=== PATIENT | male | born 1940 | race Caucasian/White ===

== ENCOUNTER 2017-03-04 17:06 | Inpatient (IN) | payer MEDICARE, BC ==
[2017-03-04] MEDS ORDERED: Docusate Sodium 100 MG Cap PO PRN (17:35)
[2017-03-04] MEDS ORDERED: Acetaminophen 325 MG Tab PO PRN (17:35)
[2017-03-04 17:40] LABS: CHLORIDE,CL 105 mEq/L (98-106); SODIUM,NA 140 mEq/L (136-145)
[2017-03-04] MEDS ORDERED: Lactated Ringers 1,000 ML IV SCH (17:45)
[2017-03-04] MEDS ORDERED: Acetaminophen 500 MG Tab PO PRN (18:35)
[2017-03-04] MEDS: Sodium Chloride 0.9% 1,000 ML IV SCH (20:22)
[2017-03-04] MEDS: Mirtazapine 15 MG Tab PO SCH (20:28)
[2017-03-05] MEDS: Sodium Chloride 0.9% 1,000 ML IV SCH (06:10)
[2017-03-05] MEDS: atorvaSTATin 20 MG Tab PO SCH (08:43)
[2017-03-05] MEDS: Sertraline 25 MG Tab PO SCH (08:43)
[2017-03-05] MEDS: Levothyroxine 100 MCG Tab PO SCH (08:43)
[2017-03-05] MEDS: Pantoprazole 40 MG Vial IVPUSH SCH (09:55)
--- NOTE | 2017-03-05 10:16 | PN ---
DATE: 03/05/2017 S: Dillon Michael Bright came in with GI bleeding. He is basically without complaints. No pain at all, but he is on anticoagulants for atrial fibrillation. O: NECK: On examination today, neck was supple. CHEST: Clear. CARDIAC: Regular, grade 2 to 3 murmur, left sternal border. ABDOMEN: Soft. Bowel sounds are good. No palpable mass or tenderness. ASSESSMENT: GASTROINTESTINAL BLEEDING, QUESTION ETIOLOGY. P: His hemoglobin is down 7.5, I will type and cross, transfuse unit, give him some Aqua-Shavon and keep him off the Coumadin and go from there. MARIANNE/CRIS /[id number]
[2017-03-05] MEDS: Sucralfate 1 GM Tab PO SCH ×2 (11:28→16:59)
[2017-03-05] MEDS ORDERED: Warfarin 5 MG Tab PO SCH (12:00)
[2017-03-05] MEDS: Mirtazapine 15 MG Tab PO SCH (19:45)
[2017-03-06] MEDS: Sucralfate 1 GM Tab PO SCH ×2 (06:41→11:15)
[2017-03-06] MEDS: Pantoprazole 40 MG Vial IVPUSH SCH (08:34)
[2017-03-06] MEDS: atorvaSTATin 20 MG Tab PO SCH (08:34)
[2017-03-06] MEDS: Sertraline 25 MG Tab PO SCH (08:35)
[2017-03-06] MEDS: Levothyroxine 100 MCG Tab PO SCH (08:35)
[2017-03-06 13:17] VITALS: BP 149/69
--- NOTE | 2017-03-07 08:25 | PN ---
DATE: 03/06/2017 S: Dillon Bright is in with GI bleeding. O: GENERAL: The patient is alert and orientated. VITAL SIGNS: As noted. NECK: Supple. CHEST: Clear. CARDIAC: Regular. ABDOMEN: Soft. ASSESSMENT AND PLAN: He did receive 2 units of blood yesterday. Hemoglobin was at 9.9. I will check it again this afternoon. He is bound and determined to go home, and will go from there. I gave him AquaMEPHYTON yesterday to bring INR. We just have to keep him off Coumadin until we evaluate this GI bleeding. MARIANNE/CRIS /[id number]
--- NOTE | 2017-03-07 08:28 | DISCH ---
REASON FOR HOSPITALIZATION: Dillon Bright is a gentleman who came in with GI bleeding, on anticoagulation for atrial fibrillation. During his stay here, his cardiac status remained normal, so I think he is in paroxysmal atrial fibrillation. I did stop his Coumadin and gave him AquaMEPHYTON, had a type and cross and transfused 2 units of RBCs, because hemoglobin dropped down to 7.5, today it has been consistent at 9.7, no evidence of further GI bleeding. PHYSICAL EXAMINATION: NECK: Supple. CHEST: Clear. CARDIAC: Regular. ABDOMEN: Soft. IMPRESSION: 1. Gastrointestinal bleeding, question etiology. 2. Depression. 3. Hypertension. 4. Atrial fibrillation. 5. Hypothyroidism. DISPOSITION: The patient is now discharged home. I will see him back in the clinic on Saturday for a hemoglobin check, and I will proceed with EGD and colonoscopy because of this GI bleeding. He has not had either procedure for a long time. DISCHARGE MEDICATIONS: Include home medications except warfarin and I added Protonix 40 daily. DISCHARGE DIAGNOSIS: 1. GASTROINTESTINAL BLEED. 2. ATRIAL FIBRILLATION. 3. HYPOTHYROIDISM. MARIANNE/CRIS /[id number]
== END 2017-03-06 15:10 | disposition home or self-care (01) | DRG 812 ==
LOC: CC.LAB 17:06 → UNDOADMIN 17:30 → CC.MS 17:30
PROVIDERS: ADMIT Physician Assistant Medical; ATTEND General Practice
PROC: 30253N1 (ICD-10-PCS; principal; 2017-03-04)
DX: D64.9 Anemia, unspecified (principal); K92.2 Gastrointestinal hemorrhage, unspecified; I95.9 Hypotension, unspecified; I48.0 Paroxysmal atrial fibrillation; R53.1 Weakness; Z79.01 Long term (current) use of anticoagulants; F32.9 Major depressive disorder, single episode, unspecified; I10 Essential (primary) hypertension; E03.9 Hypothyroidism, unspecified
CPT/HCPCS: 36415; 36430; 80048; 81001; 82270; 82550; 84484; 85025; 85610; 86850; 86900; 86901; 86920; 86922; 93005; 93010; A9270-GY; C9113; J3430; J7030; J7120; P9016

== ENCOUNTER → 2017-03-08 | Day surgery (SDC) | payer MEDICARE, BC ==
[~2017-03-08] MED LIST: Lactated Ringers 1,000 ML IV SCH; Propofol 200 MG/20 ML SDV IV ONE
[2017-03-08 14:13] VITALS: BP 122/69
--- NOTE | 2017-03-11 07:56 | OR ---
DATE OF OPERATION: 03/08/2017 PREOPERATIVE DIAGNOSIS: GI BLEED. POSTOPERATIVE DIAGNOSIS: GI BLEED. SURGEON: Darien Becker MD PROCEDURE: 1. FULL-LENGTH EGD WITH BIOPSIES X2, HECTOR. 2. COLONOSCOPY. 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 BODY AFTER ALLERGIES: COMPLICATIONS: None. SPECIMEN: 1. Pyloric biopsy x2. 2. HECTOR. FINDINGS: 1. Full-length EGD. 2. Multiple gastric ulcers, distal antrum without active bleeding. 3. Essentially normal full length colonoscopy with minimal diverticular disease. RECOMMENDATIONS: Medical follow up with Dr. Gavin. INDICATIONS: The patient was recently in the hospital with a hemoglobin of [address] positive stool[address] Dr. Gavin, ultimately sent him for upper and lower endoscopy. DESCRIPTION OF PROCEDURE: The patient was prepped and draped, placed in left lateral decubitus position. A lubricated Olympus gastroscope inserted over a bit and easily intubated in the esophagus. Esophageal lining was benign for the most part of its entire course. Z-line around 39.5 to 40 cm. No hiatal hernia, stricturing or inflammatory change seen. Scope advanced into the stomach through the pylorus and ultimately into the second and third portion of duodenum, these appeared benign as did the bulb. Scope was brought back into the stomach and retroflexed. The upper fundus and cardia appeared unremarkable. Upon straightening, for the most part of the distal fundus and antrum were benign. Near the pylorus patient had 4 to 5 chronic gastric ulcers none of them had adherent clot or signs of any active bleeding at this time. Two biopsies of those areas were taken along with a HECTOR test. Air was then suctioned and scope was removed from the stomach without complication. A lubricated Olympus colonoscope was then inserted and relatively easily advanced all way to the cecum. Direct visualization of the ileocecal valve and appendiceal orifice was accomplished. Bowel prep was fine. Upon withdrawal of the scope, the cecum, ascending, and transverse colon appeared grossly unremarkable throughout the left colon including the sigmoid and rectosigmoid areas. I found no signs of any polyps, mass, ulcerations, or bleeding sites. There were no vascular abnormalities or signs of colitis. There were minimal scattered diverticula without any inflammatory change. The rectal vault appeared benign. Retroflexion showed no anal lesions. Air was then suctioned and scope was removed without complication. MJP/MODL /[id number]
== END ==
LOC: CC.SDS 07:54
PROVIDERS: ATTEND Family Medicine
DX: K31.7 Polyp of stomach and duodenum (principal); Q43.8 Other specified congenital malformations of intestine; K57.30 Diverticulosis of large intestine without perforation or abscess without bleeding; K31.89 Other diseases of stomach and duodenum; I10 Essential (primary) hypertension; E78.5 Hyperlipidemia, unspecified; N40.0 Benign prostatic hyperplasia without lower urinary tract symptoms; E53.8 Deficiency of other specified B group vitamins; Z95.2 Presence of prosthetic heart valve; Z98.890 Other specified postprocedural states; Z79.01 Long term (current) use of anticoagulants; Z87.891 Personal history of nicotine dependence; Z72.0 Tobacco use
CPT/HCPCS: 36415; 43239; 45378; 85025; 85610; 87081; J2704; J7120; 00810; 88305

== ENCOUNTER 2017-05-15 13:12 | Emergency (ER) | payer MEDICARE, BC ==
--- NOTE | 2017-05-15 13:56 | EDM.PDOC ---
ED HPI GENERAL MEDICAL PROBLEM - General Chief Complaint: General Stated Complaint: "spaced out" Time Seen by Provider: 05/15/17 13:35 Source of Information: Reports: Patient, Family History Limitations: Reports: No Limitations - History of Present Illness INITIAL COMMENTS - FREE TEXT/NARRATIVE: Pt was sitting at kitchen table and "spaced out" according to lasted about 2-3 minutes. Did answer questions. Was able to stand up with help of son and was brought in. No weakness was noted at that time. Doesn't remember the episode. He accurately remembers what he did this morning according to . 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 Is on coumadin for valve replacement in the past. Is blind in the left eye and he states that the eye Dr. told him he thinks that he had a stroke in that eye. No weakness on either side. Denies any headache, dizziness or weakness. States that he feels fine now. Onset: Sudden Associated Symptoms: Reports: No Other Symptoms - Related Data Allergies Allergy/AdvReac Type Severity Reaction Status Date / Time No Known Allergies Allergy Verified 05/15/17 13:20 Home Meds: Home Meds Acetaminophen [Tylenol Extra Strength] 1,000 mg PO Q6H PRN 04/26/15 [History] Levothyroxine Sodium [Synthroid] 100 mcg PO DAILY 04/26/15 [History] Metoprolol Succinate [Toprol XL 50mg] 50 mg PO DAILY 04/26/15 [History] Mirtazapine [Remeron] 15 mg PO BEDTIME 04/26/15 [History] atorvaSTATin Calcium [Atorvastatin Calcium] 40 mg PO DAILY 04/26/15 [History] Sertraline HCl 50 mg PO DAILY 03/04/17 [History] Pantoprazole Sodium [Protonix] 40 mg PO DAILY 03/07/17 [History] Warfarin [Coumadin] 2.5 mg PO DAILY 05/15/17 [History] Past Medical History HEENT History: Reports: Glaucoma Other HEENT History: blind in left eye Cardiovascular History: Reports: Aneurysm, High Cholesterol, Hypertension Gastrointestinal History: Reports: GERD Psychiatric History: Reports: Depression Endocrine/Metabolic History: Reports: Hypothyroidism Hematologic History: Reports: Anticoagulation Therapy - Past Surgical History HEENT Surgical History: Reports: Cataract Surgery Cardiovascular Surgical History: Reports: Aneurysm, Valve Replacement GI Surgical History: Reports: Cholecystectomy Social & Family History - Tobacco Use Smoking Status *Q: Former Smoker Years of Tobacco use: 20 Used Tobacco, but Quit: Yes Month Tobacco Last Used: 1994 Second Hand Smoke Exposure: No - Caffeine Use Caffeine Use: Reports: Coffee - Recreational Drug Use Recreational Drug Use: No ED ROS GENERAL - Review of Systems Review Of Systems: See Below Constitutional: Reports: No Symptoms HEENT: Reports: No Symptoms Respiratory: Reports: No Symptoms Cardiovascular: Reports: No Symptoms GI/Abdominal: Reports: No Symptoms : Reports: No Symptoms Musculoskeletal: Reports: No Symptoms Skin: Reports: No Symptoms Neurological: Reports: Other (see HPI) Psychiatric: Denies: Agitation, Anxiety, Confusion ED EXAM, GENERAL - Physical Exam Exam: See Below Exam Limited By: No Limitations General Appearance: Alert, WD/WN, No Apparent Distress Eye Exam: Left Eye: Vision Changes (blind in the left eye.), Bilateral Eye: PERRL Ears: Normal External Exam, Normal Canal, Hearing Grossly Normal, Normal TMs Nose: Normal Inspection Throat/Mouth: Normal Inspection, Normal Oropharynx, Normal Voice, No Airway Compromise Head: Atraumatic Neck: Normal Inspection, Supple, Non-Tender Respiratory/Chest: No Respiratory Distress, Lungs Clear, Normal Breath Sounds Cardiovascular: Normal Peripheral Pulses, No Edema GI/Abdominal: Normal Bowel Sounds, Soft, Non-Tender Extremities: Normal Inspection, Non-Tender, No Pedal Edema, Normal Capillary Refill Neurological: Alert, Oriented, CN II-XII Intact, Normal Cognition, Normal Gait, Normal Reflexes, No Motor/Sensory Deficits Psychiatric: Normal Affect, Normal Mood Skin Exam: Warm, Dry, Intact, Normal Color Course - Vital Signs Last Recorded V/S: Last Vital Signs Temp 96.9 F 05/15/17 13:21 Pulse 59 L 05/15/17 13:21 Resp 18 05/15/17 13:21 BP 155/81 H 05/15/17 14:39 Pulse Ox 96 05/15/17 13:21 - Orders/Labs/Meds Labs: Laboratory Tests 05/15/17 05/15/17 05/15/17 Range/Units 13:49 14:00 14:00 WBC 6.3 (5.0-10.0) 10^3/uL RBC 4.58 (4.50-6.00) 10^6/uL Hgb 13.3 L (14.0-18.0) g/dL Hct 40.9 (40.0-54.0) % MCV 89.3 (82.0-94.0) fL MCH 29.0 (27.0-32.0) pg MCHC 32.5 L (33.0-38.0) g/dL RDW Coeff of Deborah 14.1 (11.0-15.0) % Plt Count 139 L (150-400) 10^3/uL Neut % (Auto) 72.0 (35-85) % Lymph % (Auto) 10.5 (10-55) % [place]duff[place] % (Auto) 12.4 (0-16) % Eos % (Auto) 4.6 (0-5) % Baso % (Auto) 0.5 (0-3) % Neut # (Auto) 4.51 (1.80-7.00) 10^3/uL Lymph # (Auto) 0.66 L (1.00-4.80) 10^3/uL Mcduffie # (Auto) 0.78 (0.00-0.80) 10^3/uL Eos # (Auto) 0.29 (0.00-0.45) 10^3/uL Baso # (Auto) 0.03 10^3/uL PT 19.0 H (9.7-12.3) SEC INR 1.73 H (0.92-1.18) Sodium (136-145) mEq/L Potassium (3.5-5.0) mEq/L Chloride (98-106) mEq/L Carbon Dioxide (21-32) mmol/L BUN (7-18) mg/dL Creatinine (0.7-1.3) mg/dL Est Cr Clr Drug Dosing mL/min Estimated GFR (MDRD) (>=60) mL/min Glucose (75-99) mg/dL Calcium (8.4-10.1) mg/dL Urine Color Yellow (YELLOW) Urine Appearance Clear (CLEAR) Urine pH 5.5 (4.5-8.0) Ur Specific [place] 1.010 (1.003-1.020) Urine Protein Negative (NEGATIVE) mg/dL Urine Glucose (UA) Negative (NEGATIVE) mg/dL Urine Ketones Negative (NEGATIVE) mg/dL Urine Occult Blood Trace-intact H (NEGATIVE) Urine Nitrite Negative (NEGATIVE) Urine Bilirubin Negative (NEGATIVE) Urine Urobilinogen 0.2 (0.2-1.0) EU/dL Ur Leukocyte Esterase Negative (NEGATIVE) Urine RBC Not seen (0-5) /HPF Urine WBC Not seen (0-5) /HPF 05/15/17 Range/Units 14:00 WBC (5.0-10.0) 10^3/uL RBC (4.50-6.00) 10^6/uL Hgb (14.0-18.0) g/dL Hct (40.0-54.0) % MCV (82.0-94.0) fL MCH (27.0-32.0) pg MCHC (33.0-38.0) g/dL RDW Coeff of Deborah (11.0-15.0) % Plt Count (150-400) 10^3/uL Neut % (Auto) (35-85) % Lymph % (Auto) (10-55) % [place]duffie % (Auto) (0-16) % Eos % (Auto) (0-5) % Baso % (Auto) (0-3) % Neut # (Auto) (1.80-7.00) 10^3/uL Lymph # (Auto) (1.00-4.80) 10^3/uL Mcduffie # (Auto) (0.00-0.80) 10^3/uL Eos # (Auto) (0.00-0.45) 10^3/uL Baso # (Auto) 10^3/uL PT (9.7-12.3) SEC INR (0.92-1.18) Sodium 140 (136-145) mEq/L Potassium 5.1 H (3.5-5.0) mEq/L Chloride 105 (98-106) mEq/L Carbon Dioxide 31 (21-32) mmol/L BUN 22 H (7-18) mg/dL Creatinine 1.6 H (0.7-1.3) mg/dL Est Cr Clr Drug Dosing 43.94 mL/min Estimated GFR (MDRD) 42 L (>=60) mL/min Glucose 109 H (75-99) mg/dL Calcium 9.1 (8.4-10.1) mg/dL Urine Color (YELLOW) Urine Appearance (CLEAR) Urine pH (4.5-8.0) Ur Specific [place] (1.003-1.020) Urine Protein (NEGATIVE) mg/dL Urine Glucose (UA) (NEGATIVE) mg/dL Urine Ketones (NEGATIVE) mg/dL Urine Occult Blood (NEGATIVE) Urine Nitrite (NEGATIVE) Urine Bilirubin (NEGATIVE) Urine Urobilinogen (0.2-1.0) EU/dL Ur Leukocyte Esterase (NEGATIVE) Urine RBC (0-5) /HPF Urine WBC (0-5) /HPF - Re-Assessments/Exams Free Text/Narrative Re-Assessment/Exam: 05/15/17 1500 In to discuss the CT results which are without changes. Reviewed lab results with the pt and . Departure - Departure Time of Disposition: 15:01 Disposition: Home, Self-Care 01 Condition: Good Clinical Impression: TIA (transient ischemic attack) Qualifiers: Transient cerebral ischemia type: unspecified Qualified Code(s): G45.9 - Transient cerebral ischemic attack, unspecified - Discharge Information Referrals: Matthew Gavin MD [Primary Care Provider] - Forms: ED Department Discharge Additional Instructions: Increase coumadin to 2.5 mg 4 times a week Recheck with Dr. Gavin in 2 weeks for INR and recheck Carotid Ultrasound- schedule with xray Recheck if changes or symptoms reoccur - Problem List & Annotations (1) TIA (transient ischemic attack) SNOMED Code(s): 836839237, [id number] Code(s): G45.9 - TRANSIENT CEREBRAL ISCHEMIC ATTACK, UNSPECIFIED Status: Acute Priority: High Qualifiers: Transient cerebral ischemia type: unspecified Qualified Code(s): G45.9 - Transient cerebral ischemic attack, unspecified - Problem List Review Problem List Initiated/Reviewed/Updated: Yes
[2017-05-15 14:39] VITALS: BP 155/81
== END 2017-05-15 15:10 | disposition home or self-care (01) ==
LOC: CC.ED 13:12
DX: G45.9 Transient cerebral ischemic attack, unspecified (principal); K21.9 Gastro-esophageal reflux disease without esophagitis; E03.9 Hypothyroidism, unspecified; Z90.49 Acquired absence of other specified parts of digestive tract; Z95.5 Presence of coronary angioplasty implant and graft; Z87.891 Personal history of nicotine dependence; Z79.899 Other long term (current) drug therapy; Z79.01 Long term (current) use of anticoagulants
CPT/HCPCS: 36415; 70450; 80048; 81001; 85025; 85610; 99284

== ENCOUNTER 2018-01-24 08:48 | Inpatient (IN) | payer MEDICARE, BC ==
--- NOTE | 2018-01-24 15:58 | PCM.HP ---
H&P History of Present Illness - General Date of Service: 01/24/18 Source of Information: Patient, Other (Hospital Records) History Limitations: Reports: No Limitations - History of Present Illness Initial Comments - Free Text/Narative: Dillon is a 77 year old male with PMH of [place], atrial fibrillation, hypertension, hyperlipidemia, hypothyroidism, and CAD who is admitted to swing bed from [facility]. 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 He is admitted to swing bed for wound care. He currently has wound vac to his right foot with suction at 125. He does have extensive medical history. He underwent mitral valve clipping for severe MR on 12/24/2017. He also had recent angiogram revealing 80% stenosis of his left ICA. This was unable to be stented due to calcification and tortuosity of the vessel. He has been on both Plavix and Coumadin for the above issues. Throughout hospitalization at [place], they have struggled with bleeding from both his right foot and his right thigh skin graft site. They did stop the wound vac for some time and have also replaced it. They have been reinforcing the dressing to control bleeding. Upon arrival to hospital, patient has significant bleeding from both right foot and skin graft site to right thigh. Both dressings are saturated with blood. Patient denies any pain. Canister from wound vac has scant amount of sanginous drainage. He reports he has been feeling well. He has no complaints. Contacted Dr. Manuel (plastic surgeon at [facility]) to discuss bleeding. He recommends we just continue to reinforce dressing and change wound vac as needed. He recommend we discuss Plavix and Coumadin use with staff radiographer. Discussed with Dr. Kingston (cardiology at [facility]). He reports we can stop Plavix and weight the benefit vs. risk of continuing Coumadin. I do feel that given patients recent mitral valve clipping and 80% stenosis of left carotid, we should continue Coumadin as directed by Coumadin clinic in [place]. - Related Data Allergies/Adverse Reactions: Allergies Allergy/AdvReac Type Severity Reaction Status Date / Time No Known Allergies Allergy Verified 01/24/18 11:50 Home Medications: Home Meds Acetaminophen [Tylenol Extra Strength] 1,000 mg PO Q6H PRN 04/26/15 [History] Levothyroxine Sodium [Synthroid] 100 mcg PO DAILY 04/26/15 [History] Metoprolol Succinate [Toprol XL 50mg] 50 mg PO DAILY 04/26/15 [History] Mirtazapine [Remeron] 15 mg PO BEDTIME 04/26/15 [History] atorvaSTATin Calcium [Atorvastatin Calcium] 40 mg PO DAILY 04/26/15 [History] Sertraline HCl 50 mg PO DAILY 03/04/17 [History] Pantoprazole Sodium [Protonix] 40 mg PO DAILY 03/07/17 [History] Warfarin [Coumadin] 2.5 mg PO MOWEFR 05/15/17 [History] Clopidogrel [Plavix] 75 mg PO DAILY 01/24/18 [History] Ferrous Sulfate 325 mg PO DAILY 01/24/18 [History] Folic Acid 1 mg PO DAILY 01/24/18 [History] Latanoprost [Xalatan 0.005% Ophth Soln] 1 drop EYELF BEDTIME 01/24/18 [History] Lisinopril [Prinivil] 10 mg PO DAILY 01/24/18 [History] Warfarin [Coumadin] 1.25 mg PO SUTUTHSA 01/24/18 [History] oxyCODONE HCl/Acetaminophen [Oxycodone-Acetaminophen 5-325] 1 - 2 tab PO Q4H PRN 01/24/18 [History] Past Medical History HEENT History: Reports: Glaucoma Other HEENT History: blind in left eye Cardiovascular History: Reports: Aneurysm, High Cholesterol, Hypertension Gastrointestinal History: Reports: GERD Psychiatric History: Reports: Depression Endocrine/Metabolic History: Reports: Hypothyroidism Hematologic History: Reports: Anticoagulation Therapy - Past Surgical History HEENT Surgical History: Reports: Cataract Surgery Cardiovascular Surgical History: Reports: Aneurysm, Valve Replacement, Other ( See Below) Other Cardiovascular Surgeries/Procedures: Percutaneous repair of Mitral valve with deann clip device GI Surgical History: Reports: Cholecystectomy Social & Family History - Family History Family Medical History: Unobtainable - Caffeine Use Caffeine Use: Reports: Coffee H&P Review of Systems - Review of Systems: Review Of Systems: See Below General: Reports: Weakness. Denies: Fever, Chills, Fatigue, Decreased Appetite HEENT: Reports: No Symptoms Pulmonary: Denies: Shortness of Breath, Wheezing, Pleuritic Chest Pain, Cough, Sputum Cardiovascular: Reports: Dyspnea on Exertion. Denies: Chest Pain, Palpitations , Orthopnea, Lightheadedness, Syncope Gastrointestinal: Reports: No Symptoms. Denies: Abdominal Pain, Diarrhea, Nausea, Vomiting Genitourinary: Reports: No Symptoms. Denies: Dysuria, Frequency, Urgency Musculoskeletal: Reports: Leg Pain, Foot Pain Skin: Reports: Other (ecchymosis to abdomen, skin graft to right thign, wound vac to right foot) Psychiatric: Reports: Depression Neurological: Reports: Weakness. Denies: Confusion, Dizziness, Headache, Numbness, Syncope, Tingling Hematologic/Lymphatic: Reports: Easy Bleeding Immunologic: Reports: No Symptoms Exam - Exam Exam: See Below - Vital Signs Vital Signs: Last Vital Signs Temp 96.0 F 01/24/18 15:22 Pulse 60 01/24/18 15:22 Resp 20 01/24/18 15:22 BP 96/45 L 01/24/18 15:22 Pulse Ox 97 01/24/18 15:22 Weight: 180 lb 9.6 oz - Exam Quality Assessment: DVT Prophylaxis, Skin Breakdown General: Alert, Oriented, 4 Neck: Supple, Trachea Midline, 2 Lungs: Clear to Auscultation, Normal Respiratory Effort Cardiovascular: Regular Rate, Regular Rhythm, Systolic Murmur GI/Abdominal Exam: Normal Bowel Sounds, Soft, Non-Tender, No Organomegaly, No Distention, No Abnormal Bruit, No Mass, Pelvis Stable Extremities: Normal Capillary Refill, Leg Pain, Other (skin graft to right thigh , wound vac to right foot- actively bleeding). No: Increased Warmth, Redness Peripheral Pulses: 1+: Posterior Tibial (R), Dorsalis Pedis (R) Skin: Warm, Dry, Ecchymosis (abdomen), Wound (right thigh and right foot, see images) Neurological: Cranial Nerves Intact Neuro Extensive - Mental Status: Alert, Oriented x3, Other (flat affect) Psychiatric: Alert, Depressed, Other (flat affect) - Patient Data Result Diagrams: 01/24/18 16:05 01/24/18 16:05 - Problem List (1) Malignant melanoma of foot SNOMED Code(s): 199428017 ICD Code: C43.70 - MALIGNANT MELANOMA OF UNSPECIFIED LOWER LIMB, INCLUDING HIP Status: Acute Current Visit: Yes Qualifiers: Laterality: right Qualified Code(s): C43.71 - Malignant melanoma of right lower limb, including hip (2) Status post skin graft SNOMED Code(s): 824380454, 483859837, 350232658 ICD Code: Z94.5 - SKIN TRANSPLANT STATUS Status: Acute Current Visit: Yes (3) Status post implantation of mitral valve leaflet clip SNOMED Code(s): 46425656689038 ICD Code: Z98.890 - OTHER SPECIFIED POSTPROCEDURAL STATES; Z95.818 - PRESENCE OF OTHER CARDIAC IMPLANTS AND GRAFTS Status: Acute Current Visit: Yes (4) Carotid stenosis, left SNOMED Code(s): 284516766258063 ICD Code: I65.22 - OCCLUSION AND STENOSIS OF LEFT CAROTID ARTERY Status: Chronic Current Visit: Yes (5) Marfan's disease SNOMED Code(s): 69368986 ICD Code: Q87.40 - MARFAN'S SYNDROME, UNSPECIFIED Status: Chronic Current Visit: Yes (6) Hypertension SNOMED Code(s): 45157241 ICD Code: I10 - ESSENTIAL (PRIMARY) HYPERTENSION Status: Chronic Current Visit: Yes Qualifiers: Hypertension type: essential hypertension Qualified Code(s): I10 - Essential (primary) hypertension (7) Hyperlipidemia SNOMED Code(s): 58277999 ICD Code: E78.5 - HYPERLIPIDEMIA, UNSPECIFIED Status: Chronic Current Visit: Yes Qualifiers: Hyperlipidemia type: unspecified Qualified Code(s): E78.5 - Hyperlipidemia , unspecified (8) Hypothyroidism SNOMED Code(s): 08811493 ICD Code: E03.9 - HYPOTHYROIDISM, UNSPECIFIED Status: Chronic Current Visit: Yes Qualifiers: Hypothyroidism type: unspecified Qualified Code(s): E03.9 - Hypothyroidism , unspecified (9) Atrial fibrillation SNOMED Code(s): 71858865 ICD Code: I48.91 - UNSPECIFIED ATRIAL FIBRILLATION Status: Chronic Priority: Medium Current Visit: No Qualifiers: Atrial fibrillation type: chronic Qualified Code(s): I48.2 - Chronic atrial fibrillation (10) Status post right foot surgery SNOMED Code(s): 118957216, 47106492, 690653056 ICD Code: Z98.890 - OTHER SPECIFIED POSTPROCEDURAL STATES Status: Acute Current Visit: Yes Problem List Initiated/Reviewed/Updated: Yes Assessment/Plan Comment:: Change wound vac every [address] vaseline gauze under foam with dressing changes. Patient to be non-weightbearing to right foot. Use crutches for ambulation TID. Prevlon boots to BLE when in bed. No strenuous lifting, pushing, or pulling anything greater than 5 lbs for 6 weeks. Reinforce dressing to control bleeding. Notify provider if bleeding is uncontrolled and filling canister of wound vac. Hgb 8.3. Will monitor. Recheck in 2 days. Liver enzymes elevated in presence of normal bilirubin 0.8. AST 350. ALT 277. Patient has no abdominal pain. Will monitor labs. Creatinine 2.0. This is above patients baseline creatinine of ~1.5. Will give 1 L NS. Lab results discussed with Dr. Gavin, who was agreeable with above plan.
[2018-01-24] MEDS ORDERED: Sodium Chloride 0.9% 10 ML Syringe FLUSH PRN (16:18)
[2018-01-24] MEDS ORDERED: Acetaminophen 325 MG Tab PO PRN (16:18)
[2018-01-24] MEDS ORDERED: Sodium Chloride 0.9% 1,000 ML IV ONE (17:09)
[2018-01-24] MEDS: Acetaminophen 500 MG Tab PO PRN (19:40)
[2018-01-24] MEDS: Mirtazapine 15 MG Tab PO SCH (19:40)
[2018-01-24] MEDS: Latanoprost 0.005% Ophth Soln 2.5 ML Bottle EYELF SCH (19:48)
[2018-01-24] MEDS: Acetaminophen/oxyCODONE 325-5 MG Tab PO PRN (22:53)
[2018-01-25] MEDS ORDERED: Lactated Ringers 1,000 ML IV ONE (00:54)
[2018-01-25] MEDS: Pantoprazole 40 MG Tab.CR PO SCH (06:30)
[2018-01-25] MEDS: Levothyroxine 100 MCG Tab PO SCH (06:30)
[2018-01-25] MEDS: Folic Acid 1 MG Tab PO SCH (08:00)
[2018-01-25] MEDS: Simvastatin 20 MG Tab PO SCH (08:00)
[2018-01-25] MEDS: Lisinopril 10 MG Tab PO SCH (08:00)
[2018-01-25] MEDS: Sertraline 25 MG Tab PO SCH (08:00)
[2018-01-25] MEDS: Ferrous Sulfate 324 MG Tab.EC PO SCH (08:00)
[2018-01-25] MEDS: Acetaminophen/oxyCODONE 325-5 MG Tab PO PRN ×2 (16:27→20:10)
[2018-01-25] MEDS: Mirtazapine 15 MG Tab PO SCH (19:27)
[2018-01-25] MEDS: Latanoprost 0.005% Ophth Soln 2.5 ML Bottle EYELF SCH (19:27)
[2018-01-26] MEDS: Levothyroxine 100 MCG Tab PO SCH (07:03)
[2018-01-26] MEDS: Pantoprazole 40 MG Tab.CR PO SCH (07:03)
[2018-01-26] MEDS: Lisinopril 10 MG Tab PO SCH (08:00)
[2018-01-26] MEDS: Folic Acid 1 MG Tab PO SCH (08:33)
[2018-01-26] MEDS: Ferrous Sulfate 324 MG Tab.EC PO SCH (08:33)
[2018-01-26] MEDS: Simvastatin 20 MG Tab PO SCH (08:33)
[2018-01-26] MEDS: Sertraline 25 MG Tab PO SCH (08:33)
[2018-01-26] MEDS ORDERED: Sodium Chloride 0.9% 250 ML ONE (09:25)
[2018-01-26] MEDS ORDERED: Warfarin 2.5 MG Tab PO ONE (12:00)
[2018-01-26] MEDS: Acetaminophen 500 MG Tab PO PRN (16:36)
[2018-01-26] MEDS: Acetaminophen/oxyCODONE 325-5 MG Tab PO PRN (19:40)
[2018-01-26] MEDS: Mirtazapine 15 MG Tab PO SCH (19:40)
[2018-01-26] MEDS: Latanoprost 0.005% Ophth Soln 2.5 ML Bottle EYELF SCH (20:02)
[2018-01-27] MEDS: Simvastatin 20 MG Tab PO SCH (07:47)
[2018-01-27] MEDS: Levothyroxine 100 MCG Tab PO SCH (07:47)
[2018-01-27] MEDS: Folic Acid 1 MG Tab PO SCH (07:47)
[2018-01-27] MEDS: Sertraline 25 MG Tab PO SCH (07:47)
[2018-01-27] MEDS: Ferrous Sulfate 324 MG Tab.EC PO SCH (07:48)
[2018-01-27] MEDS: Pantoprazole 40 MG Tab.CR PO SCH (07:48)
[2018-01-27] MEDS: Lisinopril 10 MG Tab PO SCH (08:23)
[2018-01-27] MEDS: Mirtazapine 15 MG Tab PO SCH (19:53)
[2018-01-27] MEDS: Docusate Sodium 100 MG Cap PO PRN (19:53)
[2018-01-27] MEDS: Latanoprost 0.005% Ophth Soln 2.5 ML Bottle EYELF SCH (19:54)
[2018-01-27] MEDS: Acetaminophen/oxyCODONE 325-5 MG Tab PO PRN (19:56)
[2018-01-28] MEDS: Pantoprazole 40 MG Tab.CR PO SCH (06:32)
[2018-01-28] MEDS: Levothyroxine 100 MCG Tab PO SCH (06:32)
[2018-01-28] MEDS: Ferrous Sulfate 324 MG Tab.EC PO SCH (07:53)
[2018-01-28] MEDS: Simvastatin 20 MG Tab PO SCH (07:53)
[2018-01-28] MEDS: Sertraline 25 MG Tab PO SCH (07:54)
[2018-01-28] MEDS: Folic Acid 1 MG Tab PO SCH (07:54)
[2018-01-28] MEDS: Lisinopril 10 MG Tab PO SCH (08:10)
[2018-01-28] MEDS: Warfarin 5 MG Tab PO SCH (13:13)
[2018-01-28] MEDS: Acetaminophen/oxyCODONE 325-5 MG Tab PO PRN (19:59)
[2018-01-28] MEDS: Latanoprost 0.005% Ophth Soln 2.5 ML Bottle EYELF SCH (20:00)
[2018-01-28] MEDS: Mirtazapine 15 MG Tab PO SCH (20:00)
[2018-01-28] MEDS: Docusate Sodium 100 MG Cap PO PRN (20:02)
[2018-01-29] MEDS: Pantoprazole 40 MG Tab.CR PO SCH (06:58)
[2018-01-29] MEDS: Levothyroxine 100 MCG Tab PO SCH (06:58)
[2018-01-29] MEDS: Simvastatin 20 MG Tab PO SCH (07:29)
[2018-01-29] MEDS: Lisinopril 10 MG Tab PO SCH (07:29)
[2018-01-29] MEDS: Sertraline 25 MG Tab PO SCH (07:29)
[2018-01-29] MEDS: Folic Acid 1 MG Tab PO SCH (07:29)
[2018-01-29] MEDS: Ferrous Sulfate 324 MG Tab.EC PO SCH (07:30)
[2018-01-29] MEDS: Warfarin 5 MG Tab PO SCH ×2 (08:08→13:12)
[2018-01-29] MEDS: Acetaminophen/oxyCODONE 325-5 MG Tab PO PRN (19:52)
[2018-01-29] MEDS: Mirtazapine 15 MG Tab PO SCH (19:52)
[2018-01-29] MEDS: Latanoprost 0.005% Ophth Soln 2.5 ML Bottle EYELF SCH (19:52)
[2018-01-29] MEDS: Docusate Sodium 100 MG Cap PO PRN (20:02)
[2018-01-30] MEDS: Levothyroxine 100 MCG Tab PO SCH (07:44)
[2018-01-30] MEDS: Sertraline 25 MG Tab PO SCH (07:44)
[2018-01-30] MEDS: Simvastatin 20 MG Tab PO SCH (07:44)
[2018-01-30] MEDS: Ferrous Sulfate 324 MG Tab.EC PO SCH (07:44)
[2018-01-30] MEDS: Folic Acid 1 MG Tab PO SCH (07:44)
[2018-01-30] MEDS: Lisinopril 10 MG Tab PO SCH (07:44)
[2018-01-30] MEDS: Pantoprazole 40 MG Tab.CR PO SCH (07:44)
[2018-01-30] MEDS: Warfarin 5 MG Tab PO SCH (12:39)
[2018-01-30] MEDS: Mirtazapine 15 MG Tab PO SCH (19:29)
[2018-01-30] MEDS: Latanoprost 0.005% Ophth Soln 2.5 ML Bottle EYELF SCH (19:29)
[2018-01-30] MEDS: Acetaminophen/oxyCODONE 325-5 MG Tab PO PRN (19:30)
[2018-01-31] MEDS: Pantoprazole 40 MG Tab.CR PO SCH (06:41)
[2018-01-31] MEDS: Levothyroxine 100 MCG Tab PO SCH (06:41)
[2018-01-31] MEDS: Ferrous Sulfate 324 MG Tab.EC PO SCH (07:34)
[2018-01-31] MEDS: Folic Acid 1 MG Tab PO SCH (07:34)
[2018-01-31] MEDS: Lisinopril 10 MG Tab PO SCH (07:34)
[2018-01-31] MEDS: Simvastatin 20 MG Tab PO SCH (07:34)
[2018-01-31] MEDS: Sertraline 25 MG Tab PO SCH (07:35)
[2018-01-31] MEDS: Acetaminophen/oxyCODONE 325-5 MG Tab PO PRN ×3 (07:36→19:45)
[2018-01-31] MEDS ORDERED: Warfarin 2 MG Tab PO SCH (12:00)
[2018-01-31] MEDS: Mirtazapine 15 MG Tab PO SCH (19:45)
[2018-01-31] MEDS: Latanoprost 0.005% Ophth Soln 2.5 ML Bottle EYELF SCH (19:47)
[2018-02-01] MEDS: Pantoprazole 40 MG Tab.CR PO SCH (06:45)
[2018-02-01] MEDS: Levothyroxine 100 MCG Tab PO SCH (06:45)
[2018-02-01] MEDS: Simvastatin 20 MG Tab PO SCH (07:40)
[2018-02-01] MEDS: Ferrous Sulfate 324 MG Tab.EC PO SCH (07:41)
[2018-02-01] MEDS: Folic Acid 1 MG Tab PO SCH (07:41)
[2018-02-01] MEDS: Sertraline 25 MG Tab PO SCH (07:41)
[2018-02-01] MEDS: Lisinopril 10 MG Tab PO SCH (07:41)
[2018-02-01] MEDS: Docusate Sodium 100 MG Cap PO PRN (09:36)
[2018-02-01] MEDS: Warfarin 2 MG Tab PO SCH (11:45)
[2018-02-01] MEDS: Mirtazapine 15 MG Tab PO SCH (19:29)
[2018-02-01] MEDS: Latanoprost 0.005% Ophth Soln 2.5 ML Bottle EYELF SCH (19:30)
[2018-02-01] MEDS: Acetaminophen/oxyCODONE 325-5 MG Tab PO PRN (20:25)
[2018-02-02] MEDS: Levothyroxine 100 MCG Tab PO SCH (06:32)
[2018-02-02] MEDS: Pantoprazole 40 MG Tab.CR PO SCH (06:32)
[2018-02-02] MEDS: Sertraline 25 MG Tab PO SCH (08:39)
[2018-02-02] MEDS: Folic Acid 1 MG Tab PO SCH (08:40)
[2018-02-02] MEDS: Lisinopril 10 MG Tab PO SCH (08:40)
[2018-02-02] MEDS: Simvastatin 20 MG Tab PO SCH (08:40)
[2018-02-02] MEDS: Ferrous Sulfate 324 MG Tab.EC PO SCH (08:40)
[2018-02-02] MEDS: Acetaminophen/oxyCODONE 325-5 MG Tab PO PRN ×2 (11:26→20:31)
[2018-02-02] MEDS: Warfarin 2 MG Tab PO SCH (11:28)
[2018-02-02] MEDS: Latanoprost 0.005% Ophth Soln 2.5 ML Bottle EYELF SCH (20:31)
[2018-02-02] MEDS: Mirtazapine 15 MG Tab PO SCH (20:31)
[2018-02-03] MEDS: Pantoprazole 40 MG Tab.CR PO SCH (07:06)
[2018-02-03] MEDS: Simvastatin 20 MG Tab PO SCH (07:06)
[2018-02-03] MEDS: Ferrous Sulfate 324 MG Tab.EC PO SCH (07:06)
[2018-02-03] MEDS: Folic Acid 1 MG Tab PO SCH (07:07)
[2018-02-03] MEDS: Levothyroxine 100 MCG Tab PO SCH (07:07)
[2018-02-03] MEDS: Sertraline 25 MG Tab PO SCH (07:13)
[2018-02-03] MEDS: Lisinopril 10 MG Tab PO SCH (07:14)
[2018-02-03] MEDS: Warfarin 2 MG Tab PO SCH (11:28)
[2018-02-03] MEDS: Acetaminophen/oxyCODONE 325-5 MG Tab PO PRN (20:17)
[2018-02-03] MEDS: Mirtazapine 15 MG Tab PO SCH (20:17)
[2018-02-03] MEDS: Latanoprost 0.005% Ophth Soln 2.5 ML Bottle EYELF SCH (20:20)
[2018-02-03] MEDS: Docusate Sodium 100 MG Cap PO PRN (20:22)
[2018-02-04] MEDS: Levothyroxine 100 MCG Tab PO SCH (06:15)
[2018-02-04] MEDS: Pantoprazole 40 MG Tab.CR PO SCH (06:15)
[2018-02-04] MEDS: Simvastatin 20 MG Tab PO SCH (07:13)
[2018-02-04] MEDS: Folic Acid 1 MG Tab PO SCH (07:13)
[2018-02-04] MEDS: Ferrous Sulfate 324 MG Tab.EC PO SCH (07:13)
[2018-02-04] MEDS: Sertraline 25 MG Tab PO SCH (07:14)
[2018-02-04] MEDS: Lisinopril 10 MG Tab PO SCH (07:18)
[2018-02-04] MEDS: Warfarin 2 MG Tab PO SCH (11:00)
[2018-02-04] MEDS: Acetaminophen/oxyCODONE 325-5 MG Tab PO PRN ×2 (11:01→20:28)
[2018-02-04] MEDS: Acetaminophen 500 MG Tab PO PRN (15:29)
[2018-02-04] MEDS: Mirtazapine 15 MG Tab PO SCH (20:27)
[2018-02-04] MEDS: Latanoprost 0.005% Ophth Soln 2.5 ML Bottle EYELF SCH (20:28)
[2018-02-05] MEDS: Pantoprazole 40 MG Tab.CR PO SCH (06:25)
[2018-02-05] MEDS: Levothyroxine 100 MCG Tab PO SCH (06:25)
[2018-02-05] MEDS: Ferrous Sulfate 324 MG Tab.EC PO SCH (07:43)
[2018-02-05] MEDS: Folic Acid 1 MG Tab PO SCH (07:43)
[2018-02-05] MEDS: Simvastatin 20 MG Tab PO SCH (07:43)
[2018-02-05] MEDS: Sertraline 25 MG Tab PO SCH (07:43)
[2018-02-05] MEDS: Lisinopril 10 MG Tab PO SCH (07:47)
[2018-02-05] MEDS: Acetaminophen/oxyCODONE 325-5 MG Tab PO PRN ×2 (10:53→20:17)
[2018-02-05] MEDS: Warfarin 2 MG Tab PO SCH (11:42)
[2018-02-05] MEDS: Mirtazapine 15 MG Tab PO SCH (20:16)
[2018-02-05] MEDS: Latanoprost 0.005% Ophth Soln 2.5 ML Bottle EYELF SCH (20:16)
[2018-02-06] MEDS: Levothyroxine 100 MCG Tab PO SCH (06:16)
[2018-02-06] MEDS: Pantoprazole 40 MG Tab.CR PO SCH (06:16)
[2018-02-06] MEDS: Lisinopril 10 MG Tab PO SCH (08:04)
[2018-02-06] MEDS: Simvastatin 20 MG Tab PO SCH (08:04)
[2018-02-06] MEDS: Folic Acid 1 MG Tab PO SCH (08:04)
[2018-02-06] MEDS: Ferrous Sulfate 324 MG Tab.EC PO SCH (08:04)
[2018-02-06] MEDS: Sertraline 25 MG Tab PO SCH (08:04)
[2018-02-06] MEDS: Acetaminophen 500 MG Tab PO PRN (11:38)
[2018-02-06] MEDS: Mirtazapine 15 MG Tab PO SCH (19:22)
[2018-02-06] MEDS: Latanoprost 0.005% Ophth Soln 2.5 ML Bottle EYELF SCH (19:23)
[2018-02-06] MEDS: Acetaminophen/oxyCODONE 325-5 MG Tab PO PRN (19:25)
[2018-02-07] MEDS: Levothyroxine 100 MCG Tab PO SCH (06:15)
[2018-02-07] MEDS: Pantoprazole 40 MG Tab.CR PO SCH (06:16)
[2018-02-07 07:37] VITALS: BP 111/54
[2018-02-07] MEDS: Sertraline 25 MG Tab PO SCH (07:48)
[2018-02-07] MEDS: Simvastatin 20 MG Tab PO SCH (07:48)
[2018-02-07] MEDS: Ferrous Sulfate 324 MG Tab.EC PO SCH (07:48)
[2018-02-07] MEDS: Folic Acid 1 MG Tab PO SCH (07:48)
[2018-02-07] MEDS: Lisinopril 10 MG Tab PO SCH (07:48)
--- NOTE | 2018-02-07 08:34 | PCM.DCSUM1 ---
Discharge Summary - Hospital Course HPI Initial Comments: Dillon is a 77 year old male with PMH of [place], atrial fibrillation, hypertension, hyperlipidemia, hypothyroidism, and CAD who was admitted to swing bed from [facility] on 01/24/2018. 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 He was admitted to swing bed for wound care and assistance with ADLs. He currently has wound vac to his right foot with suction at 125. This was followed by [facility] throughout hospital stay. He does have extensive medical history. He underwent mitral valve clipping for severe MR on 12/24/2017. He also had recent angiogram revealing 80% stenosis of his left ICA. This was unable to be stented due to calcification and tortuosity of the vessel. He had been on both Plavix and Coumadin for the above issues. We did initially struggle with bleeding from both his right foot and his right thigh skin graft site. Dr. Manuel (plastic surgeon at [facility]) was consulted to discuss bleeding. He recommended we just continue to reinforce dressing and change wound vac as needed. Discussed with Dr. Kingston ( cardiology at [facility]) bleeding issues and blood thinners. He advised us to stop Plavix and continue Coumadin. Patient's hemoglobin did drop to 6.8. He was transfused 2 units PRBCs and hemoglobin remained stable. Antibody screen was negative, however patient reportedly had E+ antibodies from previous type and cross. THis was not knowledge to us until after transfusion. We did recheck type and screen and it was once again negative for antibodies. Patient VS and hemoglobin were monitored throughout stay and patient was stable. Hgb stable at 9.2 at time of discharge. Patient otherwise had a rather uneventful hospital stay. He was followed by PT throughout stay. At time of discharge patient was cleared from physical therapy as he was meeting all goals. Patient was continued on Coumadin and INR remained therapeutic throughout stay. He will be discharged home on 1.5 mg daily of Coumadin and all other home medications. He will f/u with Dr. Gavin next week for recheck and labs. He will follow up per Plastics and Cargiology recommendations from [facility]. - Discharge Data Discharge Date: 02/07/18 Discharge Disposition: Home, Self-Care 01 Condition: Good - Discharge Diagnosis/Problem(s) (1) Malignant melanoma of foot SNOMED Code(s): 690920677 ICD Code: C43.70 - MALIGNANT MELANOMA OF UNSPECIFIED LOWER LIMB, INCLUDING HIP Status: Acute Qualifiers: Laterality: right Qualified Code(s): C43.71 - Malignant melanoma of right lower limb, including hip (2) Status post skin graft SNOMED Code(s): 640955466, 145310738, 778563702 ICD Code: Z94.5 - SKIN TRANSPLANT STATUS Status: Acute (3) Status post implantation of mitral valve leaflet clip SNOMED Code(s): 78842519508642 ICD Code: Z98.890 - OTHER SPECIFIED POSTPROCEDURAL STATES; Z95.818 - PRESENCE OF OTHER CARDIAC IMPLANTS AND GRAFTS Status: Acute (4) Carotid stenosis, left SNOMED Code(s): 500119876643823 ICD Code: I65.22 - OCCLUSION AND STENOSIS OF LEFT CAROTID ARTERY Status: Chronic (5) Marfan's disease SNOMED Code(s): 39988074 ICD Code: Q87.40 - MARFAN'S SYNDROME, UNSPECIFIED Status: Chronic (6) Hypertension SNOMED Code(s): 51430035 ICD Code: I10 - ESSENTIAL (PRIMARY) HYPERTENSION Status: Chronic Qualifiers: Hypertension type: essential hypertension Qualified Code(s): I10 - Essential (primary) hypertension (7) Hyperlipidemia SNOMED Code(s): 52807016 ICD Code: E78.5 - HYPERLIPIDEMIA, UNSPECIFIED Status: Chronic Qualifiers: Hyperlipidemia type: unspecified Qualified Code(s): E78.5 - Hyperlipidemia , unspecified (8) Hypothyroidism SNOMED Code(s): 16205110 ICD Code: E03.9 - HYPOTHYROIDISM, UNSPECIFIED Status: Chronic Qualifiers: Hypothyroidism type: unspecified Qualified Code(s): E03.9 - Hypothyroidism , unspecified (9) Atrial fibrillation SNOMED Code(s): 87045661 ICD Code: I48.91 - UNSPECIFIED ATRIAL FIBRILLATION Status: Chronic Priority: Medium Qualifiers: Atrial fibrillation type: chronic Qualified Code(s): I48.2 - Chronic atrial fibrillation (10) Status post right foot surgery SNOMED Code(s): 652205856, 38938659, 558107802 ICD Code: Z98.890 - OTHER SPECIFIED POSTPROCEDURAL STATES Status: Acute (11) Anemia SNOMED Code(s): 377508330 ICD Code: D64.9 - ANEMIA, UNSPECIFIED Status: Acute Qualifiers: Anemia type: unspecified type Qualified Code(s): D64.9 - Anemia, unspecified - Patient Summary/Data Consults: Consultations 01/24/18 16:18 PT Evaluation and Treatment [CONS] Routine - Patient Instructions Diet: Usual Diet as Tolerated Activity: As Tolerated Notify Provider of: Fever, Increased Pain, Swelling and Redness, Drainage - Discharge Plan Prescriptions/Med Rec: Warfarin [Coumadin] 1.5 mg PO DAILY 30 Days #45 tablet Home Medications: Home Meds Acetaminophen [Tylenol Extra Strength] 1,000 mg PO Q6H PRN 04/26/15 [History] Levothyroxine Sodium [Synthroid] 100 mcg PO DAILY 04/26/15 [History] Metoprolol Succinate [Toprol XL 50mg] 50 mg PO DAILY 04/26/15 [History] Mirtazapine [Remeron] 15 mg PO BEDTIME 04/26/15 [History] atorvaSTATin Calcium [Atorvastatin Calcium] 40 mg PO DAILY 04/26/15 [History] Sertraline HCl 50 mg PO DAILY 03/04/17 [History] Pantoprazole Sodium [Protonix] 40 mg PO DAILY 03/07/17 [History] Clopidogrel [Plavix] 75 mg PO DAILY 01/24/18 [History] Ferrous Sulfate 325 mg PO DAILY 01/24/18 [History] Folic Acid 1 mg PO DAILY 01/24/18 [History] Latanoprost [Xalatan 0.005% Ophth Soln] 1 drop EYELF BEDTIME 01/24/18 [History] Lisinopril [Prinivil] 10 mg PO DAILY 01/24/18 [History] oxyCODONE HCl/Acetaminophen [Oxycodone-Acetaminophen 5-325] 1 - 2 tab PO Q4H PRN 01/24/18 [History] Warfarin [Coumadin] 1.5 mg PO DAILY 30 Days #45 tablet 02/07/18 [Rx] Referrals: Matthew Gavin MD [Primary Care Provider] - - General Info Date of Service: 02/07/18 Subjective Update: Patient reports he is feeling well. He is anxious to discharge home. He has met all PT goals and is cleared by PT. Wound vac in place. Dressing CDI. Functional Status: Reports: Pain Controlled, Tolerating Diet, Ambulating, Urinating - Review of Systems General: Reports: No Symptoms Pulmonary: Reports: No Symptoms Cardiovascular: Reports: No Symptoms Gastrointestinal: Reports: No Symptoms Genitourinary: Reports: No Symptoms Musculoskeletal: Reports: No Symptoms Skin: Reports: Other (wound to RLE, wound vac in place) Neurological: Reports: No Symptoms Psychiatric: Reports: No Symptoms - Patient Data Vitals - Most Recent: Last Vital Signs Temp 97.7 F 02/07/18 07:37 Pulse 70 02/07/18 07:37 Resp 16 02/07/18 07:37 BP 111/54 L 02/07/18 07:37 Pulse Ox 96 02/07/18 07:37 Weight - Most Recent: 182 lb 4.8 oz Lab Results - Last 24 hrs: Laboratory Results - last 24 hr 02/07/18 Range/Units 07:05 PT 25.0 H (9.7-12.3) SEC INR 2.58 H (0.92-1.18) Med Orders - Current: Current Medications Acetaminophen (Tylenol Extra Strength) 1,000 mg PO Q6H PRN PRN Reason: Pain Last Admin: 02/06/18 11:38 Dose: 1,000 mg Docusate Sodium (Colace) 100 mg PO DAILY PRN PRN Reason: Constipation Last Admin: 02/03/18 20:22 Dose: 100 mg Ferrous Sulfate (Ferrous Sulfate) 324 mg PO DAILY [facility] Last Admin: 02/07/18 07:48 Dose: 324 mg Folic Acid (Folic Acid) 1 mg PO DAILY [facility] Last Admin: 02/07/18 07:48 Dose: 1 mg Latanoprost (Xalatan 0.005% Ophth Soln) 0 ml EYELF BEDTIME [facility] Last Admin: 02/06/18 19:23 Dose: 1 drop Levothyroxine Sodium (Synthroid) 100 mcg PO DAILY@0700 [facility] Last Admin: 02/07/18 06:15 Dose: 100 mcg Lisinopril (Prinivil) 10 mg PO DAILY [facility] Last Admin: 02/07/18 07:48 Dose: 10 mg Mirtazapine (Remeron) 15 mg PO BEDTIME [facility] Last Admin: 02/06/18 19:22 Dose: 15 mg Oxycodone/Acetaminophen (Percocet 325-5 Mg) 1 - 2 tab PO Q4H PRN PRN Reason: Pain Last Admin: 02/06/18 19:25 Dose: 1 tab Pantoprazole Sodium (Protonix) 40 mg PO ACBREAKFAST [facility] Last Admin: 02/07/18 06:16 Dose: 40 mg Sertraline HCl (Zoloft) 50 mg PO DAILY [facility] Last Admin: 02/07/18 07:48 Dose: 50 mg Simvastatin (Zocor) 20 mg PO DAILY [facility] Last Admin: 02/07/18 07:48 Dose: 20 mg Sodium Chloride (Saline Flush) 10 ml FLUSH ASDIRECTED PRN PRN Reason: Keep Vein Open Last Admin: 02/02/18 08:46 Dose: 10 ml Warfarin Sodium (Coumadin) 1.5 mg PO DAILY@1200 [facility] Last Admin: 02/06/18 11:37 Dose: 1.5 mg Discontinued Medications Acetaminophen (Tylenol) 650 mg PO Q4H PRN PRN Reason: Pain (Mild 1-3)/fever Sodium Chloride (Normal Saline) 1,000 mls @ 75 mls/hr IV ONETIME ONE Stop: 01/25/18 06:28 Last Admin: 01/24/18 17:23 Dose: 75 mls/hr Lactated Ringer's (Ringers, Lactated) 1,000 mls @ 500 mls/hr IV ONETIME ONE Stop: 01/25/18 02:53 Last Admin: 01/25/18 00:55 Dose: 500 mls/hr Sodium Chloride (Normal Saline) Confirm Administered Dose 250 mls @ as directed .ROUTE .STK-MED ONE Stop: 01/26/18 09:26 Last Admin: 01/26/18 09:38 Dose: 75 mls/hr Warfarin Sodium (Coumadin) 2.5 mg PO ONETIME ONE Stop: 01/26/18 12:01 Last Admin: 01/26/18 12:05 Dose: 2.5 mg Warfarin Sodium (Coumadin) 5 mg PO DAILY [facility] Last Admin: 01/29/18 08:08 Dose: Not Given Warfarin Sodium (Coumadin) 5 mg PO DAILY@1200 [facility] Last Admin: 01/30/18 12:39 Dose: 5 mg Warfarin Sodium (Coumadin) 2 mg PO DAILY@1200 [facility] Warfarin Sodium (Coumadin) 2 mg PO DAILY@1200 [facility] Last Admin: 02/05/18 11:42 Dose: 2 mg - Exam Quality Assessment: Reports: DVT Prophylaxis General: Reports: Alert, Oriented, No Acute Distress Neck: Reports: Supple Lungs: Reports: Clear to Auscultation, Normal Respiratory Effort Cardiovascular: Reports: Regular Rate, Regular Rhythm GI/Abdominal Exam: Normal Bowel Sounds, Soft, Non-Tender, No Organomegaly, No Distention, No Abnormal Bruit, No Mass, Pelvis Stable Extremities: Other (wound vac in place to RLE, graft site covered, CDI) Wound/Incisions: Reports: Healing Well Neurological: Reports: No New Focal Deficit Psy/Mental Status: Reports: Alert, Normal Affect, Normal Mood *Q Meaningful Use (DIS) - VTE *Q VTE Pharmacological Contraindications *Q: Risk of Bleeding VTE Anticoagulation Contraindications: Alternative [place] Request PT
== END 2018-02-07 17:00 | disposition home or self-care (01) | DRG 949 ==
LOC: UNDOADMIN 14:13 → CC.MS 14:13 → UNDOADMIN 16:18 → CC.MS 16:18
PROVIDERS: ADMIT General Practice; ATTEND General Practice
PROC: 30233N1 Transfusion of Nonautologous Red Blood Cells into Peripheral Vein, Percutaneous Approach (ICD-10-PCS; principal; 2018-01-26)
DX: Z48.817 Encounter for surgical aftercare following surgery on the skin and subcutaneous tissue (principal); Q87.40 Marfan syndrome, unspecified; Z94.5 Skin transplant status; D64.9 Anemia, unspecified; I10 Essential (primary) hypertension; E03.9 Hypothyroidism, unspecified; I25.10 Atherosclerotic heart disease of native coronary artery without angina pectoris; C43.71 Malignant melanoma of right lower limb, including hip; I77.1 Stricture of artery; I65.22 Occlusion and stenosis of left carotid artery; I48.2 Chronic atrial fibrillation; H40.9 Unspecified glaucoma; H54.7 Unspecified visual loss; K21.9 Gastro-esophageal reflux disease without esophagitis; F32.9 Major depressive disorder, single episode, unspecified; R53.1 Weakness; R06.00 Dyspnea, unspecified; G89.18 Other acute postprocedural pain; Z66 Do not resuscitate; Z79.01 Long term (current) use of anticoagulants; Z79.02 Long term (current) use of antithrombotics/antiplatelets; Z95.818 Presence of other cardiac implants and grafts; Z79.899 Other long term (current) drug therapy; Z90.49 Acquired absence of other specified parts of digestive tract
CPT/HCPCS: 36415; 36430; 80048; 80053; 85025; 85610; 86850; 86900; 86901; 86920; 86922; 97110-GP; 97116-GP; 97161-GP; 97530-GP; 97542-GP; 97597-GP; 97605-GP; A9270-GY; J7030; J7050; J7120; P9016

== ENCOUNTER 2018-06-25 15:08 | Inpatient (IN) | payer MEDICARE, BC ==
[2018-06-25 15:34] LABS: CHLORIDE,CL 103 mEq/L (98-106); SODIUM,NA 139 mEq/L (136-145)
[2018-06-25] MEDS ORDERED: Lactated Ringers 1,000 ML IV SCH (17:00)
[2018-06-25] MEDS ORDERED: Acetaminophen 500 MG Tab PO PRN (17:31)
[2018-06-25] MEDS ORDERED: Acetaminophen/oxyCODONE 325-5 MG Tab PO PRN (17:31)
[2018-06-25] MEDS: cefTRIAXone 1 GM Vial IVPUSH SCH (17:47)
[2018-06-25] MEDS: Latanoprost 0.005% Ophth Soln 2.5 ML Bottle EYELF SCH (19:37)
[2018-06-25] MEDS: Mirtazapine 15 MG Tab PO SCH (19:38)
[2018-06-25] MEDS: Sodium Chloride 0.9% 1,000 ML IV SCH (23:50)
[2018-06-26] MEDS: Sertraline 25 MG Tab PO SCH (07:38)
[2018-06-26] MEDS: Levothyroxine 100 MCG Tab PO SCH (07:38)
[2018-06-26] MEDS: Ferrous Sulfate 324 MG Tab.EC PO SCH (07:38)
[2018-06-26] MEDS: Clopidogrel 75 MG Tab PO SCH (07:39)
[2018-06-26] MEDS: Metoprolol Succinate 25 MG Tab.ER PO SCH (07:39)
[2018-06-26] MEDS: Pantoprazole 40 MG Tab.CR PO SCH (07:39)
[2018-06-26] MEDS: Folic Acid 1 MG Tab PO SCH (07:39)
[2018-06-26] MEDS: Acetaminophen 325 MG Tab PO PRN ×2 (07:46→17:01)
--- NOTE | 2018-06-26 09:17 | PCM.PN ---
- General Info Date of Service: 06/26/18 Admission Dx/Problem (Free Text): UTI R/O Sepsis Neck pain Functional Status: Reports: Pain Controlled, Tolerating Diet, Ambulating - Review of Systems General: Reports: Fever, Weakness, Fatigue, Malaise HEENT: Reports: No Symptoms Pulmonary: Denies: Shortness of Breath, Cough Cardiovascular: Denies: Chest Pain, Edema, Lightheadedness Gastrointestinal: Denies: Abdominal Pain, Nausea, Vomiting Genitourinary: Reports: Frequency, Burning, Flank Pain Musculoskeletal: Reports: Neck Pain Skin: Reports: No Symptoms Neurological: Reports: No Symptoms - Patient Data Vitals - Most Recent: Last Vital Signs Temp 100 F 06/26/18 08:00 Pulse 76 06/26/18 08:00 Resp 18 06/26/18 08:00 BP 134/56 L 06/26/18 08:00 Pulse Ox 98 06/26/18 08:00 Weight - Most Recent: 185 lb Lab Results Last 24 Hours: Laboratory Results - last 24 hr 06/25/18 06/25/18 06/25/18 Range/Units 15:13 15:13 15:13 WBC 16.6 H (5.0-10.0) 10^3/uL RBC 3.42 L (4.50-6.00) 10^6/uL Hgb 9.2 L (14.0-18.0) g/dL Hct 30.0 L (40.0-54.0) % MCV 87.7 (82.0-94.0) fL MCH 26.9 L (27.0-32.0) pg MCHC 30.7 L (33.0-38.0) g/dL RDW Coeff of Deborah 15.5 H (11.0-15.0) % Plt Count 158 (150-400) 10^3/uL Add Manual Diff Yes Neutrophils % (Manual) 81 (35-85) % Band Neutrophils % 8 H (0-5) % Lymphocytes % (Manual) 3 L (21-55) % Monocytes % (Manual) 8 (2-12) % Eosinophils % (Manual) (0-5) % Absolute Neutrophils 14.77 H (1.80-7.00) 10^3/uL Lymphocytes # (Manual) 0.50 L (1.00-4.80) 10^3/uL Monocytes # (Manual) 1.33 H (0.00-0.80) 10^3/uL Toxic Granulation 1+ slight H (NOT SEEN) PT (9.7-12.3) SEC INR (0.92-1.18) Sodium 139 (136-145) mEq/L Potassium 4.7 (3.5-5.0) mEq/L Chloride 103 (98-106) mEq/L Carbon Dioxide 25 (21-32) mmol/L BUN 45 H (7-18) mg/dL Creatinine 2.9 H* D (0.7-1.3) mg/dL Est Cr Clr Drug Dosing TNP Estimated GFR (MDRD) 21 L (>=60) mL/min Glucose 115 H (75-99) mg/dL Calcium 8.7 (8.4-10.1) mg/dL C-Reactive Protein 25.3 H (0.2-0.8) mg/dL Urine Color Yellow (YELLOW) Urine Appearance Clear (CLEAR) Urine pH 5.0 (4.5-8.0) Ur Specific [place] 1.025 H (1.003-1.020) Urine Protein 30 H (NEGATIVE) mg/dL Urine Glucose (UA) Negative (NEGATIVE) mg/dL Urine Ketones Negative (NEGATIVE) mg/dL Urine Occult Blood Large H (NEGATIVE) Urine Nitrite Negative (NEGATIVE) Urine Bilirubin Negative (NEGATIVE) Urine Urobilinogen 0.2 (0.2-1.0) EU/dL Ur Leukocyte Esterase Large H (NEGATIVE) Urine RBC 30-40 H (0-5) /HPF Urine WBC 40-50 H (0-5) /HPF Ur Squamous Epith Cells Occasional H (NOT SEEN) /HPF Urine Bacteria Many H (NOT SEEN) /HPF Urine Mucus Occasional H (NOT SEEN) /HPF 06/25/18 06/26/18 06/26/18 Range/Units 15:13 08:03 08:03 WBC 8.8 (5.0-10.0) 10^3/uL RBC 3.22 L (4.50-6.00) 10^6/uL Hgb 8.9 L (14.0-18.0) g/dL Hct 28.5 L (40.0-54.0) % MCV 88.5 (82.0-94.0) fL MCH 27.6 (27.0-32.0) pg MCHC 31.2 L (33.0-38.0) g/dL RDW Coeff of Deborah 15.3 H (11.0-15.0) % Plt Count 121 L (150-400) 10^3/uL Add Manual Diff Yes Neutrophils % (Manual) 87 H (35-85) % Band Neutrophils % 2 (0-5) % Lymphocytes % (Manual) 1 L (21-55) % Monocytes % (Manual) 8 (2-12) % Eosinophils % (Manual) 2 (0-5) % Absolute Neutrophils (1.80-7.00) 10^3/uL Lymphocytes # (Manual) (1.00-4.80) 10^3/uL Monocytes # (Manual) (0.00-0.80) 10^3/uL Toxic Granulation (NOT SEEN) PT 15.4 H (9.7-12.3) SEC INR 1.53 H (0.92-1.18) Sodium 141 (136-145) mEq/L Potassium 4.7 (3.5-5.0) mEq/L Chloride 107 H (98-106) mEq/L Carbon Dioxide 25 (21-32) mmol/L BUN 44 H (7-18) mg/dL Creatinine 2.5 H (0.7-1.3) mg/dL Est Cr Clr Drug Dosing 27.86 Estimated GFR (MDRD) 25 L (>=60) mL/min Glucose 104 H (75-99) mg/dL Calcium 8.4 (8.4-10.1) mg/dL C-Reactive Protein 26.8 H (0.2-0.8) mg/dL Urine Color (YELLOW) Urine Appearance (CLEAR) Urine pH (4.5-8.0) Ur Specific [place] (1.003-1.020) Urine Protein (NEGATIVE) mg/dL Urine Glucose (UA) (NEGATIVE) mg/dL Urine Ketones (NEGATIVE) mg/dL Urine Occult Blood (NEGATIVE) Urine Nitrite (NEGATIVE) Urine Bilirubin (NEGATIVE) Urine Urobilinogen (0.2-1.0) EU/dL Ur Leukocyte Esterase (NEGATIVE) Urine RBC (0-5) /HPF Urine WBC (0-5) /HPF Ur Squamous Epith Cells (NOT SEEN) /HPF Urine Bacteria (NOT SEEN) /HPF Urine Mucus (NOT SEEN) /HPF 06/26/18 Range/Units 08:03 WBC (5.0-10.0) 10^3/uL RBC (4.50-6.00) 10^6/uL Hgb (14.0-18.0) g/dL Hct (40.0-54.0) % MCV (82.0-94.0) fL MCH (27.0-32.0) pg MCHC (33.0-38.0) g/dL RDW Coeff of Deborah (11.0-15.0) % Plt Count (150-400) 10^3/uL Add Manual Diff Neutrophils % (Manual) (35-85) % Band Neutrophils % (0-5) % Lymphocytes % (Manual) (21-55) % Monocytes % (Manual) (2-12) % Eosinophils % (Manual) (0-5) % Absolute Neutrophils (1.80-7.00) 10^3/uL Lymphocytes # (Manual) (1.00-4.80) 10^3/uL Monocytes # (Manual) (0.00-0.80) 10^3/uL Toxic Granulation (NOT SEEN) PT 14.9 H (9.7-12.3) SEC INR 1.47 H (0.92-1.18) Sodium (136-145) mEq/L Potassium (3.5-5.0) mEq/L Chloride (98-106) mEq/L Carbon Dioxide (21-32) mmol/L BUN (7-18) mg/dL Creatinine (0.7-1.3) mg/dL Est Cr Clr Drug Dosing Estimated GFR (MDRD) (>=60) mL/min Glucose (75-99) mg/dL Calcium (8.4-10.1) mg/dL C-Reactive Protein (0.2-0.8) mg/dL Urine Color (YELLOW) Urine Appearance (CLEAR) Urine pH (4.5-8.0) Ur Specific [place] (1.003-1.020) Urine Protein (NEGATIVE) mg/dL Urine Glucose (UA) (NEGATIVE) mg/dL Urine Ketones (NEGATIVE) mg/dL Urine Occult Blood (NEGATIVE) Urine Nitrite (NEGATIVE) Urine Bilirubin (NEGATIVE) Urine Urobilinogen (0.2-1.0) EU/dL Ur Leukocyte Esterase (NEGATIVE) Urine RBC (0-5) /HPF Urine WBC (0-5) /HPF Ur Squamous Epith Cells (NOT SEEN) /HPF Urine Bacteria (NOT SEEN) /HPF Urine Mucus (NOT SEEN) /HPF Med Orders - Current: Current Medications Acetaminophen (Tylenol) 650 mg PO Q4H PRN PRN Reason: Pain (Mild 1-3)/fever Last Admin: 06/26/18 07:46 Dose: 650 mg Acetaminophen (Tylenol Extra Strength) 1,000 mg PO Q6H PRN PRN Reason: Pain Last Admin: 06/25/18 19:40 Dose: 1,000 mg Ceftriaxone Sodium (Rocephin) 1 gm IVPUSH Q24H [facility] Last Admin: 06/25/18 17:47 Dose: 1 gm Clopidogrel Bisulfate (Plavix) 75 mg PO DAILY [facility] Last Admin: 06/26/18 07:39 Dose: 75 mg Ferrous Sulfate (Ferrous Sulfate) 324 mg PO DAILY [facility] Last Admin: 06/26/18 07:38 Dose: 324 mg Folic Acid (Folic Acid) 1 mg PO DAILY [facility] Last Admin: 06/26/18 07:39 Dose: 1 mg Sodium Chloride (Normal Saline) 1,000 mls @ 100 mls/hr IV ASDIRECTED [facility] Last Admin: 06/25/18 23:50 Dose: 100 mls/hr Latanoprost (Xalatan 0.005% Oph Soln) 0 ml EYELF BEDTIME [facility] Last Admin: 06/25/18 19:37 Dose: 1 drop Levothyroxine Sodium (Synthroid) 100 mcg PO DAILY [facility] Last Admin: 06/26/18 07:38 Dose: 100 mcg Metoprolol Succinate (Toprol Xl) 50 mg PO DAILY [facility] Last Admin: 06/26/18 07:39 Dose: 50 mg Mirtazapine (Remeron) 15 mg PO BEDTIME [facility] Last Admin: 06/25/18 19:38 Dose: 15 mg Oxycodone/Acetaminophen (Percocet 325-5 Mg) 1 - 2 tab PO Q4H PRN PRN Reason: Pain Pantoprazole Sodium (Protonix) 40 mg PO DAILY [facility] Last Admin: 06/26/18 07:39 Dose: 40 mg Sertraline HCl (Zoloft) 50 mg PO DAILY [facility] Last Admin: 06/26/18 07:38 Dose: 50 mg Warfarin Sodium (Coumadin) 1.5 mg PO DAILY [facility] Last Admin: 06/26/18 07:37 Dose: 1.5 mg Discontinued Medications Lactated Ringer's (Ringers, Lactated) 1,000 mls @ 100 mls/hr IV ASDIRECTED [facility] Stop: 06/26/18 00:00 Last Admin: 06/25/18 17:12 Dose: 100 mls/hr - Exam General: Alert, Oriented HEENT: Mucous Membr. Moist/[place] Neck: Supple Lungs: Clear to Auscultation, Normal Respiratory Effort Cardiovascular: Regular Rate, Regular Rhythm GI/Abdominal Exam: Normal Bowel Sounds, Soft, Non-Tender Extremities: Normal Inspection, No Pedal Edema Skin: Warm, Dry Neurological: No New Focal Deficit - Problem List & Annotations (1) UTI (urinary tract infection) SNOMED Code(s): 64840734 Code(s): N39.0 - URINARY TRACT INFECTION, SITE NOT SPECIFIED Status: Acute Priority: High Current Visit: Yes Qualifiers: Urinary tract infection type: acute cystitis Hematuria presence: without hematuria Qualified Code(s): N30.00 - Acute cystitis without hematuria (2) Weakness SNOMED Code(s): 95998368 Code(s): R53.1 - WEAKNESS Status: Acute Priority: High Current Visit: Yes (3) Sepsis SNOMED Code(s): 42104796 Code(s): A41.9 - SEPSIS, UNSPECIFIED ORGANISM Status: Acute Priority: High Current Visit: Yes - Problem List Review Problem List Initiated/Reviewed/Updated: Yes - Assessment Assessment:: UTI Weakness R/O Sepsis - Plan Plan:: Patient states "feeling mildly better today". Continues to feel weak, back pain and neck pain some better. Continues to run fever, this am 100. No nausea or abdominal pain. Does have some mild burning with urination. WBC improved today to 8.8. Hemoglobin 8.9. Creatinine mildly improved to 2.5. CRP still high at 26.8. Renal ultrasound done this am. Will continue with IV fluids. Rocephin. Await blood cultures and renal report. Inappropriate for discharge.
[2018-06-26] MEDS: Sodium Chloride 0.9% 1,000 ML IV SCH ×2 (09:54→19:48)
[2018-06-26] MEDS: cefTRIAXone 1 GM Vial IVPUSH SCH (17:01)
[2018-06-26] MEDS: Mirtazapine 15 MG Tab PO SCH (19:49)
[2018-06-26] MEDS: Latanoprost 0.005% Ophth Soln 2.5 ML Bottle EYELF SCH (19:49)
[2018-06-26] MEDS ORDERED: Ibuprofen 200 MG Tab PO PRN (20:28)
[2018-06-26] MEDS: Ibuprofen 200 MG Tab PO PRN (21:08)
[2018-06-27] MEDS: Sodium Chloride 0.9% 1,000 ML IV SCH (06:11)
[2018-06-27] MEDS: Metoprolol Succinate 25 MG Tab.ER PO SCH (08:14)
[2018-06-27] MEDS: Levothyroxine 100 MCG Tab PO SCH (08:14)
[2018-06-27] MEDS: Clopidogrel 75 MG Tab PO SCH (08:14)
[2018-06-27] MEDS: Sertraline 25 MG Tab PO SCH (08:14)
[2018-06-27] MEDS: Pantoprazole 40 MG Tab.CR PO SCH (08:15)
[2018-06-27] MEDS: Folic Acid 1 MG Tab PO SCH (08:15)
[2018-06-27] MEDS: Ferrous Sulfate 324 MG Tab.EC PO SCH (08:15)
--- NOTE | 2018-06-27 08:41 | PCM.PN ---
- General Info Date of Service: 06/27/18 Admission Dx/Problem (Free Text): UTI R/O Sepsis Neck pain Functional Status: Reports: Pain Controlled, Tolerating Diet, Ambulating - Review of Systems General: Reports: Weakness, Fatigue, Malaise. Denies: Fever HEENT: Reports: No Symptoms Pulmonary: Denies: Shortness of Breath, Cough Cardiovascular: Denies: Chest Pain, Edema, Lightheadedness Gastrointestinal: Denies: Abdominal Pain, Nausea, Vomiting Genitourinary: Reports: Frequency Musculoskeletal: Reports: Back Pain Skin: Reports: No Symptoms Neurological: Reports: Weakness. Denies: Dizziness, Headache - Patient Data Vitals - Most Recent: Last Vital Signs Temp 96.3 F 06/27/18 04:00 Pulse 56 L 06/27/18 08:14 Resp 20 06/27/18 04:00 BP 127/60 06/27/18 08:14 Pulse Ox 93 L 06/27/18 04:00 Weight - Most Recent: 185 lb I&O - Last 24 Hours: Intake & Output 06/26/18 06/27/18 06/27/18 22:59 06:59 14:59 Intake Total 1390 1000 Balance 1390 1000 Lab Results Last 24 Hours: Laboratory Results - last 24 hr 06/26/18 06/27/18 06/27/18 Range/Units 08:03 06:45 06:45 WBC 2.9 L (5.0-10.0) 10^3/uL RBC 3.08 L (4.50-6.00) 10^6/uL Hgb 8.5 L (14.0-18.0) g/dL Hct 27.5 L (40.0-54.0) % MCV 89.3 (82.0-94.0) fL MCH 27.6 (27.0-32.0) pg MCHC 30.9 L (33.0-38.0) g/dL RDW Coeff of Deborah 15.2 H (11.0-15.0) % Plt Count 118 L (150-400) 10^3/uL Neut % (Auto) 77.0 (35-85) % Lymph % (Auto) 7.2 L (10-55) % [place] % (Auto) 12.4 (0-16) % Eos % (Auto) 3.1 (0-5) % Baso % (Auto) 0.3 (0-3) % Neut # (Auto) 2.24 (1.80-7.00) 10^3/uL Lymph # (Auto) 0.21 L (1.00-4.80) 10^3/uL [place] # (Auto) 0.36 (0.00-0.80) 10^3/uL Eos # (Auto) 0.09 (0.00-0.45) 10^3/uL Baso # (Auto) 0.01 10^3/uL Neutrophils % (Manual) 87 H (35-85) % Band Neutrophils % 2 (0-5) % Lymphocytes % (Manual) 1 L (21-55) % Monocytes % (Manual) 8 (2-12) % Eosinophils % (Manual) 2 (0-5) % PT (9.7-12.3) SEC INR (0.92-1.18) Sodium 141 (136-145) mEq/L Potassium 5.0 (3.5-5.0) mEq/L Chloride 109 H (98-106) mEq/L Carbon Dioxide 25 (21-32) mmol/L BUN 39 H (7-18) mg/dL Creatinine 2.3 H (0.7-1.3) mg/dL Est Cr Clr Drug Dosing 30.28 mL/min Estimated GFR (MDRD) 28 L (>=60) mL/min Glucose 103 H (75-99) mg/dL Calcium 7.8 L (8.4-10.1) mg/dL C-Reactive Protein 17.9 H (0.2-0.8) mg/dL 06/27/18 Range/Units 06:45 WBC (5.0-10.0) 10^3/uL RBC (4.50-6.00) 10^6/uL Hgb (14.0-18.0) g/dL Hct (40.0-54.0) % MCV (82.0-94.0) fL MCH (27.0-32.0) pg MCHC (33.0-38.0) g/dL RDW Coeff of Deborah (11.0-15.0) % Plt Count (150-400) 10^3/uL Neut % (Auto) (35-85) % Lymph % (Auto) (10-55) % [place] % (Auto) (0-16) % Eos % (Auto) (0-5) % Baso % (Auto) (0-3) % Neut # (Auto) (1.80-7.00) 10^3/uL Lymph # (Auto) (1.00-4.80) 10^3/uL [place] # (Auto) (0.00-0.80) 10^3/uL Eos # (Auto) (0.00-0.45) 10^3/uL Baso # (Auto) 10^3/uL Neutrophils % (Manual) (35-85) % Band Neutrophils % (0-5) % Lymphocytes % (Manual) (21-55) % Monocytes % (Manual) (2-12) % Eosinophils % (Manual) (0-5) % PT 14.5 H (9.7-12.3) SEC INR 1.43 H (0.92-1.18) Sodium (136-145) mEq/L Potassium (3.5-5.0) mEq/L Chloride (98-106) mEq/L Carbon Dioxide (21-32) mmol/L BUN (7-18) mg/dL Creatinine (0.7-1.3) mg/dL Est Cr Clr Drug Dosing mL/min Estimated GFR (MDRD) (>=60) mL/min Glucose (75-99) mg/dL Calcium (8.4-10.1) mg/dL C-Reactive Protein (0.2-0.8) mg/dL [place] Results Last 24 Hours: Microbiology 06/25/18 16:50 Aerobic Blood Culture - Preliminary Blood - Venous - Lab Draw NO GROWTH AFTER 1 DAY Anaerobic Blood Culture - Preliminary Gram Negative Rods 06/25/18 16:45 Aerobic Blood Culture - Preliminary Blood - Venous NO GROWTH AFTER 1 DAY Anaerobic Blood Culture - Preliminary NO GROWTH AFTER 1 DAY 06/25/18 15:44 Urine Culture - Preliminary Urine, Voided Gram Negative Rods Med Orders - Current: Current Medications Acetaminophen (Tylenol) 650 mg PO Q4H PRN PRN Reason: Pain (Mild 1-3)/fever Last Admin: 06/26/18 17:01 Dose: 650 mg Acetaminophen (Tylenol Extra Strength) 1,000 mg PO Q6H PRN PRN Reason: Pain Last Admin: 10/17/18 19:40 Dose: 1,000 mg Ceftriaxone Sodium (Rocephin) 1 gm IVPUSH Q24H [facility] Last Admin: 06/26/18 17:01 Dose: 1 gm Clopidogrel Bisulfate (Plavix) 75 mg PO DAILY [facility] Last Admin: 06/27/18 08:14 Dose: 75 mg Ferrous Sulfate (Ferrous Sulfate) 324 mg PO DAILY [facility] Last Admin: 06/27/18 08:15 Dose: 324 mg Folic Acid (Folic Acid) 1 mg PO DAILY [facility] Last Admin: 06/27/18 08:15 Dose: 1 mg Sodium Chloride (Normal Saline) 1,000 mls @ 100 mls/hr IV ASDIRECTED [facility] Last Admin: 06/27/18 06:11 Dose: 100 mls/hr Ibuprofen (Motrin) 400 mg PO Q6H PRN PRN Reason: Fever Last Admin: 06/26/18 21:08 Dose: 400 mg Latanoprost (Xalatan 0.005% Ophth Soln) 0 ml EYELF BEDTIME [facility] Last Admin: 06/26/18 19:49 Dose: 1 drop Levothyroxine Sodium (Synthroid) 100 mcg PO DAILY [facility] Last Admin: 06/27/18 08:14 Dose: 100 mcg Metoprolol Succinate (Toprol Xl) 50 mg PO DAILY [facility] Last Admin: 06/27/18 08:14 Dose: 50 mg Mirtazapine (Remeron) 15 mg PO BEDTIME [facility] Last Admin: 06/26/18 19:49 Dose: 15 mg Oxycodone/Acetaminophen (Percocet 325-5 Mg) 1 - 2 tab PO Q4H PRN PRN Reason: Pain Pantoprazole Sodium (Protonix) 40 mg PO DAILY [facility] Last Admin: 06/27/18 08:15 Dose: 40 mg Sertraline HCl (Zoloft) 50 mg PO DAILY [facility] Last Admin: 06/27/18 08:14 Dose: 50 mg Warfarin Sodium (Coumadin) 2 mg PO DAILY [facility] Discontinued Medications Lactated Ringer's (Ringers, Lactated) 1,000 mls @ 100 mls/hr IV ASDIRECTED [facility] Stop: 06/26/18 00:00 Last Admin: 06/25/18 17:12 Dose: 100 mls/hr Ibuprofen (Motrin) 200 mg PO Q6H PRN PRN Reason: Fever Warfarin Sodium (Coumadin) 1.5 mg PO DAILY [facility] Last Admin: 06/26/18 07:37 Dose: 1.5 mg - Exam General: Alert, Oriented HEENT: Mucous Membr. Moist/[place] Neck: Supple Lungs: Clear to Auscultation, Normal Respiratory Effort Cardiovascular: Irregular Rhythm GI/Abdominal Exam: Normal Bowel Sounds, Soft, Non-Tender Extremities: Normal Inspection, No Pedal Edema Skin: Warm, Dry Neurological: No New Focal Deficit Psy/Mental Status: Other (flat affect) - Problem List & Annotations (1) UTI (urinary tract infection) SNOMED Code(s): 90277894 Code(s): N39.0 - URINARY TRACT INFECTION, SITE NOT SPECIFIED Status: Acute Priority: High Current Visit: Yes Qualifiers: Urinary tract infection type: acute cystitis Hematuria presence: without hematuria Qualified Code(s): N30.00 - Acute cystitis without hematuria (2) Weakness SNOMED Code(s): 77115431 Code(s): R53.1 - WEAKNESS Status: Acute Priority: High Current Visit: Yes (3) Sepsis SNOMED Code(s): 30873388 Code(s): A41.9 - SEPSIS, UNSPECIFIED ORGANISM Status: Acute Priority: High Current Visit: Yes - Problem List Review Problem List Initiated/Reviewed/Updated: Yes - My Orders Last 24 Hours: My Active Orders 06/26/18 20:39 Ibuprofen [Motrin] 400 mg PO Q6H PRN 06/27/18 12:00 Warfarin [Coumadin] 2 mg PO DAILY - Assessment Assessment:: UTI Weakness R/O Sepsis - Plan Plan:: Patient states "feeling mildly better today". Continues to feel weak, back pain and neck pain some better. Continues to run fever, this am 100. No nausea or abdominal pain. Does have some mild burning with urination. WBC improved today to 8.8. Hemoglobin 8.9. Creatinine mildly improved to 2.5. CRP still high at 26.8. Renal ultrasound done this am. Will continue with IV fluids. Rocephin. Await blood cultures and renal report. Inappropriate for discharge. 06-27-2018 Patient admits to feeling better. Appetite has been good. Ambulating short distances with walker but remains weak. Afebrile this am. Denies abdominal pain. WBC noted to drop significantly to 2.9, likely due to sepsis. Platelets normal. Hemoglobin stable at 8.5. INR still low at 1.43. CRP improved to 17.9. Preliminary urine and blood culture 1/ positive for gram negative rods. Sensitivities reported later today. Renal ultrasound does show a bladder mass Will continue to treat for sepsis with Rocephin until further ID and sensitivities reported. Increase Coumadin today to 2 mg daily. Reduce IV rate to 50 ml/hr. Continue PT for strengthening. Repeat labs in am. Will need cystoscope in near future.
[2018-06-27] MEDS: Piperacillin/Tazobactam 3.375 GM in Sodium Chloride 0.9% 50 ML IV SCH ×2 (12:11→18:00)
[2018-06-27] MEDS: Warfarin 2 MG Tab PO SCH (12:11)
[2018-06-27] MEDS: Latanoprost 0.005% Ophth Soln 2.5 ML Bottle EYELF SCH (19:29)
[2018-06-27] MEDS: Mirtazapine 15 MG Tab PO SCH (19:29)
[2018-06-28] MEDS: Piperacillin/Tazobactam 3.375 GM in Sodium Chloride 0.9% 50 ML IV SCH ×5 (00:01→23:38)
[2018-06-28] MEDS: Acetaminophen 325 MG Tab PO PRN (00:04)
[2018-06-28] MEDS: Ibuprofen 200 MG Tab PO PRN (00:47)
[2018-06-28] MEDS: Sodium Chloride 0.9% 1,000 ML IV SCH ×2 (00:48→23:39)
[2018-06-28] MEDS: Levothyroxine 100 MCG Tab PO SCH (07:47)
[2018-06-28] MEDS: Folic Acid 1 MG Tab PO SCH (07:47)
[2018-06-28] MEDS: Clopidogrel 75 MG Tab PO SCH (07:47)
[2018-06-28] MEDS: Pantoprazole 40 MG Tab.CR PO SCH (07:47)
[2018-06-28] MEDS: Ferrous Sulfate 324 MG Tab.EC PO SCH (07:47)
[2018-06-28] MEDS: Sertraline 25 MG Tab PO SCH (07:48)
[2018-06-28] MEDS: Metoprolol Succinate 25 MG Tab.ER PO SCH (07:48)
[2018-06-28] MEDS: Warfarin 2 MG Tab PO SCH (07:49)
--- NOTE | 2018-06-28 09:27 | PCM.PN ---
- General Info Date of Service: 06/28/18 Admission Dx/Problem (Free Text): Urosepsis Neck pain Functional Status: Reports: Pain Controlled, Tolerating Diet, Ambulating, Urinating (frequently, small amounts). Denies: New Symptoms - Review of Systems General: Reports: Fever (last evening), Weakness, Fatigue. Denies: Chills Pulmonary: Reports: No Symptoms. Denies: Shortness of Breath, Pleuritic Chest Pain, Cough, Sputum, Wheezing Cardiovascular: Reports: No Symptoms. Denies: Chest Pain, Palpitations, Dyspnea on Exertion, Edema, Lightheadedness Gastrointestinal: Denies: Abdominal Pain, Constipation, Decreased Appetite, Diarrhea, Nausea, Vomiting Genitourinary: Reports: Frequency (small amounts). Denies: Dysuria, Burning, Hematuria Musculoskeletal: Denies: Neck Pain, Back Pain Skin: Reports: No Symptoms Neurological: Reports: Weakness. Denies: Confusion, Headache, Numbness, Tingling Psychiatric: Reports: No Symptoms - Patient Data Vitals - Most Recent: Last Vital Signs Temp 96.8 F 06/28/18 07:44 Pulse 70 06/28/18 07:48 Resp 16 06/28/18 07:44 BP 115/61 06/28/18 07:48 Pulse Ox 97 06/28/18 07:44 Weight - Most Recent: 185 lb I&O - Last 24 Hours: Intake & Output 06/27/18 06/28/18 06/28/18 22:59 06:59 14:59 Intake Total 1000 400 Output Total 200 Balance 1000 200 Lab Results Last 24 Hours: Laboratory Results - last 24 hr 06/28/18 06/28/18 06/28/18 Range/Units 06:00 07:30 07:30 WBC 4.1 L (5.0-10.0) 10^3/uL RBC 3.07 L (4.50-6.00) 10^6/uL Hgb 8.5 L (14.0-18.0) g/dL Hct 27.1 L (40.0-54.0) % MCV 88.3 (82.0-94.0) fL MCH 27.7 (27.0-32.0) pg MCHC 31.4 L (33.0-38.0) g/dL RDW Coeff of Deborah 14.9 (11.0-15.0) % Plt Count 120 L (150-400) 10^3/uL Neut % (Auto) 70.1 (35-85) % Lymph % (Auto) 9.8 L (10-55) % [place] % (Auto) 17.9 H (0-16) % Eos % (Auto) 2.0 (0-5) % Baso % (Auto) 0.2 (0-3) % Neut # (Auto) 2.86 (1.80-7.00) 10^3/uL Lymph # (Auto) 0.40 L (1.00-4.80) 10^3/uL [place] # (Auto) 0.73 (0.00-0.80) 10^3/uL Eos # (Auto) 0.08 (0.00-0.45) 10^3/uL Baso # (Auto) 0.01 10^3/uL PT 20.4 H (9.7-12.3) SEC INR 2.07 H (0.92-1.18) Sodium 140 (136-145) mEq/L Potassium 4.8 (3.5-5.0) mEq/L Chloride 108 H (98-106) mEq/L Carbon Dioxide 25 (21-32) mmol/L BUN 35 H (7-18) mg/dL Creatinine 2.0 H (0.7-1.3) mg/dL Est Cr Clr Drug Dosing 34.82 mL/min Estimated GFR (MDRD) 32 L (>=60) mL/min Glucose 104 H (75-99) mg/dL Calcium 7.7 L (8.4-10.1) mg/dL C-Reactive Protein 9.5 H (0.2-0.8) mg/dL [place] Results Last 24 Hours: Microbiology 06/25/18 16:50 Aerobic Blood Culture - Preliminary Blood - Venous - Lab Draw NO GROWTH AFTER 2 DAYS Anaerobic Blood Culture - Preliminary Gram Negative Rods 06/25/18 16:45 Aerobic Blood Culture - Preliminary Blood - Venous NO GROWTH AFTER 2 DAYS Anaerobic Blood Culture - Preliminary NO GROWTH AFTER 2 DAYS 06/25/18 15:44 Urine Culture - Final Urine, Voided Escherichia Coli Med Orders - Current: Current Medications Acetaminophen (Tylenol) 650 mg PO Q4H PRN PRN Reason: Pain (Mild 1-3)/fever Last Admin: 06/28/18 00:04 Dose: 650 mg Acetaminophen (Tylenol Extra Strength) 1,000 mg PO Q6H PRN PRN Reason: Pain Last Admin: 06/25/18 19:40 Dose: 1,000 mg Clopidogrel Bisulfate (Plavix) 75 mg PO DAILY [facility] Last Admin: 06/28/18 07:47 Dose: 75 mg Ferrous Sulfate (Ferrous Sulfate) 324 mg PO DAILY [facility] Last Admin: 06/28/18 07:47 Dose: 324 mg Folic Acid (Folic Acid) 1 mg PO DAILY [facility] Last Admin: 06/28/18 07:47 Dose: 1 mg Sodium Chloride (Normal Saline) 1,000 mls @ 50 mls/hr IV ASDIRECTED [facility] Last Admin: 06/28/18 00:48 Dose: 100 mls/hr Piperacillin Sod/Tazobactam (Sod 3.375 gm/ Sodium Chloride) 50 mls @ 100 mls/ hr IV Q6H [facility] Last Admin: 06/28/18 05:59 Dose: 100 mls/hr Ibuprofen (Motrin) 400 mg PO Q6H PRN PRN Reason: Fever Last Admin: 06/28/18 00:47 Dose: 400 mg Latanoprost (Xalatan 0.005% Ophth Soln) 0 ml EYELF BEDTIME [facility] Last Admin: 06/27/18 19:29 Dose: 1 drop Levothyroxine Sodium (Synthroid) 100 mcg PO DAILY [facility] Last Admin: 06/28/18 07:47 Dose: 100 mcg Metoprolol Succinate (Toprol Xl) 50 mg PO DAILY [facility] Last Admin: 06/28/18 07:48 Dose: 50 mg Mirtazapine (Remeron) 15 mg PO BEDTIME [facility] Last Admin: 06/27/18 19:29 Dose: 15 mg Oxycodone/Acetaminophen (Percocet 325-5 Mg) 1 - 2 tab PO Q4H PRN PRN Reason: Pain Pantoprazole Sodium (Protonix) 40 mg PO DAILY [facility] Last Admin: 06/28/18 07:47 Dose: 40 mg Sertraline HCl (Zoloft) 50 mg PO DAILY [facility] Last Admin: 06/28/18 07:48 Dose: 50 mg Warfarin Sodium (Coumadin) 2 mg PO DAILY [facility] Last Admin: 06/28/18 07:49 Dose: 2 mg Discontinued Medications Ceftriaxone Sodium (Rocephin) 1 gm IVPUSH Q24H [facility] Last Admin: 06/26/18 17:01 Dose: 1 gm Lactated Ringer's (Ringers, Lactated) 1,000 mls @ 100 mls/hr IV ASDIRECTED [facility] Stop: 06/26/18 00:00 Last Admin: 06/25/18 17:12 Dose: 100 mls/hr Ibuprofen (Motrin) 200 mg PO Q6H PRN PRN Reason: Fever Piperacillin Sod/Tazobactam Sod (Zosyn) Confirm Administered Dose 3.375 gm .ROUTE .STK-MED ONE Stop: 06/27/18 18:01 Last Admin: 06/27/18 18:00 Dose: Not Given Warfarin Sodium (Coumadin) 1.5 mg PO DAILY [facility] Last Admin: 06/26/18 07:37 Dose: 1.5 mg - Exam Quality Assessment: DVT Prophylaxis General: Alert, Oriented, No Acute Distress Neck: Supple Lungs: Clear to Auscultation, Normal Respiratory Effort Cardiovascular: Regular Rate, Regular Rhythm GI/Abdominal Exam: Normal Bowel Sounds, Soft, Non-Tender, No Distention Back Exam: Normal Inspection, Full Range of Motion. No: CVA Tenderness (L), CVA Tenderness (R) Extremities: Normal Inspection, Normal Range of Motion, Non-Tender, No Pedal Edema, Normal Capillary Refill Skin: Warm, Dry, Intact Neurological: No New Focal Deficit Psy/Mental Status: Alert, Normal Affect, Normal Mood - Problem List & Annotations (1) Sepsis SNOMED Code(s): 99334346 Code(s): A41.9 - SEPSIS, UNSPECIFIED ORGANISM Status: Acute Priority: High Current Visit: Yes Qualifiers: Sepsis type: Escherichia coli Qualified Code(s): A41.51 - Sepsis due to Escherichia coli [E. 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 SNOMED Code(s): 169613172, 515881479 Code(s): N32.89 - OTHER SPECIFIED DISORDERS OF BLADDER Status: Chronic Priority: High Current Visit: Yes (4) Acute on chronic renal insufficiency SNOMED Code(s): 069897657 Code(s): N28.9 - DISORDER OF KIDNEY AND URETER, UNSPECIFIED; N18.9 - CHRONIC KIDNEY DISEASE, UNSPECIFIED Status: Acute Priority: High Current Visit: Yes - Problem List Review Problem List Initiated/Reviewed/Updated: Yes - My Orders Last 24 Hours: My Active Orders 06/28/18 09:15 Intake and Output [RC] ASDIRECTED 06/29/18 06:00 BASIC METABOLIC PANEL,BMP [CHEM] DAILY C-REACTIVE PROTEIN [CHEM] DAILY CBC WITH AUTO DIFF [HEME] DAILY INR,PT,PROTHROMBIN TIME [COAG] DAILY 06/30/18 06:00 BASIC METABOLIC PANEL,BMP [CHEM] DAILY C-REACTIVE PROTEIN [CHEM] DAILY CBC WITH AUTO DIFF [HEME] DAILY INR,PT,PROTHROMBIN TIME [COAG] DAILY - Assessment Assessment:: Urosepsis WEakness Left Bladder Mass Acute on chronic renal insufficiency - Plan Plan:: 06-26-2018 Patient states "feeling mildly better today". Continues to feel weak, back pain and neck pain some better. Continues to run fever, this am 100. No nausea or abdominal pain. Does have some mild burning with urination. WBC improved today to 8.8. Hemoglobin 8.9. Creatinine mildly improved to 2.5. CRP still high at 26.8. Renal ultrasound done this am. Will continue with IV fluids. Rocephin. Await blood cultures and renal report. Inappropriate for discharge. 06-27-2018 Patient admits to feeling better. Appetite has been good. Ambulating short distances with walker but remains weak. Afebrile this am. Denies abdominal pain. WBC noted to drop significantly to 2.9, likely due to sepsis. Platelets normal. Hemoglobin stable at 8.5. INR still low at 1.43. CRP improved to 17.9. Preliminary urine and blood culture 1/4 positive for gram negative rods. Sensitivities reported later today. Renal ultrasound does show a bladder mass Will continue to treat for sepsis with Rocephin until further ID and sensitivities reported. Increase Coumadin today to 2 mg daily. Reduce IV rate to 50 ml/hr. Continue PT for strengthening. Repeat labs in am. Will need cystoscope in near future. 06-28-2018 Patient was admitted from the clinic 06-25-2018 for UTI, ? sepsis, acute on chronic renal insufficiency. He does report that he continues to feel weak and poorly. Reports his stinging sensation with urination has resolved. Does report that through the night last night he continued to have urinary frequency where he was only able to urinate small amounts. That is his biggest complaint today. Urine culture did show ecoli with resistance to Rocephin, which patient was initially started on. Patient was switched to Zosyn yesterday. Preliminary blood culture also reveals gram negative rods. Sensitivity reports not back. WBC improved to 4.1. Was 16.6 on admit and decreased to 2.9 yesterday. CRP is trending down. Was 25.3 on admit, down to 9.5 today. Hcg stable at 8.5. INR threapeutic at 2.07. Continue 2 mg Coumadin daily. Creatinine is also trending down. Was 2.9 on admit, 2.0 today. Baseline creatinine 1.6. Renal US revealed a left bladder mass. Patient will need urology consultation with cystoscopy once infection resolves. This was discussed with patient. Recommend monitoring of I & O. Patient voids small amounts at a time 100-200 mL , multiple times throughout day. We will insert Leahy catheter and check PVR to assess for retention. Bladder scanner not available. Continue IV Zosyn and IVF. Repeat labs in am. Recommend patient get up to chair and ambulate. Anticipated discharge 2-3 days.
[2018-06-28] MEDS: Latanoprost 0.005% Ophth Soln 2.5 ML Bottle EYELF SCH (19:05)
[2018-06-28] MEDS: Mirtazapine 15 MG Tab PO SCH (19:05)
[2018-06-29] MEDS: Piperacillin/Tazobactam 3.375 GM in Sodium Chloride 0.9% 50 ML IV SCH ×4 (05:34→23:45)
[2018-06-29] MEDS: Metoprolol Succinate 25 MG Tab.ER PO SCH (07:47)
[2018-06-29] MEDS: Sertraline 25 MG Tab PO SCH (07:47)
[2018-06-29] MEDS: Ferrous Sulfate 324 MG Tab.EC PO SCH (07:47)
[2018-06-29] MEDS: Pantoprazole 40 MG Tab.CR PO SCH (07:48)
[2018-06-29] MEDS: Levothyroxine 100 MCG Tab PO SCH (07:48)
[2018-06-29] MEDS: Clopidogrel 75 MG Tab PO SCH (07:48)
[2018-06-29] MEDS: Warfarin 2 MG Tab PO SCH (07:48)
[2018-06-29] MEDS: Folic Acid 1 MG Tab PO SCH (07:48)
--- NOTE | 2018-06-29 12:58 | PCM.PN ---
- General Info Date of Service: 06/29/18 Admission Dx/Problem (Free Text): Urosepsis Neck pain Subjective Update: Patient reports he is feeling better this morning. Continue to urinate frequency , however continues with IVF. He has no other complaints today, other than he wishes to go home. Functional Status: Reports: Pain Controlled, Tolerating Diet, Ambulating, Urinating. Denies: New Symptoms - Review of Systems General: Reports: No Symptoms. Denies: Fever, Weakness, Fatigue, Chills Pulmonary: Reports: No Symptoms. Denies: Shortness of Breath, Cough, Sputum Cardiovascular: Reports: No Symptoms Gastrointestinal: Reports: No Symptoms. Denies: Abdominal Pain, Constipation, Decreased Appetite, Diarrhea, Nausea, Vomiting Genitourinary: Reports: Frequency. Denies: Dysuria, Burning, Retention Musculoskeletal: Reports: No Symptoms Skin: Reports: No Symptoms Neurological: Reports: No Symptoms Psychiatric: Reports: No Symptoms - Patient Data Vitals - Most Recent: Last Vital Signs Temp 97.5 F 06/29/18 12:00 Pulse 73 06/29/18 12:00 Resp 20 06/29/18 12:00 BP 128/65 06/29/18 12:00 Pulse Ox 98 06/29/18 12:00 Weight - Most Recent: 185 lb I&O - Last 24 Hours: Intake & Output 06/28/18 06/29/18 06/29/18 22:59 06:59 14:59 Intake Total 700 250 400 Output Total 275 1400 500 Balance 425 -1150 -100 Lab Results Last 24 Hours: Laboratory Results - last 24 hr 06/29/18 06/29/18 06/29/18 Range/Units 06:00 07:30 07:30 WBC 5.2 (5.0-10.0) 10^3/uL RBC 3.17 L (4.50-6.00) 10^6/uL Hgb 8.7 L (14.0-18.0) g/dL Hct 27.9 L (40.0-54.0) % MCV 88.0 (82.0-94.0) fL MCH 27.4 (27.0-32.0) pg MCHC 31.2 L (33.0-38.0) g/dL RDW Coeff of Deborah 15.0 (11.0-15.0) % Plt Count 136 L (150-400) 10^3/uL Neut % (Auto) 73.7 (35-85) % Lymph % (Auto) 8.3 L (10-55) % [place] % (Auto) 13.5 (0-16) % Eos % (Auto) 4.1 (0-5) % Baso % (Auto) 0.4 (0-3) % Neut # (Auto) 3.82 (1.80-7.00) 10^3/uL Lymph # (Auto) 0.43 L (1.00-4.80) 10^3/uL [place] # (Auto) 0.70 (0.00-0.80) 10^3/uL Eos # (Auto) 0.21 (0.00-0.45) 10^3/uL Baso # (Auto) 0.02 10^3/uL PT 26.6 H (9.7-12.3) SEC INR 2.76 H (0.92-1.18) Sodium 141 (136-145) mEq/L Potassium 4.7 (3.5-5.0) mEq/L Chloride 109 H (98-106) mEq/L Carbon Dioxide 26 (21-32) mmol/L BUN 27 H (7-18) mg/dL Creatinine 1.9 H (0.7-1.3) mg/dL Est Cr Clr Drug Dosing 36.65 mL/min Estimated GFR (MDRD) 34 L (>=60) mL/min Glucose 96 (75-99) mg/dL Calcium 8.1 L (8.4-10.1) mg/dL C-Reactive Protein 9.3 H (0.2-0.8) mg/dL [place] Results Last 24 Hours: Microbiology 06/25/18 16:50 Aerobic Blood Culture - Preliminary Blood - Venous - Lab Draw NO GROWTH AFTER 3 DAYS Anaerobic Blood Culture - Final Escherichia Coli. 06/25/18 16:45 Aerobic Blood Culture - Preliminary Blood - Venous NO GROWTH AFTER 3 DAYS Anaerobic Blood Culture - Preliminary NO GROWTH AFTER 3 DAYS Med Orders - Current: Current Medications Acetaminophen (Tylenol) 650 mg PO Q4H PRN PRN Reason: Pain (Mild 1-3)/fever Last Admin: 06/28/18 00:04 Dose: 650 mg Acetaminophen (Tylenol Extra Strength) 1,000 mg PO Q6H PRN PRN Reason: Pain Last Admin: 06/25/18 19:40 Dose: 1,000 mg Clopidogrel Bisulfate (Plavix) 75 mg PO DAILY [facility] Last Admin: 06/29/18 07:48 Dose: 75 mg Ferrous Sulfate (Ferrous Sulfate) 324 mg PO DAILY [facility] Last Admin: 06/29/18 07:47 Dose: 324 mg Folic Acid (Folic Acid) 1 mg PO DAILY [facility] Last Admin: 06/29/18 07:48 Dose: 1 mg Sodium Chloride (Normal Saline) 1,000 mls @ 50 mls/hr IV ASDIRECTED [facility] Last Admin: 06/28/18 23:39 Dose: 100 mls/hr Piperacillin Sod/Tazobactam (Sod 3.375 gm/ Sodium Chloride) 50 mls @ 100 mls/ hr IV Q6H [facility] Last Admin: 06/29/18 11:48 Dose: 100 mls/hr Ibuprofen (Motrin) 400 mg PO Q6H PRN PRN Reason: Fever Last Admin: 06/28/18 00:47 Dose: 400 mg Latanoprost (Xalatan 0.005% Ophth Soln) 0 ml EYELF BEDTIME [facility] Last Admin: 06/28/18 19:05 Dose: 1 drop Levothyroxine Sodium (Synthroid) 100 mcg PO DAILY [facility] Last Admin: 06/29/18 07:48 Dose: 100 mcg Metoprolol Succinate (Toprol Xl) 50 mg PO DAILY [facility] Last Admin: 06/29/18 07:47 Dose: 50 mg Mirtazapine (Remeron) 15 mg PO BEDTIME [facility] Last Admin: 06/28/18 19:05 Dose: 15 mg Oxycodone/Acetaminophen (Percocet 325-5 Mg) 1 - 2 tab PO Q4H PRN PRN Reason: Pain Pantoprazole Sodium (Protonix) 40 mg PO DAILY [facility] Last Admin: 06/29/18 07:48 Dose: 40 mg Sertraline HCl (Zoloft) 50 mg PO DAILY [facility] Last Admin: 06/29/18 07:47 Dose: 50 mg Warfarin Sodium (Coumadin) 1.5 mg PO DAILY [facility] Discontinued Medications Ceftriaxone Sodium (Rocephin) 1 gm IVPUSH Q24H [facility] Last Admin: 06/26/18 17:01 Dose: 1 gm Lactated Ringer's (Ringers, Lactated) 1,000 mls @ 100 mls/hr IV ASDIRECTED [facility] Stop: 06/26/18 00:00 Last Admin: 06/25/18 17:12 Dose: 100 mls/hr Ibuprofen (Motrin) 200 mg PO Q6H PRN PRN Reason: Fever Piperacillin Sod/Tazobactam Sod (Zosyn) Confirm Administered Dose 3.375 gm .ROUTE .STK-MED ONE Stop: 06/27/18 18:01 Last Admin: 06/27/18 18:00 Dose: Not Given Warfarin Sodium (Coumadin) 1.5 mg PO DAILY [facility] Last Admin: 06/26/18 07:37 Dose: 1.5 mg Warfarin Sodium (Coumadin) 2 mg PO DAILY [facility] Last Admin: 06/29/18 07:48 Dose: 2 mg - Exam Quality Assessment: DVT Prophylaxis General: Alert, Oriented, No Acute Distress Neck: Supple Lungs: Clear to Auscultation, Normal Respiratory Effort Cardiovascular: Regular Rate, Regular Rhythm GI/Abdominal Exam: Normal Bowel Sounds, Soft, Non-Tender, No Organomegaly, No Distention, No Abnormal Bruit, No Mass, Pelvis Stable Back Exam: Normal Inspection, Full Range of Motion. No: CVA Tenderness (L), CVA Tenderness (R) Extremities: Normal Inspection, Normal Range of Motion, Non-Tender, No Pedal Edema, Normal Capillary Refill Peripheral Pulses: 1+: Dorsalis Pedis (L), Dorsalis Pedis (R) Skin: Warm, Dry, Intact Neurological: No New Focal Deficit Psy/Mental Status: Alert, Normal Affect, Normal Mood - Problem List & Annotations (1) Sepsis SNOMED Code(s): 28477400 Code(s): A41.9 - SEPSIS, UNSPECIFIED ORGANISM Status: Acute Priority: High Current Visit: Yes Qualifiers: Sepsis type: Escherichia coli Qualified Code(s): A41.51 - Sepsis due to Escherichia coli [E. 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 SNOMED Code(s): 512180147, 703083520 Code(s): N32.89 - OTHER SPECIFIED DISORDERS OF BLADDER Status: Chronic Priority: High Current Visit: Yes (4) Acute on chronic renal insufficiency SNOMED Code(s): 489732245 Code(s): N28.9 - DISORDER OF KIDNEY AND URETER, UNSPECIFIED; N18.9 - CHRONIC KIDNEY DISEASE, UNSPECIFIED Status: Chronic Priority: High Current Visit: Yes - Problem List Review Problem List Initiated/Reviewed/Updated: Yes - My Orders Last 24 Hours: My Active Orders 06/28/18 14:29 Post Void Residual [OM.PC] ONETIME 06/30/18 06:00 BASIC METABOLIC PANEL,BMP [CHEM] DAILY C-REACTIVE PROTEIN [CHEM] DAILY CBC WITH AUTO DIFF [HEME] DAILY INR,PT,PROTHROMBIN TIME [COAG] DAILY 06/30/18 12:00 Warfarin [Coumadin] 1.5 mg PO DAILY - Assessment Assessment:: Urosepsis WEakness Left Bladder Mass Acute on chronic renal insufficiency - Plan Plan:: 06-26-2018 Patient states "feeling mildly better today". Continues to feel weak, back pain and neck pain some better. Continues to run fever, this am 100. No nausea or abdominal pain. Does have some mild burning with urination. WBC improved today to 8.8. Hemoglobin 8.9. Creatinine mildly improved to 2.5. CRP still high at 26.8. Renal ultrasound done this am. Will continue with IV fluids. Rocephin. Await blood cultures and renal report. Inappropriate for discharge. 06-27-2018 Patient admits to feeling better. Appetite has been good. Ambulating short distances with walker but remains weak. Afebrile this am. Denies abdominal pain. WBC noted to drop significantly to 2.9, likely due to sepsis. Platelets normal. Hemoglobin stable at 8.5. INR still low at 1.43. CRP improved to 17.9. Preliminary urine and blood culture 1/4 positive for gram negative rods. Sensitivities reported later today. Renal ultrasound does show a bladder mass Will continue to treat for sepsis with Rocephin until further ID and sensitivities reported. Increase Coumadin today to 2 mg daily. Reduce IV rate to 50 ml/hr. Continue PT for strengthening. Repeat labs in am. Will need cystoscope in near future. 06-28-2018 Patient was admitted from the clinic 06-25-2018 for UTI, ? sepsis, acute on chronic renal insufficiency. He does report that he continues to feel weak and poorly. Reports his stinging sensation with urination has resolved. Does report that through the night last night he continued to have urinary frequency where he was only able to urinate small amounts. That is his biggest complaint today. Urine culture did show ecoli with resistance to Rocephin, which patient was initially started on. Patient was switched to Zosyn yesterday. Preliminary blood culture also reveals gram negative rods. Sensitivity reports not back. WBC improved to 4.1. Was 16.6 on admit and decreased to 2.9 yesterday. CRP is trending down. Was 25.3 on admit, down to 9.5 today. Hcg stable at 8.5. INR threapeutic at 2.07. Continue 2 mg Coumadin daily. Creatinine is also trending down. Was 2.9 on admit, 2.0 today. Baseline creatinine 1.6. Renal US revealed a left bladder mass. Patient will need urology consultation with cystoscopy once infection resolves. This was discussed with patient. Recommend monitoring of I & O. Patient voids small amounts at a time 100-200 mL , multiple times throughout day. We will insert Leahy catheter and check PVR to assess for retention. Bladder scanner not available. Continue IV Zosyn and IVF. Repeat labs in am. Recommend patient get up to chair and ambulate. Anticipated discharge 2-3 days. 06-29-2018 Patient reports he is feeling well this morning. He was up ambulating in halls. Has been afebrile. Reports he no longer feels weak. Denies any chills. Does continue to have urinary frequency, but continues with IVF as well. Reports he has been eating and drinking well. Denies any pain. Nursing did check a PVR with straight cath yesterday, which was 50 mL. He continues to have frequency and urinate small amounts. WBC normal today at 5.2. Hgb stable at 8.7. CRP continues to trend down at 9.3. Creatinine also continued to trend down, 1.9 today. Baseline 1.6-1.7. Urine and blood cultures revealed e coli with sensitivity to Zosyn. Patient has only had 2 days of Zosyn. Would like to continue IV Zosyn for at least one more day. We will stop IVF today as patient is tolerating oral fluids and has had good intake. Blood pressure and pulse have been stable and patient has been afebrile. Anticipate discharge home tomorrow on oral antibiotics. Patient will need outpatient urology consultation with cystoscopy for left bladder mass. This was once again discussed with patient. Patient verbalized understanding and was agreeable with plan.
[2018-06-29] MEDS: Mirtazapine 15 MG Tab PO SCH (19:24)
[2018-06-29] MEDS: Latanoprost 0.005% Ophth Soln 2.5 ML Bottle EYELF SCH (19:25)
[2018-06-30] MEDS: Piperacillin/Tazobactam 3.375 GM in Sodium Chloride 0.9% 50 ML IV SCH (05:58)
[2018-06-30 07:19] VITALS: BP 129/63
[2018-06-30] MEDS: Ferrous Sulfate 324 MG Tab.EC PO SCH (07:40)
[2018-06-30] MEDS: Clopidogrel 75 MG Tab PO SCH (07:40)
[2018-06-30] MEDS: Sertraline 25 MG Tab PO SCH (07:40)
[2018-06-30] MEDS: Levothyroxine 100 MCG Tab PO SCH (07:40)
[2018-06-30] MEDS: Metoprolol Succinate 25 MG Tab.ER PO SCH (07:40)
[2018-06-30] MEDS: Pantoprazole 40 MG Tab.CR PO SCH (07:40)
[2018-06-30] MEDS: Folic Acid 1 MG Tab PO SCH (07:40)
--- NOTE | 2018-06-30 21:13 | PCM.DCSUM1 ---
Discharge Summary - Hospital Course Free Text/Narrative:: Patient presented to clinic with complaints of back and neck pain and weakness. States had noted frequency and burning with urination over the 2 days prior to admission. Afebrile. Lab work done at the clinic showed WBC to be elevated at 16.6. Hemoglobin 9.2. Creatinine 2.9. CRP 25.3. Admitted and started on IV fluids, Rocephin. Blood cultures ordered. Renal ultrasound ordered. Diagnosis: Stroke: No Modified [place] Scale: No Symptoms at All Modified [place] Scale Score: 0 - Discharge Data Discharge Date: 06/30/18 Discharge Disposition: Home, Self-Care 01 Condition: Good - Discharge Diagnosis/Problem(s) (1) UTI (urinary tract infection) SNOMED Code(s): 15591000 ICD Code: N39.0 - URINARY TRACT INFECTION, SITE NOT SPECIFIED Status: Acute Priority: High Qualifiers: Urinary tract infection type: acute cystitis Hematuria presence: without hematuria Qualified Code(s): N30.00 - Acute cystitis without hematuria (2) Weakness SNOMED Code(s): 59980066 ICD Code: R53.1 - WEAKNESS Status: Acute Priority: High (3) Sepsis SNOMED Code(s): 09762050 ICD Code: A41.9 - SEPSIS, UNSPECIFIED ORGANISM Status: Acute Priority: High Qualifiers: Sepsis type: Escherichia coli Qualified Code(s): A41.51 - Sepsis due to Escherichia coli [E. coli] - Patient Summary/Data Complications: none Consults: Consultations 06/25/18 16:47 PT Evaluation and Treatment [CONS] Routine Hospital Course: Patient has had slow but steady improvement of overall status. Strength has improved. Is now afebrile. Up and ambulating. Appetite is good. Blood culture and urine culture both positive for e coli. Was switched to Zosyn for better coverage once sensitivities received as resistant to Ceftriaxone. Renal ultrasound did show mass in bladder, will need follow up by urology. INR was low on admit, Coumadin dose increased to 2 mg but INR did climb to 2.76 yesterday so Coumadin held. Today 3.30. WBC today now 5.4. Hemoglobin stable. CRP improved to 6.4. - Patient Instructions Diet: Usual Diet as Tolerated Activity: As Tolerated - Discharge Plan *PRESCRIPTION DRUG MONITORING PROGRAM REVIEWED*: No *COPY OF PRESCRIPTION DRUG MONITORING REPORT IN PATIENT DEEPTI: No Prescriptions/Med Rec: Levofloxacin [Levaquin] 500 mg PO DAILY #10 tablet Home Medications: Home Meds Acetaminophen [Tylenol Extra Strength] 1,000 mg PO Q6H PRN 04/26/15 [History] Levothyroxine Sodium [Synthroid] 100 mcg PO DAILY 04/26/15 [History] Metoprolol Succinate [Toprol XL 50mg] 50 mg PO DAILY 04/26/15 [History] Mirtazapine [Remeron] 15 mg PO BEDTIME 04/26/15 [History] atorvaSTATin Calcium [Atorvastatin Calcium] 40 mg PO DAILY 04/26/15 [History] Sertraline HCl 50 mg PO DAILY 03/04/17 [History] Pantoprazole Sodium [Protonix] 40 mg PO DAILY 03/07/17 [History] Clopidogrel [Plavix] 75 mg PO DAILY 01/24/18 [History] Ferrous Sulfate 325 mg PO DAILY 01/24/18 [History] Folic Acid 1 mg PO DAILY 01/24/18 [History] Latanoprost [Xalatan 0.005% Ophth Soln] 1 drop EYELF BEDTIME 01/24/18 [History] Levofloxacin [Levaquin] 500 mg PO DAILY #10 tablet 06/30/18 [Rx] Warfarin [Coumadin] 1.5 mg PO Q48H 30 Days #45 tablet 06/30/18 [Rx] Patient Handouts: Urinary Tract Infection, Adult Referrals: Pete Dent, DANIELE [Primary Care Provider] - (Scottie Dent on Saturday for recheck. INR prior to visit.) - Discharge Summary/Plan Comment DC Time >30 min.: No Discharge Summary/Plan Comment: Discharge home Continue Levaquin 500 mg daily INR on Saturday with follow up with Dr. Becker Coumadin 1.5 mg every other day Will need follow up with urology for bladder mass - General Info Date of Service: 06/30/18 Admission Dx/Problem (Free Text: Urosepsis Neck pain Functional Status: Reports: Pain Controlled, Tolerating Diet, Ambulating - Review of Systems General: Reports: Weakness, Fatigue. Denies: Fever HEENT: Reports: No Symptoms Pulmonary: Denies: Shortness of Breath, Cough Cardiovascular: Denies: Chest Pain, Edema, Lightheadedness Gastrointestinal: Denies: Abdominal Pain, Nausea Genitourinary: Reports: Frequency Musculoskeletal: Reports: No Symptoms Skin: Reports: No Symptoms Neurological: Reports: No Symptoms - Patient Data Vitals - Most Recent: Last Vital Signs Temp 96.6 F 06/30/18 07:18 Pulse 64 06/30/18 07:40 Resp 18 06/30/18 07:18 BP 129/63 06/30/18 07:40 Pulse Ox 97 06/30/18 07:18 Weight - Most Recent: 185 lb I&O - Last 24 hours: Intake & Output 06/30/18 06/30/18 06/30/18 06:59 14:59 22:59 Intake Total 400 Output Total 1175 Balance -775 Lab Results - Last 24 hrs: Laboratory Results - last 24 hr 06/30/18 06/30/18 06/30/18 Range/Units 06:45 06:45 06:45 WBC 5.4 (5.0-10.0) 10^3/uL RBC 3.29 L (4.50-6.00) 10^6/uL Hgb 9.0 L (14.0-18.0) g/dL Hct 29.0 L (40.0-54.0) % MCV 88.1 (82.0-94.0) fL MCH 27.4 (27.0-32.0) pg MCHC 31.0 L (33.0-38.0) g/dL RDW Coeff of Deborah 15.2 H (11.0-15.0) % Plt Count 145 L (150-400) 10^3/uL Neut % (Auto) 74.2 (35-85) % Lymph % (Auto) 9.0 L (10-55) % [place] % (Auto) 12.0 (0-16) % Eos % (Auto) 4.4 (0-5) % Baso % (Auto) 0.4 (0-3) % Neut # (Auto) 4.03 (1.80-7.00) 10^3/uL Lymph # (Auto) 0.49 L (1.00-4.80) 10^3/uL [place] # (Auto) 0.65 (0.00-0.80) 10^3/uL Eos # (Auto) 0.24 (0.00-0.45) 10^3/uL Baso # (Auto) 0.02 10^3/uL PT 31.4 H (9.7-12.3) SEC INR 3.30 H (0.92-1.18) Sodium 142 (136-145) mEq/L Potassium 4.7 (3.5-5.0) mEq/L Chloride 107 H (98-106) mEq/L Carbon Dioxide 26 (21-32) mmol/L BUN 22 H (7-18) mg/dL Creatinine 1.8 H (0.7-1.3) mg/dL Est Cr Clr Drug Dosing 38.69 mL/min Estimated GFR (MDRD) 37 L (>=60) mL/min Glucose 94 (75-99) mg/dL Calcium 8.3 L (8.4-10.1) mg/dL C-Reactive Protein 6.4 H (0.2-0.8) mg/dL LEELA Results - Last 24 hrs: Microbiology 06/25/18 16:50 Aerobic Blood Culture - Final Blood - Venous - Lab Draw NO GROWTH AFTER 5 DAYS Anaerobic Blood Culture - Final Escherichia Coli. 06/25/18 16:45 Aerobic Blood Culture - Final Blood - Venous NO GROWTH AFTER 5 DAYS Anaerobic Blood Culture - Final NO GROWTH AFTER 5 DAYS Med Orders - Current: Current Medications Discontinued Medications Acetaminophen (Tylenol) 650 mg PO Q4H PRN PRN Reason: Pain (Mild 1-3)/fever Last Admin: 06/28/18 00:04 Dose: 650 mg Acetaminophen (Tylenol Extra Strength) 1,000 mg PO Q6H PRN PRN Reason: Pain Last Admin: 06/25/18 19:40 Dose: 1,000 mg Ceftriaxone Sodium (Rocephin) 1 gm IVPUSH Q24H [facility] Last Admin: 06/26/18 17:01 Dose: 1 gm Clopidogrel Bisulfate (Plavix) 75 mg PO DAILY [facility] Last Admin: 06/30/18 07:40 Dose: 75 mg Ferrous Sulfate (Ferrous Sulfate) 324 mg PO DAILY [facility] Last Admin: 06/30/18 07:40 Dose: 324 mg Folic Acid (Folic Acid) 1 mg PO DAILY [facility] Last Admin: 06/30/18 07:40 Dose: 1 mg Lactated Ringer's (Ringers, Lactated) 1,000 mls @ 100 mls/hr IV ASDIRECTED [facility] Stop: 06/26/18 00:00 Last Admin: 06/25/18 17:12 Dose: 100 mls/hr Sodium Chloride (Normal Saline) 1,000 mls @ 50 mls/hr IV ASDIRECTED [facility] Last Admin: 06/28/18 23:39 Dose: 100 mls/hr Piperacillin Sod/Tazobactam (Sod 3.375 gm/ Sodium Chloride) 50 mls @ 100 mls/ hr IV Q6H [facility] Last Admin: 06/30/18 05:58 Dose: 100 mls/hr Ibuprofen (Motrin) 200 mg PO Q6H PRN PRN Reason: Fever Ibuprofen (Motrin) 400 mg PO Q6H PRN PRN Reason: Fever Last Admin: 06/28/18 00:47 Dose: 400 mg Latanoprost (Xalatan 0.005% Oph Soln) 0 ml EYELF BEDTIME [facility] Last Admin: 06/29/18 19:25 Dose: 1 drop Levothyroxine Sodium (Synthroid) 100 mcg PO DAILY [facility] Last Admin: 06/30/18 07:40 Dose: 100 mcg Metoprolol Succinate (Toprol Xl) 50 mg PO DAILY [facility] Last Admin: 06/30/18 07:40 Dose: 50 mg Mirtazapine (Remeron) 15 mg PO BEDTIME [facility] Last Admin: 06/29/18 19:24 Dose: 15 mg Oxycodone/Acetaminophen (Percocet 325-5 Mg) 1 - 2 tab PO Q4H PRN PRN Reason: Pain Pantoprazole Sodium (Protonix) 40 mg PO DAILY [facility] Last Admin: 06/30/18 07:40 Dose: 40 mg Piperacillin Sod/Tazobactam Sod (Zosyn) Confirm Administered Dose 3.375 gm .ROUTE .STK-MED ONE Stop: 06/27/18 18:01 Last Admin: 06/27/18 18:00 Dose: Not Given Sertraline HCl (Zoloft) 50 mg PO DAILY [facility] Last Admin: 06/30/18 07:40 Dose: 50 mg Warfarin Sodium (Coumadin) 1.5 mg PO DAILY [facility] Last Admin: 06/26/18 07:37 Dose: 1.5 mg Warfarin Sodium (Coumadin) 2 mg PO DAILY [facility] Last Admin: 06/29/18 07:48 Dose: 2 mg Warfarin Sodium (Coumadin) 1.5 mg PO DAILY@1200 DONNY - Exam General: Reports: Alert, Oriented HEENT: Reports: Mucous Membr. Moist/[place] Neck: Reports: Supple Lungs: Reports: Clear to Auscultation, Normal Respiratory Effort Cardiovascular: Reports: Regular Rate, Regular Rhythm GI/Abdominal Exam: Normal Bowel Sounds, Soft, Non-Tender Extremities: Normal Inspection, No Pedal Edema Skin: Reports: Warm, Dry Neurological: Reports: No New Focal Deficit
== END 2018-06-30 11:45 | disposition home or self-care (01) | DRG 872 ==
LOC: CC.LAB 15:08 → CC.MS 16:29 → UNDOADMIN 16:29 → CC.MS 16:47
PROVIDERS: ADMIT Nurse Practitioner Family; ATTEND Family Medicine
DX: N39.0 Urinary tract infection, site not specified (principal); A41.51 Sepsis due to Escherichia coli [E. coli]; R42 Dizziness and giddiness; N30.00 Acute cystitis without hematuria; I13.0 Hypertensive heart and chronic kidney disease with heart failure and stage 1 through stage 4 chronic kidney disease, or unspecified chronic kidney disease; R53.1 Weakness; N32.89 Other specified disorders of bladder; M54.2 Cervicalgia; M54.9 Dorsalgia, unspecified; N40.1 Benign prostatic hyperplasia with lower urinary tract symptoms; R35.0 Frequency of micturition; H91.90 Unspecified hearing loss, unspecified ear; H26.9 Unspecified cataract; E78.5 Hyperlipidemia, unspecified; I25.10 Atherosclerotic heart disease of native coronary artery without angina pectoris; E53.8 Deficiency of other specified B group vitamins; N18.9 Chronic kidney disease, unspecified; I48.91 Unspecified atrial fibrillation; E03.9 Hypothyroidism, unspecified; Z86.73 Personal history of transient ischemic attack (TIA), and cerebral infarction without residual deficits; Z95.2 Presence of prosthetic heart valve; Z98.890 Other specified postprocedural states; Z79.899 Other long term (current) drug therapy; Z79.01 Long term (current) use of anticoagulants; Z87.891 Personal history of nicotine dependence
CPT/HCPCS: 36415; 76770; 80048; 81001; 85025; 85610; 86140; 87040; 87077; 87086; 87088; 87186; 97161-GP; 97530-GP; A9270-GY; J0696; J2543; J7030; J7050; J7120

== ENCOUNTER 2019-07-06 22:55 | Inpatient (IN) | payer MEDICARE, BC ==
--- NOTE | 2019-07-06 23:21 | EDM.PDOC ---
ED HPI GENERAL MEDICAL PROBLEM - General Chief Complaint: General Stated Complaint: back pain Time Seen by Provider: 07/06/19 23:10 Source of Information: Reports: Patient, Family History Limitations: Reports: No Limitations - History of Present Illness INITIAL COMMENTS - FREE TEXT/NARRATIVE: Dillon is an 79 year old male who presents to the ED via private vehicle with c/ o midline lower back pain. He reports pain started 6 days ago. No known injury. He reports he was seen in the clinic earlier today by Scottie DUMONT and had xrays done. He reports he was given pain medications. He did take those this evening and reports they did not help the pain. He reports pain is a 10/10 at its worse. Reports pain is worsened when he tries to sit down or stand up. Reports he took his Tramadol and methocrabamol prior to going to bed but it did not help pain. is struggling with back issues and unable to help him. He has very difficult time standing and ambulating. Onset Date: 06/30/19 Duration: Getting Worse Location: Reports: Back Quality: Reports: Ache, Sharp Severity: Severe Improves with: Reports: None Worsens with: Reports: Movement Associated Symptoms: Reports: No Other Symptoms. Denies: Confusion, Chest Pain , Cough, cough w sputum, Diaphoresis, Fever/Chills, Headaches, Loss of Appetite , Malaise, Nausea/Vomiting, Rash, Seizure, Shortness of Breath, Syncope, Weakness Treatments SAFETY MANAGER: Reports: NSAIDS, Other Medication(s) (Tramadol & methocarbamol) Lower Back Pain Score (Numeric/FACES): 10 - Related Data Allergies Allergy/AdvReac Type Severity Reaction Status Date / Time No Known Allergies Allergy Verified 07/06/19 22:56 Home Meds: Home Meds Acetaminophen [Tylenol Extra Strength] 1,000 mg PO Q6H PRN 04/26/15 [History] Levothyroxine Sodium [Synthroid] 100 mcg PO DAILY 04/26/15 [History] Metoprolol Succinate [Toprol XL 50mg] 50 mg PO DAILY 04/26/15 [History] Mirtazapine [Remeron] 15 mg PO BEDTIME 04/26/15 [History] atorvaSTATin Calcium [Atorvastatin Calcium] 40 mg PO DAILY 04/26/15 [History] Sertraline HCl 50 mg PO DAILY 06/26/17 [History] Pantoprazole Sodium [Protonix] 40 mg PO DAILY 03/07/17 [History] Clopidogrel [Plavix] 75 mg PO DAILY 01/24/18 [History] Ferrous Sulfate 325 mg PO DAILY 01/24/18 [History] Latanoprost [Xalatan 0.005% Ophth Soln] 1 drop EYELF BEDTIME 01/24/18 [History] Lisinopril 10 mg PO DAILY 05/25/19 [History] Warfarin [Coumadin] 1.5 mg PO DAILY #30 tab 05/27/19 [Rx] Past Medical History HEENT History: Reports: Glaucoma, Hard of Hearing Other HEENT History: blind in left eye Cardiovascular History: Reports: Aneurysm, High Cholesterol, Hypertension Gastrointestinal History: Reports: GERD Psychiatric History: Reports: Depression Endocrine/Metabolic History: Reports: Hypothyroidism Hematologic History: Reports: Anticoagulation Therapy - Past Surgical History HEENT Surgical History: Reports: Cataract Surgery Cardiovascular Surgical History: Reports: Aneurysm, Valve Replacement, Other ( See Below) Other Cardiovascular Surgeries/Procedures: 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 ED EXAM, GENERAL - Physical Exam Exam: See Below Exam Limited By: No Limitations General Appearance: Alert, WD/WN, Mild Distress Eye Exam: Bilateral Eye: EOMI, PERRL Head: Atraumatic, Normocephalic Neck: Normal Inspection, Supple, Non-Tender, Full Range of Motion Respiratory/Chest: No Respiratory Distress, Lungs Clear, Normal Breath Sounds, No Accessory Muscle Use, Chest Non-Tender Cardiovascular: Normal Peripheral Pulses, Regular Rate, Rhythm, No Edema, Systolic Murmur GI/Abdominal: Normal Bowel Sounds, Soft, Non-Tender, No Organomegaly, No Distention, No Abnormal Bruit, No Mass Back Exam: Decreased Range of Motion, Paraspinal Tenderness (L1-L2), Vertebral Tenderness (L1-L2) Extremities: Normal Inspection, Normal Range of Motion, Non-Tender, Normal Capillary Refill, No Pedal Edema Neurological: Alert, Oriented, No Motor/Sensory Deficits, Abnormal Gait ( antalgic, difficulty standing) Psychiatric: Normal Affect, Normal Mood Course - Vital Signs Last Recorded V/S: Last Vital Signs Temp 97.4 F 07/07/19 15:18 Pulse 52 L 07/07/19 15:18 Resp 18 07/07/19 15:18 BP 115/50 L 07/07/19 15:18 Pulse Ox 96 07/07/19 15:18 - Orders/Labs/Meds Orders: Active Orders 24 hr Category Date Time Status Patient Status [ADT] Routine ADT 07/07/19 09:37 Active Oxygen Therapy [RC] .PRN Care 07/06/19 23:41 Active Pulse Oximetry [RC] .PRN Care 07/06/19 23:41 Active Up With Assistance [RC] .PRN Care 07/06/19 23:41 Active Vital Signs [RC] 0800,1200,1600,2000,0000,0400 Care 07/06/19 23:41 Active PT Evaluation and Treatment [CONS] Routine Cons 07/06/19 23:41 Active Lumbar Spine Comp wo Cont [MR] Routine Exams 07/07/19 09:38 Ordered INR,PT,PROTHROMBIN TIME [COAG] DAILY Lab 07/08/19 07:00 Ordered Acetaminophen [Tylenol Extra Strength] Med 07/06/19 23:41 Active 1,000 mg PO Q6H PRN Acetaminophen/HYDROcodone [[place]oss 325-5 MG] Med 07/06/19 23:41 Active 1 tab PO Q4H PRN Clopidogrel [Plavix] Med 07/07/19 08:00 Active 75 mg PO DAILY Cyclobenzaprine [Flexeril] Med 07/06/19 23:43 Active 10 mg PO TID PRN Docusate Sodium [Colace] Med 07/06/19 23:41 Active 100 mg PO BID PRN Ferrous Sulfate Med 07/07/19 08:00 Active 324 mg PO DAILY Latanoprost [Xalatan 0.005% Ophth Soln] Med 07/07/19 20:00 Active 0 ml EYELF BEDTIME Levothyroxine [Synthroid] Med 07/07/19 07:00 Active 100 mcg PO ACBREAKFAST Lisinopril [Prinivil] Med 07/07/19 08:00 Active 10 mg PO DAILY Metoprolol Succinate [Toprol XL] Med 07/07/19 08:00 Active 50 mg PO DAILY Mirtazapine [Remeron] Med 07/07/19 20:00 Active 15 mg PO BEDTIME Morphine Med 07/06/19 23:41 Active 2 mg IVPUSH Q2H PRN Ondansetron [Zofran] Med 07/06/19 23:41 Active 4 mg IV Q6H PRN Pantoprazole [ProTONIX] Med 07/07/19 20:00 Active 40 mg PO BEDTIME Sertraline [Zoloft] Med 07/07/19 08:00 Active 50 mg PO DAILY Sodium Chloride 0.9% [Saline Flush] Med 07/06/19 23:41 Active 10 ml FLUSH ASDIRECTED PRN Temazepam [Restoril] Med 07/06/19 23:41 Active 15 mg PO BEDTIME PRN atorvaSTATin [Lipitor] Med 07/07/19 20:00 Active 40 mg PO BEDTIME Anticoagulation Contraindications VTE [AST] Per Unit Oth 07/06/19 23:41 Ordered Routine Saline Lock Insert [OM.PC] Routine Oth 07/06/19 23:41 Ordered Resuscitation Status Routine Resus Stat 07/06/19 23:23 Ordered Medication Orders Acetaminophen (Tylenol Extra Strength) 1,000 mg PO Q6H PRN PRN Reason: Pain Hydrocodone Bitart/Acetaminophen ([place] 325-5 Mg) 1 tab PO Q4H PRN PRN Reason: Pain (moderate 4-6) Atorvastatin Calcium (Lipitor) 40 mg PO BEDTIME [facility] Clopidogrel Bisulfate (Plavix) 75 mg PO DAILY [facility] Last Admin: 07/07/19 09:52 Dose: 75 mg Cyclobenzaprine HCl (Flexeril) 10 mg PO TID PRN PRN Reason: Muscle Spasm Last Admin: 07/07/19 08:47 Dose: 10 mg Docusate Sodium (Colace) 100 mg PO BID PRN PRN Reason: Constipation Ferrous Sulfate (Ferrous Sulfate) 324 mg PO DAILY [facility] Last Admin: 07/07/19 09:52 Dose: 324 mg Latanoprost (Xalatan 0.005% Oph Soln) 0 ml EYELF BEDTIME [facility] Levothyroxine Sodium (Synthroid) 100 mcg PO ACBREAKFAST [facility] Last Admin: 07/07/19 09:53 Dose: 100 mcg Lisinopril (Prinivil) 10 mg PO DAILY [facility] Last Admin: 07/07/19 09:53 Dose: 10 mg Metoprolol Succinate (Toprol Xl) 50 mg PO DAILY [facility] Last Admin: 07/07/19 09:53 Dose: 50 mg Mirtazapine (Remeron) 15 mg PO BEDTIME [facility] Morphine Sulfate (Morphine) 2 mg IVPUSH Q2H PRN PRN Reason: Pain (severe 7-10) Last Admin: 07/07/19 07:29 Dose: 2 mg Admin: 07/07/19 00:02 Dose: 2 mg Ondansetron HCl (Zofran) 4 mg IV Q6H PRN PRN Reason: Nausea/Vomiting Last Admin: 07/07/19 00:02 Dose: 4 mg Pantoprazole Sodium (Protonix) 40 mg PO BEDTIME [facility] Sertraline HCl (Zoloft) 50 mg PO DAILY [facility] Last Admin: 07/07/19 09:54 Dose: 50 mg Sodium Chloride (Saline Flush) 10 ml FLUSH ASDIRECTED PRN PRN Reason: Keep Vein Open Temazepam (Restoril) 15 mg PO BEDTIME PRN PRN Reason: Sleep Warfarin Sodium (Coumadin) 1.5 mg PO DAILY@1200 [facility] Last Admin: 07/07/19 12:33 Dose: 1.5 mg Labs: Laboratory Tests 07/07/19 07/07/19 07/07/19 Range/Units 05:11 05:11 07:00 WBC 4.6 L (5.0-10.0) 10^3/uL RBC 3.74 L (4.50-6.00) 10^6/uL Hgb 11.0 L (14.0-18.0) g/dL Hct 34.7 L (40.0-54.0) % MCV 92.8 (82.0-94.0) fL MCH 29.4 (27.0-32.0) pg MCHC 31.7 L (33.0-38.0) g/dL RDW Coeff of Deborah 14.6 (11.0-15.0) % Plt Count 171 (150-400) 10^3/uL Neut % (Auto) 63.7 (35-85) % Lymph % (Auto) 14.0 (10-55) % [place] % (Auto) 15.7 (0-16) % Eos % (Auto) 5.9 H (0-5) % Baso % (Auto) 0.7 (0-3) % Neut # (Auto) 2.92 (1.80-7.00) 10^3/uL Lymph # (Auto) 0.64 L (1.00-4.80) 10^3/uL [place] # (Auto) 0.72 (0.00-0.80) 10^3/uL Eos # (Auto) 0.27 (0.00-0.45) 10^3/uL Baso # (Auto) 0.03 10^3/uL PT 18.7 H (9.7-12.3) SEC INR 1.88 H (0.92-1.18) Sodium 141 (136-145) mEq/L Potassium 4.6 (3.5-5.0) mEq/L Chloride 105 (98-106) mEq/L Carbon Dioxide 27 (21-32) mmol/L BUN 27 H (7-18) mg/dL Creatinine 1.8 H (0.7-1.3) mg/dL Est Cr Clr Drug Dosing 38.06 mL/min Estimated GFR (MDRD) 36 L (>=60) mL/min Glucose 92 (75-99) mg/dL Calcium 8.6 (8.4-10.1) mg/dL C-Reactive Protein 3.4 H (0.2-0.8) mg/dL Meds: Medications Generic Name Dose Route Start Last Admin Trade Name Freq PRN Reason Stop Dose Admin Acetaminophen 1,000 mg 07/06/19 23:41 Tylenol Extra Strength PO Q6H PRN Pain Hydrocodone Bitart/Acetaminophen 1 tab 07/06/19 23:41 Moss 325-5 Mg PO Q4H PRN Pain (moderate 4-6) Atorvastatin Calcium 40 mg 07/07/19 20:00 Lipitor PO BEDTIME [facility] Clopidogrel Bisulfate 75 mg 07/07/19 08:00 07/07/19 09:52 Plavix PO 75 mg DAILY [facility] Administration Cyclobenzaprine HCl 10 mg 07/06/19 23:43 07/07/19 08:47 Flexeril PO 10 mg TID PRN Administration Muscle Spasm Docusate Sodium 100 mg 07/06/19 23:41 Colace PO BID PRN Constipation Ferrous Sulfate 324 mg 07/07/19 08:00 07/07/19 09:52 Ferrous Sulfate PO 324 mg DAILY [facility] Administration Latanoprost 0 ml 07/07/19 20:00 Xalatan 0.005% Ophth Soln EYELF BEDTIME [facility] Levothyroxine Sodium 100 mcg 07/07/19 07:00 07/07/19 09:53 Synthroid PO 100 mcg ACBREAKFAST [facility] Administration Lisinopril 10 mg 07/07/19 08:00 07/07/19 09:53 Prinivil PO 10 mg DAILY [facility] Administration Metoprolol Succinate 50 mg 07/07/19 08:00 07/07/19 09:53 Toprol Xl PO 50 mg DAILY [facility] Administration Mirtazapine 15 mg 07/07/19 20:00 Remeron PO BEDTIME [facility] Morphine Sulfate 2 mg 07/06/19 23:41 07/07/19 07:29 Morphine IVPUSH 2 mg Q2H PRN Administration Pain (severe 7-10) Ondansetron HCl 4 mg 07/06/19 23:41 07/07/19 00:02 Zofran IV 4 mg Q6H PRN Administration Nausea/Vomiting Pantoprazole Sodium 40 mg 07/07/19 20:00 Protonix PO BEDTIME [facility] Sertraline HCl 50 mg 07/07/19 08:00 07/07/19 09:54 Zoloft PO 50 mg DAILY [facility] Administration Sodium Chloride 10 ml 07/06/19 23:41 Saline Flush FLUSH ASDIRECTED PRN Keep Vein Open Temazepam 15 mg 07/06/19 23:41 Restoril PO BEDTIME PRN Sleep Warfarin Sodium 1.5 mg 07/07/19 12:00 07/07/19 12:33 Coumadin PO 1.5 mg DAILY@1200 [facility] Administration Discontinued Medications Generic Name Dose Route Start Last Admin Trade Name Freq PRN Reason Stop Dose Admin Atorvastatin Calcium 40 mg 07/07/19 08:00 Lipitor PO DAILY [facility] Mirtazapine 15 mg 07/06/19 23:41 07/07/19 01:25 Remeron PO Not Given BEDTIME [facility] Warfarin 3mg Own 0.5 each 07/07/19 12:00 Med PO DAILY@1200 [facility] Pantoprazole Sodium 40 mg 07/07/19 08:00 Protonix PO DAILY [facility] Warfarin Sodium 1.5 mg 07/07/19 12:00 Coumadin PO DAILY@1200 [facility] Departure - Departure Time of Disposition: 23:20 Disposition: Refer to Observation Condition: Fair Clinical Impression: Compression fracture of L1 lumbar vertebra Qualifiers: Encounter type: initial encounter Qualified Code(s): S32.010A - Wedge compression fracture of first lumbar vertebra, initial encounter for closed fracture - Discharge Information *PRESCRIPTION DRUG MONITORING PROGRAM REVIEWED*: Not Applicable *COPY OF PRESCRIPTION DRUG MONITORING REPORT IN PATIENT DEEPTI: Not Applicable - Problem List & Annotations (1) Compression fracture of L1 lumbar vertebra SNOMED Code(s): 507991725 Code(s): S32.010A - WEDGE COMPRESSION FRACTURE OF FIRST LUMBAR VERTEBRA, INIT Status: Acute Priority: High Current Visit: Yes Qualifiers: Encounter type: initial encounter Qualified Code(s): S32.010A - Wedge compression fracture of first lumbar vertebra, initial encounter for closed fracture - Problem List Review Problem List Initiated/Reviewed/Updated: Yes - My Orders Last 24 Hours: My Active Orders 07/06/19 23:23 Resuscitation Status Routine 07/06/19 23:41 Oxygen Therapy [RC] .PRN Pulse Oximetry [RC] .PRN Up With Assistance [RC] .PRN Vital Signs [RC] 0800,1200,1600,2000,0000,0400 PT Evaluation and Treatment [CONS] Routine Acetaminophen [Tylenol Extra Strength] 1,000 mg PO Q6H PRN Acetaminophen/HYDROcodone [[place]oss 325-5 MG] 1 tab PO Q4H PRN Docusate Sodium [Colace] 100 mg PO BID PRN Morphine 2 mg IVPUSH Q2H PRN Ondansetron [Zofran] 4 mg IV Q6H PRN Sodium Chloride 0.9% [Saline Flush] 10 ml FLUSH ASDIRECTED PRN Temazepam [Restoril] 15 mg PO BEDTIME PRN Anticoagulation Contraindications VTE [AST] Per Unit Routine Saline Lock Insert [OM.PC] Routine 07/06/19 23:43 Cyclobenzaprine [Flexeril] 10 mg PO TID PRN 07/07/19 07:00 Levothyroxine [Synthroid] 100 mcg PO ACBREAKFAST 07/07/19 08:00 Clopidogrel [Plavix] 75 mg PO DAILY Ferrous Sulfate 324 mg PO DAILY Lisinopril [Prinivil] 10 mg PO DAILY Metoprolol Succinate [Toprol XL] 50 mg PO DAILY Sertraline [Zoloft] 50 mg PO DAILY 07/07/19 20:00 Latanoprost [Xalatan 0.005% Ophth Soln] 0 ml EYELF BEDTIME Mirtazapine [Remeron] 15 mg PO BEDTIME Pantoprazole [ProTONIX] 40 mg PO BEDTIME atorvaSTATin [Lipitor] 40 mg PO BEDTIME 07/08/19 07:00 INR,PT,PROTHROMBIN TIME [COAG] DAILY - Assessment/Plan Admission H&P: Please use this note as an admission H&P Last 24 Hours: My Active Orders 07/06/19 23:23 Resuscitation Status Routine 07/06/19 23:41 Oxygen Therapy [RC] .PRN Pulse Oximetry [RC] .PRN Up With Assistance [RC] .PRN Vital Signs [RC] 0800,1200,1600,2000,0000,0400 PT Evaluation and Treatment [CONS] Routine Acetaminophen [Tylenol Extra Strength] 1,000 mg PO Q6H PRN Acetaminophen/HYDROcodone [Moss 325-5 MG] 1 tab PO Q4H PRN Docusate Sodium [Colace] 100 mg PO BID PRN Morphine 2 mg IVPUSH Q2H PRN Ondansetron [Zofran] 4 mg IV Q6H PRN Sodium Chloride 0.9% [Saline Flush] 10 ml FLUSH ASDIRECTED PRN Temazepam [Restoril] 15 mg PO BEDTIME PRN Anticoagulation Contraindications VTE [AST] Per Unit Routine Saline Lock Insert [OM.PC] Routine 07/06/19 23:43 Cyclobenzaprine [Flexeril] 10 mg PO TID PRN 07/07/19 07:00 Levothyroxine [Synthroid] 100 mcg PO ACBREAKFAST 07/07/19 08:00 Clopidogrel [Plavix] 75 mg PO DAILY Ferrous Sulfate 324 mg PO DAILY Lisinopril [Prinivil] 10 mg PO DAILY Metoprolol Succinate [Toprol XL] 50 mg PO DAILY Sertraline [Zoloft] 50 mg PO DAILY 07/07/19 20:00 Latanoprost [Xalatan 0.005% Ophth Soln] 0 ml EYELF BEDTIME Mirtazapine [Remeron] 15 mg PO BEDTIME Pantoprazole [ProTONIX] 40 mg PO BEDTIME atorvaSTATin [Lipitor] 40 mg PO BEDTIME 07/08/19 07:00 INR,PT,PROTHROMBIN TIME [COAG] DAILY Assessment:: Compression Fracture of Lumbar 1 Plan: Patient struggling to care for self at home due to pain. Will admit to observation for PT and pain management. Discussed possibility of MRI if pain persist to evaluate for possible vertebroplasty. Patient and agreeable with plan.
[2019-07-06] MEDS ORDERED: Sodium Chloride 0.9% 10 ML Syringe FLUSH PRN (23:41)
[2019-07-06] MEDS ORDERED: Docusate Sodium 100 MG Cap PO PRN (23:41)
[2019-07-06] MEDS ORDERED: Temazepam 15 MG Cap PO PRN (23:41)
[2019-07-06] MEDS ORDERED: Acetaminophen 500 MG Tab PO PRN (23:41)
[2019-07-07] MEDS: Ondansetron 4 MG/2 ML SDV IV PRN ×2 (00:02→20:09)
[2019-07-07] MEDS: Morphine 2 MG/ML Syringe IVPUSH PRN ×3 (00:02→20:10)
[2019-07-07] MEDS: Mirtazapine 15 MG Tab PO SCH ×3 (00:06→19:42)
[2019-07-07] MEDS ORDERED: atorvaSTATin 20 MG Tab PO SCH (08:00)
[2019-07-07] MEDS ORDERED: Pantoprazole 40 MG Tab.CR PO SCH (08:00)
[2019-07-07] MEDS: Cyclobenzaprine 10 MG Tab PO PRN ×2 (08:47→20:09)
--- NOTE | 2019-07-07 09:05 | PCM.PN ---
- General Info Date of Service: 07/07/19 Admission Dx/Problem (Free Text): L1 Compression Fracture Functional Status: Reports: Pain Controlled, Tolerating Diet, Ambulating - Review of Systems General: Reports: Weakness, Fatigue HEENT: Reports: No Symptoms Pulmonary: Reports: No Symptoms Cardiovascular: Reports: No Symptoms Gastrointestinal: Reports: No Symptoms Musculoskeletal: Reports: Back Pain Skin: Reports: No Symptoms Neurological: Reports: Weakness - Patient Data Vitals - Most Recent: Last Vital Signs Temp 97.2 F 07/07/19 07:39 Pulse 60 07/07/19 07:39 Resp 18 07/07/19 07:39 BP 147/51 H 07/07/19 07:39 Pulse Ox 96 07/07/19 07:39 Weight - Most Recent: 182 lb 9.6 oz Lab Results Last 24 Hours: Laboratory Results - last 24 hr 07/07/19 07/07/19 07/07/19 Range/Units 05:11 05:11 07:00 WBC 4.6 L (5.0-10.0) 10^3/uL RBC 3.74 L (4.50-6.00) 10^6/uL Hgb 11.0 L (14.0-18.0) g/dL Hct 34.7 L (40.0-54.0) % MCV 92.8 (82.0-94.0) fL MCH 29.4 (27.0-32.0) pg MCHC 31.7 L (33.0-38.0) g/dL RDW Coeff of Deborah 14.6 (11.0-15.0) % Plt Count 171 (150-400) 10^3/uL Neut % (Auto) 63.7 (35-85) % Lymph % (Auto) 14.0 (10-55) % [place] % (Auto) 15.7 (0-16) % Eos % (Auto) 5.9 H (0-5) % Baso % (Auto) 0.7 (0-3) % Neut # (Auto) 2.92 (1.80-7.00) 10^3/uL Lymph # (Auto) 0.64 L (1.00-4.80) 10^3/uL [place] # (Auto) 0.72 (0.00-0.80) 10^3/uL Eos # (Auto) 0.27 (0.00-0.45) 10^3/uL Baso # (Auto) 0.03 10^3/uL PT 18.7 H (9.7-12.3) SEC INR 1.88 H (0.92-1.18) Sodium 141 (136-145) mEq/L Potassium 4.6 (3.5-5.0) mEq/L Chloride 105 (98-106) mEq/L Carbon Dioxide 27 (21-32) mmol/L BUN 27 H (7-18) mg/dL Creatinine 1.8 H (0.7-1.3) mg/dL Est Cr Clr Drug Dosing 38.06 mL/min Estimated GFR (MDRD) 36 L (>=60) mL/min Glucose 92 (75-99) mg/dL Calcium 8.6 (8.4-10.1) mg/dL C-Reactive Protein 3.4 H (0.2-0.8) mg/dL Med Orders - Current: Current Medications Acetaminophen (Tylenol Extra Strength) 1,000 mg PO Q6H PRN PRN Reason: Pain Hydrocodone Bitart/Acetaminophen ([place] 325-5 Mg) 1 tab PO Q4H PRN PRN Reason: Pain (moderate 4-6) Clopidogrel Bisulfate (Plavix) 75 mg PO DAILY [facility] Cyclobenzaprine HCl (Flexeril) 10 mg PO TID PRN PRN Reason: Muscle Spasm Last Admin: 07/07/19 08:47 Dose: 10 mg Docusate Sodium (Colace) 100 mg PO BID PRN PRN Reason: Constipation Ferrous Sulfate (Ferrous Sulfate) 324 mg PO DAILY [facility] Latanoprost (Xalatan 0.005% Ophth Soln) 0 ml EYELF BEDTIME [facility] Levothyroxine Sodium (Synthroid) 100 mcg PO ACBREAKFAST [facility] Lisinopril (Prinivil) 10 mg PO DAILY [facility] Metoprolol Succinate (Toprol Xl) 50 mg PO DAILY [facility] Mirtazapine (Remeron) 15 mg PO BEDTIME [facility] Morphine Sulfate (Morphine) 2 mg IVPUSH Q2H PRN PRN Reason: Pain (severe 7-10) Last Admin: 07/07/19 07:29 Dose: 2 mg Atorvastatin 40mg (*Own Med) 1 each PO BEDTIME [facility] Warfarin 3mg Own (Med) 0.5 each PO DAILY@1200 [facility] Ondansetron HCl (Zofran) 4 mg IV Q6H PRN PRN Reason: Nausea/Vomiting Last Admin: 07/07/19 00:02 Dose: 4 mg Pantoprazole Sodium (Protonix) 40 mg PO BEDTIME [facility] Sertraline HCl (Zoloft) 50 mg PO DAILY [facility] Sodium Chloride (Saline Flush) 10 ml FLUSH ASDIRECTED PRN PRN Reason: Keep Vein Open Temazepam (Restoril) 15 mg PO BEDTIME PRN PRN Reason: Sleep Discontinued Medications Atorvastatin Calcium (Lipitor) 40 mg PO DAILY [facility] Mirtazapine (Remeron) 15 mg PO BEDTIME [facility] Last Admin: 07/07/19 01:25 Dose: Not Given Pantoprazole Sodium (Protonix) 40 mg PO DAILY [facility] Warfarin Sodium (Coumadin) 1.5 mg PO DAILY@1200 [facility] - Exam General: Alert, Oriented HEENT: Mucous Membr. Moist/[place] Neck: Supple Lungs: Clear to Auscultation, Normal Respiratory Effort Cardiovascular: Irregular Rhythm GI/Abdominal Exam: Normal Bowel Sounds, Soft, Non-Tender Back Exam: Decreased Range of Motion, Muscle Spasm, Vertebral Tenderness Extremities: Normal Inspection, No Pedal Edema Skin: Warm, Dry Neurological: No New Focal Deficit - Problem List & Annotations (1) Compression fracture of L1 lumbar vertebra SNOMED Code(s): 343307654 Code(s): S32.010A - WEDGE COMPRESSION FRACTURE OF FIRST LUMBAR VERTEBRA, INIT Status: Acute Priority: High Current Visit: Yes Qualifiers: Encounter type: initial encounter Qualified Code(s): S32.010A - Wedge compression fracture of first lumbar vertebra, initial encounter for closed fracture - Problem List Review Problem List Initiated/Reviewed/Updated: Yes - Assessment Assessment:: L1 Compression Fracture - Plan Plan:: Patient resting comfortably, states is pain free when lying flat. Has increased pain to a 10/10 with any movement, especially with getting in and out of bed. He relates that 6 days ago, he was lifting the litter box and had pain after that. Has not fallen. States was able to sleep last night after getting morphine. Labs stable on admit. Will continue with pain meds, physical therapy for ambulation. Transfer to inpatient. Plan for MRI of lumbar spine.
[2019-07-07] MEDS: Ferrous Sulfate 324 MG Tab.EC PO SCH (09:52)
[2019-07-07] MEDS: Clopidogrel 75 MG Tab PO SCH (09:52)
[2019-07-07] MEDS: Lisinopril 10 MG Tab PO SCH (09:53)
[2019-07-07] MEDS: Levothyroxine 100 MCG Tab PO SCH (09:53)
[2019-07-07] MEDS: Metoprolol Succinate 25 MG Tab.ER PO SCH (09:53)
[2019-07-07] MEDS: Sertraline 25 MG Tab PO SCH (09:54)
[2019-07-07] MEDS ORDERED: WARFARIN 3 MG PO SCH (12:00)
[2019-07-07] MEDS: atorvaSTATin 20 MG Tab PO SCH (19:41)
[2019-07-07] MEDS: Latanoprost 0.005% Ophth Soln 2.5 ML Bottle EYELF SCH (19:42)
[2019-07-07] MEDS: Pantoprazole 40 MG Tab.CR PO SCH (19:42)
[2019-07-08] MEDS: Levothyroxine 100 MCG Tab PO SCH (06:56)
[2019-07-08] MEDS: Clopidogrel 75 MG Tab PO SCH (07:36)
[2019-07-08] MEDS: Metoprolol Succinate 25 MG Tab.ER PO SCH (07:36)
[2019-07-08] MEDS: Sertraline 25 MG Tab PO SCH (07:36)
[2019-07-08] MEDS: Lisinopril 10 MG Tab PO SCH (07:36)
[2019-07-08] MEDS: Ferrous Sulfate 324 MG Tab.EC PO SCH (07:36)
[2019-07-08] MEDS: Morphine 2 MG/ML Syringe IVPUSH PRN ×2 (10:10→19:41)
[2019-07-08] MEDS: Cyclobenzaprine 10 MG Tab PO PRN ×2 (10:13→19:41)
--- NOTE | 2019-07-08 16:45 | PCM.PN ---
- General Info Date of Service: 07/08/19 Admission Dx/Problem (Free Text): L1 Compression Fracture Functional Status: Reports: Pain Controlled, Tolerating Diet, Ambulating (is still having increased pain with getting in and out of bed) - Review of Systems General: Reports: Weakness. Denies: Fever, Fatigue HEENT: Reports: No Symptoms Pulmonary: Reports: No Symptoms Cardiovascular: Reports: No Symptoms Gastrointestinal: Reports: No Symptoms Genitourinary: Reports: No Symptoms Musculoskeletal: Reports: Back Pain Skin: Reports: No Symptoms Neurological: Reports: Weakness - Patient Data Vitals - Most Recent: Last Vital Signs Temp 97.7 F 07/08/19 16:00 Pulse 56 L 07/08/19 16:00 Resp 16 07/08/19 16:00 BP 122/44 L 07/08/19 16:00 Pulse Ox 98 07/08/19 16:00 Weight - Most Recent: 182 lb 9.6 oz Lab Results Last 24 Hours: Laboratory Results - last 24 hr 07/08/19 Range/Units 06:50 PT 27.3 H (9.7-12.3) SEC INR 2.81 H (0.92-1.18) Med Orders - Current: Current Medications Acetaminophen (Tylenol Extra Strength) 1,000 mg PO Q6H PRN PRN Reason: Pain Hydrocodone Bitart/Acetaminophen ([place] 325-5 Mg) 1 tab PO Q4H PRN PRN Reason: Pain (moderate 4-6) Atorvastatin Calcium (Lipitor) 40 mg PO BEDTIME [facility] Last Admin: 07/07/19 19:41 Dose: 40 mg Clopidogrel Bisulfate (Plavix) 75 mg PO DAILY [facility] Last Admin: 07/08/19 07:36 Dose: 75 mg Cyclobenzaprine HCl (Flexeril) 10 mg PO TID PRN PRN Reason: Muscle Spasm Last Admin: 07/08/19 10:13 Dose: 10 mg Docusate Sodium (Colace) 100 mg PO BID PRN PRN Reason: Constipation Ferrous Sulfate (Ferrous Sulfate) 324 mg PO DAILY [facility] Last Admin: 07/08/19 07:36 Dose: 324 mg Latanoprost (Xalatan 0.005% Ophth Soln) 0 ml EYELF BEDTIME [facility] Last Admin: 07/07/19 19:42 Dose: 1 drop Levothyroxine Sodium (Synthroid) 100 mcg PO ACBREAKFAST [facility] Last Admin: 07/08/19 06:56 Dose: 100 mcg Lisinopril (Prinivil) 10 mg PO DAILY [facility] Last Admin: 07/08/19 07:36 Dose: 10 mg Metoprolol Succinate (Toprol Xl) 50 mg PO DAILY [facility] Last Admin: 07/08/19 07:36 Dose: 50 mg Mirtazapine (Remeron) 15 mg PO BEDTIME [facility] Last Admin: 07/07/19 19:42 Dose: 15 mg Morphine Sulfate (Morphine) 2 mg IVPUSH Q2H PRN PRN Reason: Pain (severe 7-10) Last Admin: 07/08/19 10:10 Dose: 2 mg Ondansetron HCl (Zofran) 4 mg IV Q6H PRN PRN Reason: Nausea/Vomiting Last Admin: 07/07/19 20:09 Dose: 4 mg Pantoprazole Sodium (Protonix) 40 mg PO BEDTIME [facility] Last Admin: 07/07/19 19:42 Dose: 40 mg Sertraline HCl (Zoloft) 50 mg PO DAILY [facility] Last Admin: 07/08/19 07:36 Dose: 50 mg Sodium Chloride (Saline Flush) 10 ml FLUSH ASDIRECTED PRN PRN Reason: Keep Vein Open Temazepam (Restoril) 15 mg PO BEDTIME PRN PRN Reason: Sleep Warfarin Sodium (Coumadin) 1.5 mg PO DAILY@1200 [facility] Last Admin: 07/08/19 12:06 Dose: 1.5 mg Discontinued Medications Atorvastatin Calcium (Lipitor) 40 mg PO DAILY [facility] Mirtazapine (Remeron) 15 mg PO BEDTIME [facility] Last Admin: 07/07/19 01:25 Dose: Not Given Warfarin 3mg Own (Med) 0.5 each PO DAILY@1200 [facility] Pantoprazole Sodium (Protonix) 40 mg PO DAILY [facility] Warfarin Sodium (Coumadin) 1.5 mg PO DAILY@1200 [facility] - Exam General: Alert, Oriented HEENT: Mucous Membr. Moist/[place] Neck: Supple Lungs: Clear to Auscultation, Normal Respiratory Effort Cardiovascular: Irregular Rhythm GI/Abdominal Exam: Normal Bowel Sounds, Soft, Non-Tender Back Exam: Decreased Range of Motion, Vertebral Tenderness Extremities: Normal Inspection, No Pedal Edema Skin: Warm, Dry Neurological: No New Focal Deficit - Problem List & Annotations (1) Compression fracture of L1 lumbar vertebra SNOMED Code(s): 390271739 Code(s): S32.010A - WEDGE COMPRESSION FRACTURE OF FIRST LUMBAR VERTEBRA, INIT Status: Acute Priority: High Current Visit: Yes Qualifiers: Encounter type: initial encounter Qualified Code(s): S32.010A - Wedge compression fracture of first lumbar vertebra, initial encounter for closed fracture - Problem List Review Problem List Initiated/Reviewed/Updated: Yes - My Orders Last 24 Hours: My Active Orders 07/10/19 09:38 Lumbar Spine Comp wo Cont [MR] Routine - Assessment Assessment:: L1 Compression Fracture - Plan Plan:: Patient resting comfortably, states is pain free when lying flat. Has increased pain to a 10/10 with any movement, especially with getting in and out of bed. He relates that 6 days ago, he was lifting the litter box and had pain after that. Has not fallen. States was able to sleep last night after getting morphine. Labs stable on admit. Will continue with pain meds, physical therapy for ambulation. Transfer to inpatient. Plan for MRI of lumbar spine. 07-08-2019 Patient admits that pain is improved today. Denies any pain while lying in bed , questioning if could go home today. However, patient unable to get in and out of bed unassisted and has increased pain. Voiding well. Once up and moving , is ambulating fairly well. PT does not feel patient will manage at home yet due to pain. will continue with PT and pain control. Plan to proceed with MRI on Saturday.
[2019-07-08] MEDS: Mirtazapine 15 MG Tab PO SCH (19:37)
[2019-07-08] MEDS: Pantoprazole 40 MG Tab.CR PO SCH (19:37)
[2019-07-08] MEDS: atorvaSTATin 20 MG Tab PO SCH (19:37)
[2019-07-08] MEDS: Latanoprost 0.005% Ophth Soln 2.5 ML Bottle EYELF SCH (19:38)
[2019-07-09] MEDS: Levothyroxine 100 MCG Tab PO SCH (06:21)
[2019-07-09] MEDS: Acetaminophen/HYDROcodone 325-5 MG Tab PO PRN ×2 (06:26→19:34)
[2019-07-09] MEDS: Metoprolol Succinate 25 MG Tab.ER PO SCH (08:08)
[2019-07-09] MEDS: Lisinopril 10 MG Tab PO SCH (08:09)
[2019-07-09] MEDS: Sertraline 25 MG Tab PO SCH (08:09)
[2019-07-09] MEDS: Clopidogrel 75 MG Tab PO SCH (08:10)
[2019-07-09] MEDS: Ferrous Sulfate 324 MG Tab.EC PO SCH (08:10)
--- NOTE | 2019-07-09 17:51 | PCM.PN ---
- General Info Date of Service: 07/09/19 Admission Dx/Problem (Free Text): L1 Compression Fracture Functional Status: Reports: Pain Controlled (with lying down and once up walking ), Tolerating Diet, Ambulating - Review of Systems General: Reports: Weakness HEENT: Reports: No Symptoms Pulmonary: Reports: No Symptoms Cardiovascular: Reports: No Symptoms Gastrointestinal: Reports: No Symptoms Genitourinary: Reports: No Symptoms Musculoskeletal: Reports: Back Pain Skin: Reports: No Symptoms Neurological: Reports: Weakness - Patient Data Vitals - Most Recent: Last Vital Signs Temp 96.9 F 07/09/19 07:38 Pulse 63 07/09/19 08:08 Resp 14 07/09/19 07:38 BP 127/71 07/09/19 08:09 Pulse Ox 96 07/09/19 07:38 Weight - Most Recent: 182 lb 9.6 oz Med Orders - Current: Current Medications Acetaminophen (Tylenol Extra Strength) 1,000 mg PO Q6H PRN PRN Reason: Pain Hydrocodone Bitart/Acetaminophen ([place] 325-5 Mg) 1 tab PO Q4H PRN PRN Reason: Pain (moderate 4-6) Last Admin: 07/09/19 06:26 Dose: 1 tab Atorvastatin Calcium (Lipitor) 40 mg PO BEDTIME [facility]S [facility] Last Admin: 07/08/19 19:37 Dose: 40 mg Clopidogrel Bisulfate (Plavix) 75 mg PO DAILY [facility] Last Admin: 07/09/19 08:10 Dose: 75 mg Cyclobenzaprine HCl (Flexeril) 10 mg PO TID PRN PRN Reason: Muscle Spasm Last Admin: 07/08/19 19:41 Dose: 10 mg Docusate Sodium (Colace) 100 mg PO BID PRN PRN Reason: Constipation Ferrous Sulfate (Ferrous Sulfate) 324 mg PO DAILY [facility]S [facility] Last Admin: 07/09/19 08:10 Dose: 324 mg Latanoprost (Xalatan 0.005% Ophth Soln) 0 ml EYELF BEDTIME [facility] 234 B[facility]S [facility] Last Admin: 07/08/19 19:38 Dose: 1 drop Levothyroxine Sodium (Synthroid) 100 mcg PO ACBREAKFAST [facility] 234 B[facility]S [facility] Last Admin: 07/09/19 06:21 Dose: 100 mcg Lisinopril (Prinivil) 10 mg PO DAILY [facility] 234 [facility]S [facility] Last Admin: 07/09/19 08:09 Dose: 10 mg Metoprolol Succinate (Toprol Xl) 50 mg PO DAILY [facility] Last Admin: 07/09/19 08:08 Dose: 50 mg Mirtazapine (Remeron) 15 mg PO BEDTIME [facility] Last Admin: 07/08/19 19:37 Dose: 15 mg Morphine Sulfate (Morphine) 2 mg IVPUSH Q2H PRN PRN Reason: Pain (severe 7-10) Last Admin: 07/08/19 19:41 Dose: 2 mg Ondansetron HCl (Zofran) 4 mg IV Q6H PRN PRN Reason: Nausea/Vomiting Last Admin: 07/07/19 20:09 Dose: 4 mg Pantoprazole Sodium (Protonix) 40 mg PO BEDTIME [facility] Last Admin: 07/08/19 19:37 Dose: 40 mg Sertraline HCl (Zoloft) 50 mg PO DAILY [facility] Last Admin: 07/09/19 08:09 Dose: 50 mg Sodium Chloride (Saline Flush) 10 ml FLUSH ASDIRECTED PRN PRN Reason: Keep Vein Open Temazepam (Restoril) 15 mg PO BEDTIME PRN PRN Reason: Sleep Warfarin Sodium (Coumadin) 1.5 mg PO DAILY@1200 [facility] Last Admin: 07/09/19 12:01 Dose: 1.5 mg Discontinued Medications Atorvastatin Calcium (Lipitor) 40 mg PO DAILY [facility] Mirtazapine (Remeron) 15 mg PO BEDTIME [facility] 234 [facility] Last Admin: 07/07/19 01:25 Dose: Not Given Warfarin 3mg Own (Med) 0.5 each PO DAILY@1200 [facility]S [facility] Pantoprazole Sodium (Protonix) 40 mg PO DAILY [facility] 234 [facility] Warfarin Sodium (Coumadin) 1.5 mg PO DAILY@1200 [facility] - Exam General: Alert, Oriented HEENT: Mucous Membr. Moist/[place] Neck: Supple Lungs: Clear to Auscultation, Normal Respiratory Effort GI/Abdominal Exam: Normal Bowel Sounds, Soft, Non-Tender Back Exam: Normal Inspection, Decreased Range of Motion, Vertebral Tenderness Extremities: Normal Inspection, No Pedal Edema Skin: Warm, Dry Neurological: No New Focal Deficit - Problem List & Annotations (1) Compression fracture of L1 lumbar vertebra SNOMED Code(s): 360195035 Code(s): S32.010A - WEDGE COMPRESSION FRACTURE OF FIRST LUMBAR VERTEBRA, INIT Status: Acute Priority: High Current Visit: Yes Qualifiers: Encounter type: initial encounter Qualified Code(s): S32.010A - Wedge compression fracture of first lumbar vertebra, initial encounter for closed fracture - Problem List Review Problem List Initiated/Reviewed/Updated: Yes - My Orders Last 24 Hours: My Active Orders 07/10/19 05:11 BASIC METABOLIC PANEL,BMP [CHEM] AM C-REACTIVE PROTEIN [CHEM] AM CBC WITH AUTO DIFF [HEME] AM 07/10/19 09:38 Lumbar Spine Comp wo Cont [MR] Routine - Assessment Assessment:: L1 Compression Fracture - Plan Plan:: Patient resting comfortably, states is pain free when lying flat. Has increased pain to a 10/10 with any movement, especially with getting in and out of bed. He relates that 6 days ago, he was lifting the litter box and had pain after that. Has not fallen. States was able to sleep last night after getting morphine. Labs stable on admit. Will continue with pain meds, physical therapy for ambulation. Transfer to inpatient. Plan for MRI of lumbar spine. 07-08-2019 Patient admits that pain is improved today. Denies any pain while lying in bed , questioning if could go home today. However, patient unable to get in and out of bed unassisted and has increased pain. Voiding well. Once up and moving , is ambulating fairly well. PT does not feel patient will manage at home yet due to pain. will continue with PT and pain control. Plan to proceed with MRI on Saturday. 07-09-2019 Patient resting comfortably. Still continues to have pain when getting in and out of bed. Tender to the lumbar spine with palpation. Does continue to do well once up and ambulating but feels weak now "from being in bed for several days". Will continue with PT. Pain control. MRI in am to determine if candidate for vertebroplasty.
[2019-07-09] MEDS: Mirtazapine 15 MG Tab PO SCH (19:30)
[2019-07-09] MEDS: Pantoprazole 40 MG Tab.CR PO SCH (19:30)
[2019-07-09] MEDS: atorvaSTATin 20 MG Tab PO SCH (19:30)
[2019-07-09] MEDS: Latanoprost 0.005% Ophth Soln 2.5 ML Bottle EYELF SCH (19:31)
[2019-07-10] MEDS: Levothyroxine 100 MCG Tab PO SCH (06:50)
[2019-07-10] MEDS: Metoprolol Succinate 25 MG Tab.ER PO SCH (08:35)
[2019-07-10] MEDS: Acetaminophen/HYDROcodone 325-5 MG Tab PO PRN (08:36)
[2019-07-10] MEDS: Sertraline 25 MG Tab PO SCH (08:36)
[2019-07-10] MEDS: Lisinopril 10 MG Tab PO SCH (08:36)
[2019-07-10] MEDS: Clopidogrel 75 MG Tab PO SCH (08:36)
[2019-07-10] MEDS: Ferrous Sulfate 324 MG Tab.EC PO SCH (08:36)
[2019-07-10 15:55] VITALS: BP 162/55; PULSE 75
--- NOTE | 2019-07-10 19:29 | PCM.DCSUM1 ---
Discharge Summary - Hospital Course Free Text/Narrative:: Patient presented to ER with complaints of low back pain. Had been experiencing pain for about 6 days. Initially was seen in clinic during the day and had xrays done, noted L1 compression fracture. He was started on pain meds and muscle relaxants. Took those at home without any relief of the pain. He rated pain at a 10/10. Admitted for pain control and physical therapy. Diagnosis: Stroke: No Modified Benton Scale: No Symptoms at All Modified Benton Scale Score: 0 - Discharge Data Discharge Date: 07/10/19 Discharge Disposition: Home, Self-Care 01 Condition: Fair - Referral to Home Health Primary Care Physician: Ruth Eller NP - Discharge Diagnosis/Problem(s) (1) Compression fracture of L1 lumbar vertebra SNOMED Code(s): 105284495 ICD Code: S32.010A - WEDGE COMPRESSION FRACTURE OF FIRST LUMBAR VERTEBRA, INIT Status: Acute Priority: High Qualifiers: Encounter type: initial encounter Qualified Code(s): S32.010A - Wedge compression fracture of first lumbar vertebra, initial encounter for closed fracture - Patient Summary/Data Complications: none Consults: Consultations 07/06/19 23:41 PT Evaluation and Treatment [CONS] Routine Hospital Course: Patient is slowly improving and finding better relief of his pain with current pain meds and muscle relaxants. Has minimal pain while at rest, increases with getting in and out of bed raising from a chair. He has been on [place] which "works better than tramadol". He has been ambulating well with PT once up. Had MRI of his back today which showed 40% compression of L1. MRI was forwarded to interventional radiology and awaiting consult report. He does feel he is able to now manage at home with pain meds and await consultation recommendations. Labs have remained stable, INR therapeutic. - Patient Instructions Diet: Usual Diet as Tolerated Activity: As Tolerated - Discharge Plan *PRESCRIPTION DRUG MONITORING PROGRAM REVIEWED*: Not Applicable *COPY OF PRESCRIPTION DRUG MONITORING REPORT IN PATIENT DEEPTI: Not Applicable Prescriptions/Med Rec: Acetaminophen/HYDROcodone [[place] 325-5 MG] 1 - 2 tab PO Q4H PRN #45 tablet PRN Reason: Pain (Moderate 4-6) Cyclobenzaprine [Flexeril] 10 mg PO TID PRN #30 tablet PRN Reason: Muscle Spasm Home Medications: Home Meds Acetaminophen [Tylenol Extra Strength] 1,000 mg PO Q6H PRN 04/26/15 [History] Levothyroxine Sodium [Synthroid] 100 mcg PO DAILY 04/26/15 [History] Metoprolol Succinate [Toprol XL 50mg] 50 mg PO DAILY 04/26/15 [History] Mirtazapine [Remeron] 15 mg PO BEDTIME 04/26/15 [History] atorvaSTATin Calcium [Atorvastatin Calcium] 40 mg PO DAILY 04/26/15 [History] Sertraline HCl 50 mg PO DAILY 03/04/17 [History] Pantoprazole Sodium [Protonix] 40 mg PO DAILY 03/07/17 [History] Clopidogrel [Plavix] 75 mg PO DAILY 01/24/18 [History] Ferrous Sulfate 325 mg PO DAILY 01/24/18 [History] Latanoprost [Xalatan 0.005% Ophth Soln] 1 drop EYELF BEDTIME 01/24/18 [History] Lisinopril 10 mg PO DAILY 05/25/19 [History] Warfarin [Coumadin] 1.5 mg PO DAILY #30 tab 05/27/19 [Rx] Acetaminophen/HYDROcodone [[place] 325-5 MG] 1 - 2 tab PO Q4H PRN #45 tablet 07/10 [Rx] Cyclobenzaprine [Flexeril] 10 mg PO TID PRN #30 tablet 07/10/19 [Rx] Forms: ED Department Discharge Referrals: Pete Dent PA-C [[facility]] - (Follow up with Scottie Dent in one week) - Discharge Summary/Plan Comment DC Time >30 min.: No - General Info Date of Service: 07/10/19 Admission Dx/Problem (Free Text: L1 Compression Fracture Functional Status: Reports: Pain Controlled, Tolerating Diet, Ambulating, Urinating - Review of Systems General: Reports: Weakness, Fatigue HEENT: Reports: No Symptoms Pulmonary: Denies: Shortness of Breath, Cough Cardiovascular: Denies: Chest Pain, Edema, Lightheadedness Gastrointestinal: Denies: Abdominal Pain, Nausea, Vomiting Genitourinary: Reports: No Symptoms Musculoskeletal: Reports: Back Pain Skin: Reports: No Symptoms Neurological: Reports: Weakness - Patient Data Vitals - Most Recent: Last Vital Signs Temp 97.2 F 07/10/19 08:00 Pulse 72 07/10/19 08:35 Resp 18 07/10/19 08:00 BP 150/68 H 07/10/19 08:36 Pulse Ox 98 07/10/19 08:00 Weight - Most Recent: 182 lb 9.6 oz Lab Results - Last 24 hrs: Laboratory Results - last 24 hr 07/10/19 07/10/19 Range/Units 07:03 07:03 WBC 5.2 (5.0-10.0) 10^3/uL RBC 3.90 L (4.50-6.00) 10^6/uL Hgb 11.3 L (14.0-18.0) g/dL Hct 36.3 L (40.0-54.0) % MCV 93.1 (82.0-94.0) fL MCH 29.0 (27.0-32.0) pg MCHC 31.1 L (33.0-38.0) g/dL RDW Coeff of [place] 14.2 (11.0-15.0) % Plt Count 188 (150-400) 10^3/uL Neut % (Auto) 68.8 (35-85) % Lymph % (Auto) 10.4 (10-55) % [place] % (Auto) 13.3 (0-16) % Eos % (Auto) 7.1 H (0-5) % Baso % (Auto) 0.4 (0-3) % Neut # (Auto) 3.58 (1.80-7.00) 10^3/uL Lymph # (Auto) 0.54 L (1.00-4.80) 10^3/uL [place] # (Auto) 0.69 (0.00-0.80) 10^3/uL Eos # (Auto) 0.37 (0.00-0.45) 10^3/uL Baso # (Auto) 0.02 10^3/uL Sodium 141 (136-145) mEq/L Potassium 5.4 H (3.5-5.0) mEq/L Chloride 105 (98-106) mEq/L Carbon Dioxide 30 (21-32) mmol/L BUN 27 H (7-18) mg/dL Creatinine 1.6 H (0.7-1.3) mg/dL Est Cr Clr Drug Dosing 42.81 mL/min Estimated GFR (MDRD) 42 L (>=60) mL/min Glucose 97 (75-99) mg/dL Calcium 8.7 (8.4-10.1) mg/dL C-Reactive Protein 2.9 H (0.2-0.8) mg/dL Med Orders - Current: Current Medications Acetaminophen (Tylenol Extra Strength) 1,000 mg PO Q6H PRN PRN Reason: Pain Hydrocodone Bitart/Acetaminophen ([place] 325-5 Mg) 1 tab PO Q4H PRN PRN Reason: Pain (moderate 4-6) Last Admin: 07/10/19 08:36 Dose: 1 tab Atorvastatin Calcium (Lipitor) 40 mg PO BEDTIME [facility] Last Admin: 07/09/19 19:30 Dose: 40 mg Clopidogrel Bisulfate (Plavix) 75 mg PO DAILY [facility] Last Admin: 07/10/19 08:36 Dose: 75 mg Cyclobenzaprine HCl (Flexeril) 10 mg PO TID PRN PRN Reason: Muscle Spasm Last Admin: 07/08/19 19:41 Dose: 10 mg Docusate Sodium (Colace) 100 mg PO BID PRN PRN Reason: Constipation Ferrous Sulfate (Ferrous Sulfate) 324 mg PO DAILY [facility] Last Admin: 07/10/19 08:36 Dose: 324 mg Latanoprost (Xalatan 0.005% Ophth Soln) 0 ml EYELF BEDTIME [facility] Last Admin: 07/09/19 19:31 Dose: 1 drop Levothyroxine Sodium (Synthroid) 100 mcg PO ACBREAKFAST [facility] Last Admin: 07/10/19 06:50 Dose: 100 mcg Lisinopril (Prinivil) 10 mg PO DAILY [facility] Last Admin: 07/10/19 08:36 Dose: 10 mg Metoprolol Succinate (Toprol Xl) 50 mg PO DAILY [facility] Last Admin: 07/10/19 08:35 Dose: 50 mg Mirtazapine (Remeron) 15 mg PO BEDTIME [facility] Last Admin: 07/09/19 19:30 Dose: 15 mg Morphine Sulfate (Morphine) 2 mg IVPUSH Q2H PRN PRN Reason: Pain (severe 7-10) Last Admin: 07/08/19 19:41 Dose: 2 mg Ondansetron HCl (Zofran) 4 mg IV Q6H PRN PRN Reason: Nausea/Vomiting Last Admin: 07/07/19 20:09 Dose: 4 mg Pantoprazole Sodium (Protonix) 40 mg PO BEDTIME [facility] Last Admin: 07/09/19 19:30 Dose: 40 mg Sertraline HCl (Zoloft) 50 mg PO DAILY [facility] Last Admin: 07/10/19 08:36 Dose: 50 mg Sodium Chloride (Saline Flush) 10 ml FLUSH ASDIRECTED PRN PRN Reason: Keep Vein Open Temazepam (Restoril) 15 mg PO BEDTIME PRN PRN Reason: Sleep Warfarin Sodium (Coumadin) 1.5 mg PO DAILY@1200 [facility] Last Admin: 07/10/19 12:47 Dose: 1.5 mg Discontinued Medications Atorvastatin Calcium (Lipitor) 40 mg PO DAILY [facility] Mirtazapine (Remeron) 15 mg PO BEDTIME [facility] Last Admin: 07/07/19 01:25 Dose: Not Given Warfarin 3mg Own (Med) 0.5 each PO DAILY@1200 [facility] Pantoprazole Sodium (Protonix) 40 mg PO DAILY [facility] Warfarin Sodium (Coumadin) 1.5 mg PO DAILY@1200 [facility] - Exam General: Reports: Alert, Oriented HEENT: Reports: Mucous Membr. Moist/[place] Neck: Reports: Supple Lungs: Reports: Clear to Auscultation, Normal Respiratory Effort Cardiovascular: Reports: Regular Rate, Regular Rhythm GI/Abdominal Exam: Normal Bowel Sounds, Soft, Non-Tender Back Exam: Reports: Normal Inspection, Vertebral Tenderness Extremities: Normal Inspection, No Pedal Edema Skin: Reports: Warm, Dry Neurological: Reports: No New Focal Deficit *Q Meaningful Use (DIS) - VTE *Q VTE Anticoagulation Contraindications: Alternative [place] Request PT
== END 2019-07-10 18:35 | disposition home or self-care (01) | DRG 552 ==
LOC: CC.ED 22:55 → UNDOADMOB 23:22 → CC.MS 23:22 → OBSVTOIN 07-07 09:39
PROVIDERS: ADMIT Nurse Practitioner Family; ATTEND Family Medicine
DX: G89.11 Acute pain due to trauma (principal); S32.010A Wedge compression fracture of first lumbar vertebra, initial encounter for closed fracture; R53.1 Weakness; H40.9 Unspecified glaucoma; H91.90 Unspecified hearing loss, unspecified ear; E78.00 Pure hypercholesterolemia, unspecified; I10 Essential (primary) hypertension; K21.9 Gastro-esophageal reflux disease without esophagitis; E03.9 Hypothyroidism, unspecified; X50.9XXA Other and unspecified overexertion or strenuous movements or postures, initial encounter; Z79.899 Other long term (current) drug therapy; Z79.01 Long term (current) use of anticoagulants; Z98.49 Cataract extraction status, unspecified eye; Z95.2 Presence of prosthetic heart valve; Z90.49 Acquired absence of other specified parts of digestive tract; I70.90 Unspecified atherosclerosis; M47.816 Spondylosis without myelopathy or radiculopathy, lumbar region; Z98.890 Other specified postprocedural states
CPT/HCPCS: 36415; 72110; 72148; 80048; 85025; 85610; 86140; 96374; 96375; 96376; 97110-GP; 97161-GP; 99220; 99284; A9270-GY; G0378; J2270; J2405

== ENCOUNTER 2019-08-24 20:43 | Inpatient (IN) | payer MEDICARE, BC ==
[2019-08-24] MEDS ORDERED: Sodium Chloride 0.9% 10 ML Syringe FLUSH PRN (21:05)
[2019-08-24] MEDS: fentaNYL 100 MCG/2 ML SDV IVPUSH PRN (22:11)
[2019-08-25] MEDS: fentaNYL 100 MCG/2 ML SDV IVPUSH PRN ×2 (03:50→20:26)
[2019-08-25] MEDS: Pantoprazole 40 MG Tab.CR PO SCH (07:46)
[2019-08-25] MEDS: Sertraline 25 MG Tab PO SCH (07:47)
[2019-08-25] MEDS: Lisinopril 10 MG Tab PO SCH (07:47)
[2019-08-25] MEDS: Acetaminophen 325 MG Tab PO SCH ×3 (07:47→20:22)
[2019-08-25] MEDS: Gabapentin 100 MG Cap PO SCH ×3 (07:48→20:22)
[2019-08-25] MEDS: Metoprolol Succinate 25 MG Tab.ER PO SCH (07:48)
[2019-08-25] MEDS: Levothyroxine 100 MCG Tab PO SCH (07:48)
[2019-08-25] MEDS: Polyethylene Glycol 3350 Powder 17 GM Packet PO SCH (07:49)
[2019-08-25] MEDS: atorvaSTATin 20 MG Tab PO SCH (07:49)
[2019-08-25] MEDS: Ferrous Sulfate 324 MG Tab.EC PO SCH (07:49)
[2019-08-25] MEDS: Timolol Maleate 0.5% Ophth Soln 5 ML Bottle EYEBOTH SCH (07:50)
[2019-08-25] MEDS: Diazepam 5 MG Tab PO PRN ×2 (07:50→14:57)
[2019-08-25] MEDS: Acetaminophen/HYDROcodone 325-5 MG Tab PO PRN (11:55)
[2019-08-25] MEDS: Latanoprost 0.005% Ophth Soln 2.5 ML Bottle EYELF SCH (20:24)
--- NOTE | 2019-08-25 21:22 | PCM.PN ---
- General Info Date of Service: 08/25/19 Admission Dx/Problem (Free Text): T12 compression fracture Functional Status: Reports: Tolerating Diet, Ambulating. Denies: Pain Controlled - Review of Systems General: Reports: Weakness, Fatigue HEENT: Reports: No Symptoms Pulmonary: Denies: Shortness of Breath, Cough Cardiovascular: Denies: Chest Pain, Edema, Lightheadedness Gastrointestinal: Denies: Abdominal Pain Genitourinary: Reports: No Symptoms Musculoskeletal: Reports: Back Pain Skin: Reports: No Symptoms Neurological: Reports: Weakness Psychiatric: Reports: No Symptoms - Patient Data Vitals - Most Recent: Last Vital Signs Temp 97.8 F 08/25/19 16:00 Pulse 61 08/25/19 16:00 Resp 14 08/25/19 16:00 BP 128/74 08/25/19 16:00 Pulse Ox 98 08/25/19 16:00 Weight - Most Recent: 176 lb 9.6 oz Lab Results Last 24 Hours: Laboratory Results - last 24 hr 08/25/19 08/25/19 08/25/19 Range/Units 05:11 05:11 05:11 WBC 5.0 (5.0-10.0) 10^3/uL RBC 3.14 L (4.50-6.00) 10^6/uL Hgb 9.2 L (14.0-18.0) g/dL Hct 30.9 L (40.0-54.0) % MCV 98.4 H (82.0-94.0) fL MCH 29.3 (27.0-32.0) pg MCHC 29.8 L (33.0-38.0) g/dL RDW Coeff of Deborah 17.2 H (11.0-15.0) % Plt Count 194 (150-400) 10^3/uL Neut % (Auto) 75.6 (35-85) % Lymph % (Auto) 7.8 L (10-55) % [place] % (Auto) 11.0 (0-16) % Eos % (Auto) 5.4 H (0-5) % Baso % (Auto) 0.2 (0-3) % Neut # (Auto) 3.79 (1.80-7.00) 10^3/uL Lymph # (Auto) 0.39 L (1.00-4.80) 10^3/uL [place] # (Auto) 0.55 (0.00-0.80) 10^3/uL Eos # (Auto) 0.27 (0.00-0.45) 10^3/uL Baso # (Auto) 0.01 10^3/uL PT 24.0 H (9.7-12.3) SEC INR 2.45 H (0.92-1.18) Sodium 145 (136-145) mEq/L Potassium 4.3 (3.5-5.0) mEq/L Chloride 108 H (98-106) mEq/L Carbon Dioxide 28 (21-32) mmol/L BUN 25 H (7-18) mg/dL Creatinine 1.5 H (0.7-1.3) mg/dL Est Cr Clr Drug Dosing 44.50 mL/min Estimated GFR (MDRD) 45 L (>=60) mL/min Glucose 106 H (75-99) mg/dL Calcium 8.2 L (8.4-10.1) mg/dL Med Orders - Current: Current Medications Acetaminophen (Tylenol) 650 mg PO TID [facility] Last Admin: 08/25/19 20:22 Dose: 650 mg Hydrocodone Bitart/Acetaminophen ([place] 325-5 Mg) 1 - 2 tab PO Q4H PRN PRN Reason: Pain (moderate 4-6) Last Admin: 08/25/19 11:55 Dose: 2 tab Atorvastatin Calcium (Lipitor) 40 mg PO DAILY [facility] Last Admin: 08/25/19 07:49 Dose: 40 mg Diazepam (Valium.) 5 mg PO TID PRN PRN Reason: Spasms Last Admin: 08/25/19 14:57 Dose: 5 mg Fentanyl (Sublimaze) 25 - 50 mcg IVPUSH Q2H PRN PRN Reason: Pain Last Admin: 08/25/19 20:26 Dose: 50 mcg Ferrous Sulfate (Ferrous Sulfate) 324 mg PO DAILY [facility] Last Admin: 08/25/19 07:49 Dose: 324 mg Gabapentin (Neurontin) 100 mg PO TID [facility] Last Admin: 08/25/19 20:22 Dose: 100 mg Latanoprost (Xalatan 0.005% Ophth Soln) 0 ml EYELF BEDTIME [facility] Last Admin: 08/25/19 20:24 Dose: 1 drop Levothyroxine Sodium (Synthroid) 100 mcg PO DAILY [facility] Last Admin: 08/25/19 07:48 Dose: 100 mcg Lisinopril (Prinivil) 10 mg PO DAILY [facility] Last Admin: 08/25/19 07:47 Dose: 10 mg Metoprolol Succinate (Toprol Xl) 50 mg PO DAILY [facility] Last Admin: 08/25/19 07:48 Dose: 50 mg Pantoprazole Sodium (Protonix) 40 mg PO DAILY [facility] Last Admin: 08/25/19 07:46 Dose: 40 mg Polyethylene Glycol (Miralax) 17 gm PO DAILY [facility] Last Admin: 08/25/19 07:49 Dose: Not Given Sertraline HCl (Zoloft) 50 mg PO DAILY [facility] Last Admin: 08/25/19 07:47 Dose: 50 mg Sodium Chloride (Saline Flush) 10 ml FLUSH ASDIRECTED PRN PRN Reason: Keep Vein Open Timolol Maleate (Timoptic 0.5% Ophth Soln) 0 ml EYEBOTH DAILY [facility] Last Admin: 08/25/19 07:50 Dose: 1 ml - Exam General: Alert, Oriented HEENT: Mucous Membr. Moist/[place] Neck: Supple Lungs: Clear to Auscultation, Normal Respiratory Effort Cardiovascular: Irregular Rhythm GI/Abdominal Exam: Normal Bowel Sounds, Soft, Non-Tender Back Exam: Decreased Range of Motion, Vertebral Tenderness Extremities: Normal Inspection, No Pedal Edema Skin: Warm, Dry Neurological: No New Focal Deficit Sepsis Event Note - Evaluation Sepsis Screening Result: No Definite Risk - Focused Exam Vital Signs: Vital Signs Temp Pulse Resp BP Pulse Ox 08/25/19 16:00 97.8 F 61 14 128/74 98 08/25/19 11:54 98.4 F 63 20 127/69 99 Date Exam was Performed: 08/25/19 Time Exam was Performed: 21:16 - Problem List & Annotations (1) T12 compression fracture SNOMED Code(s): 266313119 Code(s): S22.080A - WEDGE COMPRESSION FRACTURE OF T11-T12 VERTEBRA, INIT Status: Acute Priority: High Current Visit: Yes Qualifiers: Encounter type: initial encounter Qualified Code(s): S22.080A - Wedge compression fracture of T11-T12 vertebra, initial encounter for closed fracture - Problem List Review Problem List Initiated/Reviewed/Updated: Yes - Assessment Assessment:: T12 Compression Fracture - Plan Plan:: Patient reports ongoing pain in back. States injections for pain help for short time. States has most pain with getting in and out of bed. When lying flat on back, less pain. Was noted to have new T12 compression fracture on xray , directly above recent L1 compression fracture. Had vertebroplasty with relief of the pain. He unfortunately developed a hematoma after that and was transferred to [facility]. Relates was hard to tell difference between that pain and the development of this but was not getting relief with pain meds at home. Did see Scottie Dent in clinic yesterday, had returned home but couldn't transfer or get out of bed without severe pain so returned back to hospital. Admitted last evening. Does have vertebral tenderness in the thoracic region. Down for CT scan of thoracic spine today. Will continue with IV and/or oral pain meds. Await results and determine if candidate again for vertebroplasty. Is currently on Coumadin, INR therapeutic at this time.
[2019-08-26] MEDS: Polyethylene Glycol 3350 Powder 17 GM Packet PO SCH (07:48)
[2019-08-26] MEDS: atorvaSTATin 20 MG Tab PO SCH (07:48)
[2019-08-26] MEDS: Ferrous Sulfate 324 MG Tab.EC PO SCH (07:48)
[2019-08-26] MEDS: Pantoprazole 40 MG Tab.CR PO SCH (07:49)
[2019-08-26] MEDS: Lisinopril 10 MG Tab PO SCH (07:49)
[2019-08-26] MEDS: Gabapentin 100 MG Cap PO SCH ×3 (07:49→19:58)
[2019-08-26] MEDS: Metoprolol Succinate 25 MG Tab.ER PO SCH (07:50)
[2019-08-26] MEDS: Levothyroxine 100 MCG Tab PO SCH (07:50)
[2019-08-26] MEDS: Sertraline 25 MG Tab PO SCH (07:51)
[2019-08-26] MEDS: Acetaminophen 325 MG Tab PO SCH ×3 (07:51→19:58)
[2019-08-26] MEDS: Timolol Maleate 0.5% Ophth Soln 5 ML Bottle EYEBOTH SCH (07:52)
[2019-08-26] MEDS: fentaNYL 100 MCG/2 ML SDV IVPUSH PRN (07:58)
--- NOTE | 2019-08-26 19:17 | PCM.PN ---
- General Info Date of Service: 08/26/19 Admission Dx/Problem (Free Text): T12 compression fracture Functional Status: Reports: Pain Controlled (with pain meds), Tolerating Diet, Ambulating - Review of Systems General: Reports: Weakness HEENT: Reports: No Symptoms Pulmonary: Reports: No Symptoms Cardiovascular: Reports: No Symptoms Gastrointestinal: Reports: No Symptoms Genitourinary: Reports: No Symptoms Musculoskeletal: Reports: Back Pain Skin: Reports: No Symptoms Neurological: Reports: Weakness - Patient Data Vitals - Most Recent: Last Vital Signs Temp 97.6 F 08/26/19 16:00 Pulse 59 L 08/26/19 16:00 Resp 20 08/26/19 16:00 BP 132/59 L 08/26/19 16:00 Pulse Ox 98 08/26/19 16:00 Weight - Most Recent: 176 lb 9.6 oz Med Orders - Current: Current Medications Acetaminophen (Tylenol) 650 mg PO TID [facility] Last Admin: 08/26/19 13:42 Dose: 650 mg Hydrocodone Bitart/Acetaminophen ([place] 325-5 Mg) 1 - 2 tab PO Q4H PRN PRN Reason: Pain (moderate 4-6) Last Admin: 08/25/19 11:55 Dose: 2 tab Atorvastatin Calcium (Lipitor) 40 mg PO DAILY [facility] Last Admin: 08/26/19 07:48 Dose: 40 mg Diazepam (Valium.) 5 mg PO TID PRN PRN Reason: Spasms Last Admin: 08/25/19 14:57 Dose: 5 mg Fentanyl (Sublimaze) 25 - 50 mcg IVPUSH Q2H PRN PRN Reason: Pain Last Admin: 08/26/19 07:58 Dose: 50 mcg Ferrous Sulfate (Ferrous Sulfate) 324 mg PO DAILY [facility] Last Admin: 08/26/19 07:48 Dose: 324 mg Gabapentin (Neurontin) 100 mg PO TID [facility] Last Admin: 08/26/19 13:42 Dose: 100 mg Latanoprost (Xalatan 0.005% Ophth Soln) 0 ml EYELF BEDTIME [facility] Last Admin: 08/25/19 20:24 Dose: 1 drop Levothyroxine Sodium (Synthroid) 100 mcg PO DAILY [facility] Last Admin: 08/26/19 07:50 Dose: 100 mcg Lisinopril (Prinivil) 10 mg PO DAILY [facility] Last Admin: 08/26/19 07:49 Dose: 10 mg Metoprolol Succinate (Toprol Xl) 50 mg PO DAILY [facility] Last Admin: 08/26/19 07:50 Dose: 50 mg Pantoprazole Sodium (Protonix) 40 mg PO DAILY [facility] Last Admin: 08/26/19 07:49 Dose: 40 mg Polyethylene Glycol (Miralax) 17 gm PO DAILY [facility] Last Admin: 08/26/19 07:48 Dose: 17 gm Sertraline HCl (Zoloft) 50 mg PO DAILY [facility] Last Admin: 08/26/19 07:51 Dose: 50 mg Sodium Chloride (Saline Flush) 10 ml FLUSH ASDIRECTED PRN PRN Reason: Keep Vein Open Timolol Maleate (Timoptic 0.5% Ophth Soln) 0 ml EYEBOTH DAILY [facility] Last Admin: 08/26/19 07:52 Dose: 1 ml - Exam General: Alert, Oriented Neck: Supple Lungs: Clear to Auscultation, Normal Respiratory Effort Cardiovascular: Regular Rate, Regular Rhythm GI/Abdominal Exam: Normal Bowel Sounds, Soft, Non-Tender Back Exam: Normal Inspection, Vertebral Tenderness (midback) Extremities: Normal Inspection, No Pedal Edema Skin: Warm, Dry Neurological: No New Focal Deficit Sepsis Event Note - Evaluation Sepsis Screening Result: No Definite Risk - Focused Exam Vital Signs: Vital Signs Temp Pulse Pulse Resp BP BP BP 08/26/19 16:00 97.6 F 59 L 20 132/59 L 08/26/19 12:00 97.7 F 58 L 20 115/53 L 08/26/19 08:00 98.1 F 63 20 132/57 L 08/26/19 07:50 63 132/57 L 08/26/19 07:49 132/57 L Pulse Ox 08/26/19 16:00 98 08/26/19 12:00 97 08/26/19 08:00 95 08/26/19 07:50 08/26/19 07:49 Date Exam was Performed: 08/26/19 Time Exam was Performed: 19:13 - Problem List & Annotations (1) T12 compression fracture SNOMED Code(s): 540644235 Code(s): S22.080A - WEDGE COMPRESSION FRACTURE OF T11-T12 VERTEBRA, INIT Status: Acute Priority: High Current Visit: Yes Qualifiers: Encounter type: initial encounter Qualified Code(s): S22.080A - Wedge compression fracture of T11-T12 vertebra, initial encounter for closed fracture - Problem List Review Problem List Initiated/Reviewed/Updated: Yes - My Orders Last 24 Hours: My Active Orders 08/28/19 13:20 Thoracic Spine Comp wo Cont [MR] Routine - Assessment Assessment:: T12 Compression Fracture - Plan Plan:: Patient reports ongoing pain in back. States injections for pain help for short time. States has most pain with getting in and out of bed. When lying flat on back, less pain. Was noted to have new T12 compression fracture on xray , directly above recent L1 compression fracture. Had vertebroplasty with relief of the pain. He unfortunately developed a hematoma after that and was transferred to [facility]. Relates was hard to tell difference between that pain and the development of this but was not getting relief with pain meds at home. Did see Scottie Dent in clinic yesterday, had returned home but couldn't transfer or get out of bed without severe pain so returned back to hospital. Admitted last evening. Does have vertebral tenderness in the thoracic region. Down for CT scan of thoracic spine today. Will continue with IV and/or oral pain meds. Await results and determine if candidate again for vertebroplasty. Is currently on Coumadin, INR therapeutic at this time. 08-26-19 Patient is tolerating pain better today. Getting in and out of bed and ambulating. Does still require pain meds to tolerate activity. CT scan was done of thoracic spine, does show compression fracture but unable to see the full detail or amount of compression. Is working with PT. Blood pressure stable. Patient did have Dexa scan in July, does show osteoporosis. Patient had previously refused Prolia, taking Calcium as was worried about side effects Will plan for MRI on Saturday. Continue pain meds and PT.
[2019-08-26] MEDS: Latanoprost 0.005% Ophth Soln 2.5 ML Bottle EYELF SCH (20:03)
[2019-08-26] MEDS: Acetaminophen/HYDROcodone 325-5 MG Tab PO PRN (21:52)
[2019-08-27] MEDS: Gabapentin 100 MG Cap PO SCH ×3 (07:19→20:12)
[2019-08-27] MEDS: Polyethylene Glycol 3350 Powder 17 GM Packet PO SCH (07:19)
[2019-08-27] MEDS: atorvaSTATin 20 MG Tab PO SCH (07:19)
[2019-08-27] MEDS: Ferrous Sulfate 324 MG Tab.EC PO SCH (07:19)
[2019-08-27] MEDS: Metoprolol Succinate 25 MG Tab.ER PO SCH (07:20)
[2019-08-27] MEDS: Lisinopril 10 MG Tab PO SCH (07:20)
[2019-08-27] MEDS: Pantoprazole 40 MG Tab.CR PO SCH (07:20)
[2019-08-27] MEDS: Levothyroxine 100 MCG Tab PO SCH (07:20)
[2019-08-27] MEDS: Sertraline 25 MG Tab PO SCH (07:21)
[2019-08-27] MEDS: Acetaminophen 325 MG Tab PO SCH ×3 (07:21→20:12)
[2019-08-27] MEDS: Timolol Maleate 0.5% Ophth Soln 5 ML Bottle EYEBOTH SCH (07:22)
[2019-08-27] MEDS: Latanoprost 0.005% Ophth Soln 2.5 ML Bottle EYELF SCH (20:14)
--- NOTE | 2019-08-27 21:27 | PCM.PN ---
- General Info Date of Service: 08/27/19 Admission Dx/Problem (Free Text): T12 compression fracture Functional Status: Reports: Pain Controlled, Tolerating Diet, Ambulating - Review of Systems General: Reports: Weakness, Fatigue. Denies: Fever HEENT: Reports: No Symptoms Pulmonary: Denies: Shortness of Breath, Cough Cardiovascular: Denies: Chest Pain, Edema, Lightheadedness Gastrointestinal: Denies: Abdominal Pain, Nausea, Vomiting Genitourinary: Reports: No Symptoms Musculoskeletal: Reports: Back Pain Skin: Reports: No Symptoms Neurological: Reports: Weakness Psychiatric: Reports: No Symptoms - Patient Data Vitals - Most Recent: Last Vital Signs Temp 99.6 F 08/27/19 20:00 Pulse 62 08/27/19 20:00 Resp 20 08/27/19 20:00 BP 115/44 L 08/27/19 20:00 Pulse Ox 98 08/27/19 20:00 Weight - Most Recent: 176 lb 9.6 oz Lab Results Last 24 Hours: Laboratory Results - last 24 hr 08/27/19 Range/Units 06:50 PT 17.1 H (9.7-12.3) SEC INR 1.71 H (0.92-1.18) Med Orders - Current: Current Medications Acetaminophen (Tylenol) 650 mg PO TID [facility] Last Admin: 08/27/19 20:12 Dose: 650 mg Hydrocodone Bitart/Acetaminophen ([place] 325-5 Mg) 1 - 2 tab PO Q4H PRN PRN Reason: Pain (moderate 4-6) Last Admin: 08/26/19 21:52 Dose: 2 tab Atorvastatin Calcium (Lipitor) 40 mg PO DAILY [facility] Last Admin: 08/27/19 07:19 Dose: 40 mg Diazepam (Valium.) 5 mg PO TID PRN PRN Reason: Spasms Last Admin: 08/25/19 14:57 Dose: 5 mg Fentanyl (Sublimaze) 25 - 50 mcg IVPUSH Q2H PRN PRN Reason: Pain Last Admin: 08/26/19 07:58 Dose: 50 mcg Ferrous Sulfate (Ferrous Sulfate) 324 mg PO DAILY [facility] Last Admin: 08/27/19 07:19 Dose: 324 mg Gabapentin (Neurontin) 100 mg PO TID [facility] Last Admin: 08/27/19 20:12 Dose: 100 mg Latanoprost (Xalatan 0.005% Ophth Soln) 0 ml EYELF BEDTIME [facility] Last Admin: 08/27/19 20:14 Dose: 1 drop Levothyroxine Sodium (Synthroid) 100 mcg PO DAILY [facility] Last Admin: 08/27/19 07:20 Dose: 100 mcg Lisinopril (Prinivil) 10 mg PO DAILY [facility] Last Admin: 08/27/19 07:20 Dose: 10 mg Metoprolol Succinate (Toprol Xl) 50 mg PO DAILY [facility] Last Admin: 08/27/19 07:20 Dose: 50 mg Pantoprazole Sodium (Protonix) 40 mg PO DAILY [facility] Last Admin: 08/27/19 07:20 Dose: 40 mg Polyethylene Glycol (Miralax) 17 gm PO DAILY [facility] Last Admin: 08/27/19 07:19 Dose: 17 gm Sertraline HCl (Zoloft) 50 mg PO DAILY [facility] Last Admin: 08/27/19 07:21 Dose: 50 mg Sodium Chloride (Saline Flush) 10 ml FLUSH ASDIRECTED PRN PRN Reason: Keep Vein Open Timolol Maleate (Timoptic 0.5% Ophth Soln) 0 ml EYEBOTH DAILY [facility] Last Admin: 08/27/19 07:22 Dose: 1 ml Warfarin Sodium (Coumadin) 1.5 mg PO DAILY@1200 [facility] Last Admin: 08/27/19 12:07 Dose: 1.5 mg - Exam General: Alert, Oriented HEENT: Mucous Membr. Moist/[place] Neck: Supple Lungs: Clear to Auscultation, Normal Respiratory Effort Cardiovascular: Regular Rate, Regular Rhythm GI/Abdominal Exam: Normal Bowel Sounds, Soft, Non-Tender Back Exam: Normal Inspection, Vertebral Tenderness Extremities: Normal Inspection, No Pedal Edema Skin: Warm, Dry Neurological: No New Focal Deficit Sepsis Event Note - Evaluation Sepsis Screening Result: No Definite Risk - Focused Exam Vital Signs: Vital Signs Temp Pulse Resp BP Pulse Ox 08/27/19 20:00 99.6 F 62 20 115/44 L 98 Date Exam was Performed: 08/27/19 Time Exam was Performed: 21:22 - Problem List & Annotations (1) T12 compression fracture SNOMED Code(s): 842790743 Code(s): S22.080A - WEDGE COMPRESSION FRACTURE OF T11-T12 VERTEBRA, INIT Status: Acute Priority: High Current Visit: Yes Qualifiers: Encounter type: initial encounter Qualified Code(s): S22.080A - Wedge compression fracture of T11-T12 vertebra, initial encounter for closed fracture - Problem List Review Problem List Initiated/Reviewed/Updated: Yes - My Orders Last 24 Hours: My Active Orders 08/27/19 12:00 Warfarin [Coumadin] 1.5 mg PO DAILY@1200 08/28/19 14:15 Thoracic Spine Comp wo Cont [MR] Routine - Assessment Assessment:: T12 Compression Fracture - Plan Plan:: Patient reports ongoing pain in back. States injections for pain help for short time. States has most pain with getting in and out of bed. When lying flat on back, less pain. Was noted to have new T12 compression fracture on xray , directly above recent L1 compression fracture. Had vertebroplasty with relief of the pain. He unfortunately developed a hematoma after that and was transferred to [facility]. Relates was hard to tell difference between that pain and the development of this but was not getting relief with pain meds at home. Did see Scottie Dent in clinic yesterday, had returned home but couldn't transfer or get out of bed without severe pain so returned back to hospital. Admitted last evening. Does have vertebral tenderness in the thoracic region. Down for CT scan of thoracic spine today. Will continue with IV and/or oral pain meds. Await results and determine if candidate again for vertebroplasty. Is currently on Coumadin, INR therapeutic at this time. 08-26-19 Patient is tolerating pain better today. Getting in and out of bed and ambulating. Does still require pain meds to tolerate activity. CT scan was done of thoracic spine, does show compression fracture but unable to see the full detail or amount of compression. Is working with PT. Blood pressure stable. Patient did have Dexa scan in July, does show osteoporosis. Patient had previously refused Prolia, taking Calcium as was worried about side effects Will plan for MRI on Saturday. Continue pain meds and PT. 08-27-2019 Patient states is doing much better. Is getting around "smoother". Less trouble with transfers. Did receive an IV dose of Fentanyl this am in addition to oral pain meds. Is still ambulating with staff and PT. Discussed further issues with Osteoporosis. did now discuss again with his sister and is willing to proceed with Prolia once discharged. Plan is to await MRI tomorrow to determine loss of height of vertebrae to determine if candidate for vertebroplasty as this provided him with much relief with L1 compression fracture. Encouraged to use oral pain meds. Continue with PT. Plan for discharge tomorrow after MRI.
[2019-08-28] MEDS: Acetaminophen/HYDROcodone 325-5 MG Tab PO PRN (03:51)
[2019-08-28] MEDS: atorvaSTATin 20 MG Tab PO SCH (08:09)
[2019-08-28] MEDS: Polyethylene Glycol 3350 Powder 17 GM Packet PO SCH (08:09)
[2019-08-28] MEDS: Lisinopril 10 MG Tab PO SCH (08:09)
[2019-08-28] MEDS: Levothyroxine 100 MCG Tab PO SCH (08:09)
[2019-08-28] MEDS: Pantoprazole 40 MG Tab.CR PO SCH (08:09)
[2019-08-28] MEDS: Sertraline 25 MG Tab PO SCH (08:10)
[2019-08-28] MEDS: Ferrous Sulfate 324 MG Tab.EC PO SCH (08:11)
[2019-08-28] MEDS: Metoprolol Succinate 25 MG Tab.ER PO SCH (08:11)
[2019-08-28] MEDS: Gabapentin 100 MG Cap PO SCH ×2 (08:11→13:18)
[2019-08-28] MEDS: Acetaminophen 325 MG Tab PO SCH ×2 (08:12→13:18)
[2019-08-28] MEDS: Timolol Maleate 0.5% Ophth Soln 5 ML Bottle EYEBOTH SCH (08:16)
[2019-08-28 08:17] VITALS: BP 113/47; PULSE 58
== END 2019-08-28 15:30 | disposition home or self-care (01) | DRG 552 ==
LOC: CC.MS 20:43 → UNDOADMIN 20:43 → CC.MS 21:05
PROVIDERS: ADMIT Physician Assistant Medical; ATTEND Family Medicine
DX: S22.080A Wedge compression fracture of T11-T12 vertebra, initial encounter for closed fracture (principal); Q87.40 Marfan syndrome, unspecified; M70.11 Bursitis, right hand; N40.0 Benign prostatic hyperplasia without lower urinary tract symptoms; H91.90 Unspecified hearing loss, unspecified ear; E78.5 Hyperlipidemia, unspecified; I10 Essential (primary) hypertension; M81.0 Age-related osteoporosis without current pathological fracture; K21.9 Gastro-esophageal reflux disease without esophagitis; D64.9 Anemia, unspecified; M19.90 Unspecified osteoarthritis, unspecified site; I65.22 Occlusion and stenosis of left carotid artery; I48.91 Unspecified atrial fibrillation; I50.9 Heart failure, unspecified; K59.00 Constipation, unspecified; I25.10 Atherosclerotic heart disease of native coronary artery without angina pectoris; F32.9 Major depressive disorder, single episode, unspecified; I11.0 Hypertensive heart disease with heart failure; M10.9 Gout, unspecified; E03.9 Hypothyroidism, unspecified; I34.0 Nonrheumatic mitral (valve) insufficiency; E55.9 Vitamin D deficiency, unspecified; S32.019D Unspecified fracture of first lumbar vertebra, subsequent encounter for fracture with routine healing; S30.0XXD Contusion of lower back and pelvis, subsequent encounter; Z86.73 Personal history of transient ischemic attack (TIA), and cerebral infarction without residual deficits; Z98.49 Cataract extraction status, unspecified eye; Z98.890 Other specified postprocedural states; Z95.2 Presence of prosthetic heart valve; Z90.89 Acquired absence of other organs; Z87.891 Personal history of nicotine dependence; Z79.899 Other long term (current) drug therapy; Z79.01 Long term (current) use of anticoagulants
CPT/HCPCS: 36415; 72128; 72146; 80048; 85025; 85610; 97110-GP; 97161-GP; A9270-GY; J3010

== ENCOUNTER 2020-04-29 14:07 | Observation (INO) | payer MEDICARE, BC ==
[2020-04-29 14:38] LABS: CHLORIDE,CL 103 mEq/L (98-106); SODIUM,NA 135 mEq/L (136-145)
[2020-04-29] MEDS ORDERED: Temazepam 15 MG Cap PO PRN (15:25)
[2020-04-29] MEDS ORDERED: Acetaminophen 500 MG Tab PO PRN (15:30)
[2020-04-29] MEDS ORDERED: Acetaminophen/HYDROcodone 325-5 MG Tab PO PRN (15:30)
[2020-04-29] MEDS ORDERED: Iron Sucrose Complex 100 MG/5 ML SDV IVPUSH ONE (15:32)
[2020-04-29] MEDS: Pantoprazole 40 MG Vial IVPUSH SCH ×2 (16:07→21:12)
[2020-04-29] MEDS ORDERED: Latanoprost 0.005% Ophth Soln 2.5 ML Bottle EYELF SCH (20:00)
[2020-04-29] MEDS ORDERED: Gabapentin 100 MG Cap PO SCH (20:00)
[2020-04-29] MEDS ORDERED: MIRTAZAPINE 15 MG PO SCH (20:00)
[2020-04-29] MEDS ORDERED: Ferrous Sulfate 324 MG Tab.EC PO SCH (21:00)
[2020-04-29] MEDS ORDERED: Sodium Chloride 0.9% 1,000 ML IV ONE (22:12)
[2020-04-29] MEDS ORDERED: Pantoprazole 40 MG Vial IVPUSH STA (22:12)
--- NOTE | 2020-04-29 22:21 | PCM.DCSUM1 ---
Discharge Summary - Hospital Course HPI Initial Comments: This patient was seen in clinic this afternoon and admitted. This patient reports that for the past "several", few days he has been having lightheaded, dizzy, falling to the floor with difficulty getting up, and dark black stools. Patient reports that this is the reason he was seen in the clinic today. The patient reports that he has had GI bleeds before in the past and has had blood transfusions before in the past. The patient reports that he does still feel generally weak tonight, but not lightheaded since he is just laying around. I was called by Catalina lindo about this patient with a critical hgb result. The lab value at 9pm was 7.8, whereas at 4pm was 8.7. I have reviewed patient lab history and he has been anywhere from 9-13. I asked [facility] lab to do a type and screen and prepare for transfusion. However, this patient has documented history in lab of an antibody. Therefore, lab would need to send a tube for reference lab for antibody ID. This is a send out and can not be obtained tonight, and possibly not this weekend per lab. With the patient lowering hgb, aneurysm can not be excluded. Though, the patient is currently and has been entire admission so far hemodynamically stable without change in symptoms. Patient GFR, BUN,. CR are elevated and can not contrast scan at this time. I do not have the ability to US for AAA due to lack of staff public relations intern at this time for this ability. I called [facility] and spoke to Dr. Posey hospitalist. He has requested give an additional Protonix 40mg IV for total of 80mg and fluids. NS fluids ordered. I will transfer this patient to [facility]. I have discussed this with the patient and he has agreed to transfer. The risk vs benefits of the transfer are: Risk is mvc, , bleeding out, worsening of condition. The benefits of transfer are higher level of care, blood available, GI consult, US capabilities for aneurysm leak r/o. The risks of staying in [place] is no blood, no scope ability on weekend, no US, , worsening of condition. The benefits of staying in [place] is close to home. - Discharge Data Discharge Date: 04/29/20 Discharge Disposition: Home, Self-Care 01 Condition: Good - Referral to Home Health Primary Care Physician: Ruth Eller NP - Discharge Plan *PRESCRIPTION DRUG MONITORING PROGRAM REVIEWED*: Not Applicable *COPY OF PRESCRIPTION DRUG MONITORING REPORT IN PATIENT DEEPTI: Not Applicable Home Medications: Home Meds Acetaminophen [Tylenol Extra Strength] 1,000 mg PO Q6H PRN 04/26/15 [History] Levothyroxine Sodium [Synthroid] 100 mcg PO DAILY 04/26/15 [History] Metoprolol Succinate [Toprol XL 50mg] 50 mg PO DAILY 04/26/15 [History] Mirtazapine [Remeron] 15 mg PO BEDTIME 04/26/15 [History] atorvaSTATin Calcium [Atorvastatin Calcium] 40 mg PO DAILY 04/26/15 [History] Sertraline HCl 50 mg PO DAILY 03/04/17 [History] Pantoprazole Sodium [Protonix] 40 mg PO DAILY 03/07/17 [History] Clopidogrel [Plavix] 75 mg PO DAILY 01/24/18 [History] Ferrous Sulfate 325 mg PO DAILY 01/24/18 [History] Latanoprost [Xalatan 0.005% Ophth Soln] 1 drop EYELF BEDTIME 01/24/18 [History] Lisinopril 10 mg PO DAILY 05/25/19 [History] Warfarin [Coumadin] 1.5 mg PO DAILY #30 tab 05/27/19 [Rx] Acetaminophen/HYDROcodone [Dover 325-5 MG] 1 - 2 tab PO Q4H PRN #45 tablet 07/10/19 [Rx] timoloL maleate [Timoptic 0.5% Ophth Soln] 1 drop EYEBOTH DAILY 08/24/19 [History] Cholecalciferol (Vitamin D3) [Vitamin D3] 2,000 unit PO DAILY 04/29/20 [History] - Discharge Summary/Plan Comment DC Time >30 min.: No - General Info Date of Service: 04/29/20 Functional Status: Reports: Pain Controlled, Tolerating Diet, Urinating - Review of Systems General: Reports: Weakness (generalized), Fatigue HEENT: Reports: No Symptoms Pulmonary: Reports: No Symptoms. Denies: Shortness of Breath Cardiovascular: Reports: Lightheadedness. Denies: Chest Pain, Palpitations, Dyspnea on Exertion, Edema Gastrointestinal: Reports: No Symptoms. Denies: Abdominal Pain Genitourinary: Reports: No Symptoms Musculoskeletal: Reports: No Symptoms Skin: Reports: No Symptoms Neurological: Reports: Dizziness. Denies: Confusion, Headache, Seizure, Syncope, Trouble Speaking, Difficulty Walking, Weakness Psychiatric: Reports: No Symptoms - Patient Data Vitals - Most Recent: Last Vital Signs Temp 98.5 F 04/29/20 20:00 Pulse 54 L 04/29/20 20:00 Resp 16 04/29/20 20:00 BP 113/51 L 04/29/20 20:00 Pulse Ox 97 04/29/20 20:00 Weight - Most Recent: 166 lb 12.8 oz Lab Results - Last 24 hrs: Laboratory Results - last 24 hr 04/29/20 04/29/20 04/29/20 Range/Units 14:15 14:15 14:15 WBC 7.2 (5.0-10.0) 10^3/uL RBC 2.91 L (4.50-6.00) 10^6/uL Hgb 8.7 L (14.0-18.0) g/dL Hct 27.5 L (40.0-54.0) % MCV 94.5 H (82.0-94.0) fL MCH 29.9 (27.0-32.0) pg MCHC 31.6 L (33.0-38.0) g/dL RDW Coeff of Deborah 13.8 (11.0-15.0) % Plt Count 166 (150-400) 10^3/uL Neut % (Auto) 77.5 (35-85) % Lymph % (Auto) 9.5 L (10-55) % [place] % (Auto) 10.0 (0-16) % Eos % (Auto) 2.6 (0-5) % Baso % (Auto) 0.4 (0-3) % Neut # (Auto) 5.60 (1.80-7.00) 10^3/uL Lymph # (Auto) 0.69 L (1.00-4.80) 10^3/uL [place] # (Auto) 0.72 (0.00-0.80) 10^3/uL Eos # (Auto) 0.19 (0.00-0.45) 10^3/uL Baso # (Auto) 0.03 10^3/uL PT 34.8 H (9.7-12.3) SEC INR 3.49 H (0.92-1.18) Sodium 135 L (136-145) mEq/L Potassium 5.0 (3.5-5.0) mEq/L Chloride 103 (98-106) mEq/L Carbon Dioxide 26 (21-32) mmol/L BUN 67 H D (7-18) mg/dL Creatinine 2.0 H (0.7-1.3) mg/dL Est Cr Clr Drug Dosing TNP Estimated GFR (MDRD) 32 L (>=60) mL/min Glucose 127 H (75-99) mg/dL Calcium 8.6 (8.4-10.1) mg/dL Creatine Kinase 29 L (35-232) U/L Troponin I < 0.017 (0.00-0.06) ng/mL C-Reactive Protein 0.5 (0.2-0.8) mg/dL Urine Color (YELLOW) Urine Appearance (CLEAR) Urine pH (4.5-8.0) Ur Specific [place] (1.003-1.020) Urine Protein (NEGATIVE) mg/dL Urine Glucose (UA) (NEGATIVE) mg/dL Urine Ketones (NEGATIVE) mg/dL Urine Occult Blood (NEGATIVE) Urine Nitrite (NEGATIVE) Urine Bilirubin (NEGATIVE) Urine Urobilinogen (0.2-1.0) EU/dL Ur Leukocyte Esterase (NEGATIVE) 04/29/20 04/29/20 Range/Units 14:15 21:00 WBC (5.0-10.0) 10^3/uL RBC (4.50-6.00) 10^6/uL Hgb 7.8 L* (14.0-18.0) g/dL Hct 24.5 L (40.0-54.0) % MCV (82.0-94.0) fL MCH (27.0-32.0) pg MCHC (33.0-38.0) g/dL RDW Coeff of Deborah (11.0-15.0) % Plt Count (150-400) 10^3/uL Neut % (Auto) (35-85) % Lymph % (Auto) (10-55) % [place] % (Auto) (0-16) % Eos % (Auto) (0-5) % Baso % (Auto) (0-3) % Neut # (Auto) (1.80-7.00) 10^3/uL Lymph # (Auto) (1.00-4.80) 10^3/uL [place] # (Auto) (0.00-0.80) 10^3/uL Eos # (Auto) (0.00-0.45) 10^3/uL Baso # (Auto) 10^3/uL PT (9.7-12.3) SEC INR (0.92-1.18) Sodium (136-145) mEq/L Potassium (3.5-5.0) mEq/L Chloride (98-106) mEq/L Carbon Dioxide (21-32) mmol/L BUN (7-18) mg/dL Creatinine (0.7-1.3) mg/dL Est Cr Clr Drug Dosing Estimated GFR (MDRD) (>=60) mL/min Glucose (75-99) mg/dL Calcium (8.4-10.1) mg/dL Creatine Kinase (35-232) U/L Troponin I (0.00-0.06) ng/mL C-Reactive Protein (0.2-0.8) mg/dL Urine Color Yellow (YELLOW) Urine Appearance Clear (CLEAR) Urine pH 5.0 (4.5-8.0) Ur Specific [place] 1.015 (1.003-1.020) Urine Protein Negative (NEGATIVE) mg/dL Urine Glucose (UA) Negative (NEGATIVE) mg/dL Urine Ketones Negative (NEGATIVE) mg/dL Urine Occult Blood Negative (NEGATIVE) Urine Nitrite Negative (NEGATIVE) Urine Bilirubin Negative (NEGATIVE) Urine Urobilinogen 0.2 (0.2-1.0) EU/dL Ur Leukocyte Esterase Negative (NEGATIVE) Med Orders - Current: Current Medications Acetaminophen (Tylenol Extra Strength) 1,000 mg PO Q6H PRN PRN Reason: Pain Hydrocodone Bitart/Acetaminophen (D[place] 325-5 Mg) 1 - 2 tab PO Q4H PRN PRN Reason: Pain (moderate 4-6) Ferrous Sulfate (Ferrous Sulfate) 324 mg PO DAILY [facility] Last Admin: 04/29/20 21:16 Dose: 324 mg Documented by: Gabapentin (Neurontin) 100 mg PO TID [facility] Last Admin: 04/29/20 21:11 Dose: 100 mg Documented by: Sodium Chloride (Normal Saline) 1,000 mls @ 500 mls/hr IV .BOLUS ONE Stop: 04/30/20 00:11 Latanoprost (Xalatan 0.005% Ophth Soln) 0 ml EYELF BEDTIME [facility] Last Admin: 04/29/20 21:15 Dose: 1 drop Documented by: Levothyroxine Sodium (Synthroid) 100 mcg PO DAILY [facility] Mirtazapine (Remeron) 15 mg PO BEDTIME [facility] Last Admin: 04/29/20 21:14 Dose: 15 mg Documented by: Atorvastatin Calcium (40 MgPt Own) 40 mg PO DAILY [facility] Metoprolol Succinate [Toprol Xl 50mg] 50 MgPt Own 50 mg PO DAILY [facility] Sertraline Hcl 50 Mg (Pt Own) 50 mg PO DAILY [facility] Pantoprazole Sodium (Protonix Iv) 40 mg IVPUSH BID [facility] Last Admin: 04/29/20 21:12 Dose: 40 mg Documented by: Pantoprazole Sodium (Protonix Iv) 40 mg IVPUSH NOW STA Stop: 04/29/20 22:13 Polyethylene Glycol (Miralax) 17 gm PO DAILY [facility] Temazepam (Restoril) 15 mg PO BEDTIME PRN PRN Reason: Sleep Timolol Maleate (Timoptic 0.5% Ophth Soln) 0 ml EYEBOTH DAILY [facility] Discontinued Medications Iron Sucrose (Venofer) 100 mg IVPUSH ONETIME ONE Stop: 04/29/20 15:33 Last Admin: 04/29/20 15:56 Dose: 100 mg Documented by: - Exam General: Reports: Alert, Oriented, Cooperative, No Acute Distress HEENT: Reports: Other (pallor) Neck: Reports: Supple, Trachea Midline Lungs: Reports: Clear to Auscultation, Normal Respiratory Effort Cardiovascular: Reports: Bradycardia (54) GI/Abdominal Exam: Normal Bowel Sounds, Soft, Non-Tender, No Distention Back Exam: Reports: Normal Inspection Extremities: Normal Inspection Skin: Reports: Warm, Dry, Intact Psy/Mental Status: Reports: Alert, Normal Affect, Normal Mood EKG INTERPRETATION Time: 21:57 Rhythm: Other (Christophe) Rate (Beats/Min): 51 QRS: LBBB Comparison: No Change *Q Meaningful Use (DIS) - VTE *Q VTE Mechanical Contraindications *Q: Tx/Proc Refused byPt
[2020-04-29 22:59] VITALS: BP 121/59; PULSE 50
[2020-04-30] MEDS ORDERED: ATORVASTATIN CALCIUM 40 MG PO SCH (08:00)
[2020-04-30] MEDS ORDERED: TIMOLOL MALEATE 0.5% EYEBOTH SCH (08:00)
[2020-04-30] MEDS ORDERED: Polyethylene Glycol 3350 Powder 17 GM Packet PO SCH (08:00)
[2020-04-30] MEDS ORDERED: SERTRALINE HCL 50 MG PO SCH (08:00)
[2020-04-30] MEDS ORDERED: METOPROLOL SUCCINATE 50 MG PO SCH (08:00)
[2020-04-30] MEDS ORDERED: Levothyroxine 100 MCG Tab**PT OWN PO SCH (08:00)
== END 2020-04-29 23:20 ==
LOC: CC.FCMC 14:07 → UNDOADMOB 15:12 → CC.MS 15:12
PROVIDERS: ADMIT Nurse Practitioner Family; ATTEND Family Medicine
DX: K92.2 Gastrointestinal hemorrhage, unspecified (principal); I11.0 Hypertensive heart disease with heart failure; I50.9 Heart failure, unspecified; I48.91 Unspecified atrial fibrillation; E78.5 Hyperlipidemia, unspecified; Z79.01 Long term (current) use of anticoagulants; Z79.899 Other long term (current) drug therapy; Z87.891 Personal history of nicotine dependence
CPT/HCPCS: 36415; 70450; 80048; 81003; 82550; 84484; 85014; 85018; 85025; 85610; 86140; 93005 ×2; 96361; 96374; 96375; 96376; A9270 ×4; C9113 ×3; G0378 ×2; J1756; J7030; 99235

== ENCOUNTER 2020-12-09 08:07 | Inpatient (IN) | payer MEDICARE, BC ==
[2020-12-09] MEDS ORDERED: Aspirin 81 MG Tab.Chew PO ONE (08:18)
[2020-12-09 08:44] LABS: PTT,PARTIAL THROMBOPLSTIN TIME 25.8 SEC (23.2-32.3)
[2020-12-09] MEDS ORDERED: Ondansetron 4 MG/2 ML SDV IV PRN (09:50)
[2020-12-09] MEDS ORDERED: Acetaminophen 325 MG Tab PO PRN ×2 (09:50)
[2020-12-09] MEDS: Sodium Chloride 0.9% 1,000 ML IV SCH (10:22)
[2020-12-09] MEDS: LORazepam 0.5 MG Tab PO PRN ×2 (10:46→19:00)
[2020-12-09] MEDS ORDERED: Docusate Sodium 100 MG Cap PO PRN (14:24)
--- NOTE | 2020-12-09 14:56 | EDM.PDOC ---
ED HPI GENERAL MEDICAL PROBLEM - General Chief Complaint: General Stated Complaint: SOB/FATIQUE Time Seen by Provider: 12/09/20 08:35 Source of Information: Reports: Patient, Family History Limitations: Reports: No Limitations - History of Present Illness INITIAL COMMENTS - FREE TEXT/NARRATIVE: Minoo is an 80 yo male who presents to the ED via private vehicle. Initially was going to be seen in the clinic today for weakness and not feeling well. He had an appointment but nursing staff sent him to the ED due to his symptoms. 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 He has been doing chemotherapy and feels as if he can't do it anymore. He states since starting the treatments he has no energy and recently finds himself unable to walk any distances. States he has been at home crawling around d/t the weakness. Patient was evaluated by Dr. Solis's office (oncology) yesterday. is present and states she asked if his chemo plan could be changed, which didn't sound like it could be done. They did proceed to give him IV fluids yesterday and thought initially it did help. ANGEL Ko at [facility] did discuss admission with him but he didn't want to be admitted in [place]. Dillon states he is short of breath and just doesn't have any appetite as well. Chest pain is on the right side and isn't constant, states it seems to come and go. States it is more of an ache at times and has been present for awhile now. States since starting treatment he seems to be getting worse. Feels the way he is living is no way to live. Hasn't been able to sleep and is requesting something to help him sleep. Patient denies any aggressive treatments. States if he is going to to just let him . Onset: Gradual Location: Reports: Generalized Chest Pain Score (Numeric/FACES): 4 - Related Data Allergies Allergy/AdvReac Type Severity Reaction Status Date / Time No Known Allergies Allergy Verified 12/09/20 08:48 Home Meds: Home Meds Levothyroxine Sodium [Synthroid] 100 mcg PO DAILY 04/26/15 [History] Metoprolol Succinate [Toprol XL 50mg] 25 mg PO DAILY 04/26/15 [History] Mirtazapine [Remeron] 15 mg PO BEDTIME 04/26/15 [History] atorvaSTATin Calcium [Atorvastatin Calcium] 40 mg PO DAILY 04/26/15 [History] Sertraline HCl 50 mg PO DAILY 03/04/17 [History] Pantoprazole Sodium [Protonix] 40 mg PO BID 03/07/17 [History] Latanoprost [Xalatan 0.005% Ophth Soln] 1 drop EYELF BEDTIME 01/24/18 [History] timoloL maleate [Timoptic 0.5% Ophth Soln] 1 drop EYEBOTH DAILY 08/24/19 [History] Cholecalciferol (Vitamin D3) [Vitamin D3] 2,000 unit PO DAILY 04/29/20 [History] Acetaminophen 650 mg PO Q4H PRN 10/07/20 [History] Aspirin 81 mg PO DAILY 10/07/20 [History] Denosumab [Prolia] 1 dose SQ ASDIRECTED 10/07/20 [History] Melatonin 6 mg PO BEDTIME 10/07/20 [History] Ondansetron [Ondansetron ODT] 4 mg PO QID PRN 10/07/20 [History] Past Medical History HEENT History: Reports: Glaucoma, Hard of Hearing Other HEENT History: blind in left eye Cardiovascular History: Reports: Aneurysm, High Cholesterol, Hypertension Gastrointestinal History: Reports: GERD Musculoskeletal History: Reports: Other (See Below) Other Musculoskeletal History: hx marfans; compression fx L1 Psychiatric History: Reports: Anxiety, Depression Endocrine/Metabolic History: Reports: Hypothyroidism Hematologic History: Reports: Anticoagulation Therapy Immunologic History: Reports: None Oncologic (Cancer) History: Reports: Lung, Malignant Melanoma Dermatologic History: Reports: Melanoma, Other (See Below) Other Dermatologic History: to R) foot - Infectious Disease History Infectious Disease History: Reports: Chicken Pox - Past Surgical History HEENT Surgical History: Reports: Cataract Surgery Cardiovascular Surgical History: Reports: Aneurysm, Valve Replacement, Other (See Below) Other Cardiovascular Surgeries/Procedures: Percutaneous repair of Mitral valve with deann clip device GI Surgical History: Reports: Cholecystectomy Endocrine Surgical History: Reports: None Oncologic Surgical History: Reports: Other (See Below) Other Oncologic Surgeries/Procedures: area biposied. Dermatological Surgical History: Reports: Skin Biopsy, Skin Graft Social & Family History - Family History Family Medical History: Unobtainable - Tobacco Use Tobacco Use Status *Q: Former Tobacco User Used Tobacco, but Quit: Yes Month/Year Tobacco Last Used: 35 - Caffeine Use Caffeine Use: Reports: Coffee Caffeine Use Comment: lots of coffee - Recreational Drug Use Recreational Drug Use: No ED ROS GENERAL - Review of Systems Review Of Systems: See Below Constitutional: Reports: Weakness, Fatigue, Decreased Appetite. Denies: Fever, Chills, Diaphoresis HEENT: Reports: No Symptoms Respiratory: Reports: Shortness of Breath, Pleuritic Chest Pain. Denies: Wheezing, Cough, Sputum Cardiovascular: Reports: Chest Pain, Dyspnea on Exertion. Denies: Blood Pressure Problem, Edema, Orthopnea, Syncope GI/Abdominal: Reports: No Symptoms : Reports: No Symptoms Musculoskeletal: Reports: Joint Pain, Muscle Stiffness Skin: Reports: Pallor Neurological: Reports: Difficulty Walking. Denies: Confusion, Dizziness, Headac he, Change in Speech ED EXAM, GENERAL - Physical Exam Exam: See Below Exam Limited By: No Limitations General Appearance: Alert, Mild Distress, Thin Ears: Normal External Exam, Normal Canal, Hearing Grossly Normal, Normal TMs Nose: Normal Inspection, Normal Mucosa, No Blood Throat/Mouth: Normal Inspection, Normal Lips, Normal Teeth, Normal Gums, Normal Oropharynx, Normal Voice, No Airway Compromise, Other (dry oral mucosa) Head: Atraumatic, Normocephalic Neck: Normal Inspection, Supple Respiratory/Chest: No Respiratory Distress, Lungs Clear, Decreased Breath Sounds (right) Cardiovascular: Regular Rate, Rhythm, No Edema, No Murmur GI/Abdominal: Normal Bowel Sounds, Soft, Non-Tender, No Distention Extremities: Normal Inspection, No Pedal Edema Neurological: Alert, Oriented, Normal Cognition, No Motor/Sensory Deficits Psychiatric: Normal Affect, Flat Affect Skin Exam: Cool, Pallor Course - Vital Signs Last Recorded V/S: Last Vital Signs Temp 97.7 F 12/09/20 15:52 Pulse 113 H 12/09/20 15:52 Resp 20 12/09/20 15:52 BP 118/42 L 12/09/20 15:52 Pulse Ox 97 12/09/20 15:52 - Orders/Labs/Meds Orders: Active Orders 24 hr Category Date Time Status Chest 2V [CR] Stat Exams 12/09/20 08:22 Taken Medication Orders Acetaminophen (Acetaminophen 325 Mg Tab) 650 mg PO Q4H PRN PRN Reason: Pain/Fever Aspirin (Aspirin 81 Mg Tab.Chew) 81 mg PO DAILY [facility] Atorvastatin Calcium (Atorvastatin 20 Mg Tab) 40 mg PO DAILY [facility] Docusate Sodium (Docusate Sodium 100 Mg Cap) 100 mg PO BID PRN PRN Reason: Constipation Sodium Chloride (Normal Saline) 1,000 mls @ 50 mls/hr IV ASDIRECTED DONNY Last Admin: 12/09/20 10:22 Dose: 50 mls/hr Documented by: YOANNA Latanoprost (Latanoprost 0.005% Ophth Soln 2.5 Ml Bottle) 0 ml EYELF BEDTIME [facility] Levothyroxine Sodium (Levothyroxine 100 Mcg Tab) 100 mcg PO ACBREAKFAST [facility] Lorazepam (Lorazepam 0.5 Mg Tab) 0.5 mg PO Q8H PRN PRN Reason: Anxiety Last Admin: 12/09/20 10:46 Dose: 0.5 mg Documented by: YOANNA Metoprolol Succinate (Metoprolol Succinate 25 Mg Tab.Er) 25 mg PO DAILY [facility] Mirtazapine (Mirtazapine 15 Mg Tab) 15 mg PO BEDTIME [facility] Morphine Sulfate (Morphine 4 Mg/Ml Vial) 2 - 4 mg IVPUSH Q4H PRN PRN Reason: Pain Last Admin: 12/09/20 16:19 Dose: 2 mg Documented by: Admin: 12/09/20 15:42 Dose: 2 mg Documented by: TJ Ondansetron HCl (Ondansetron 4 Mg/2 Ml Sdv) 4 mg IV Q4H PRN PRN Reason: Nausea/Vomiting Pantoprazole Sodium (Pantoprazole 40 Mg Tab.Cr) 40 mg PO BID [facility] Sertraline HCl (Sertraline 25 Mg Tab) 50 mg PO DAILY [facility] Timolol Maleate (Timolol Maleate 0.5% Ophth Soln 5 Ml Bottle) 0 ml EYEBOTH DAILY [facility] Labs: Laboratory Tests 12/09/20 12/09/20 12/09/20 Range/Units 08:21 08:21 08:21 WBC 8.1 (5.0-10.0) 10^3/uL RBC 3.80 L (4.50-6.00) 10^6/uL Hgb 10.0 L (14.0-18.0) g/dL Hct 33.0 L (40.0-54.0) % MCV 86.8 (82.0-94.0) fL MCH 26.3 L (27.0-32.0) pg MCHC 30.3 L (33.0-38.0) g/dL RDW Coeff of Deborah 17.7 H (11.0-15.0) % Plt Count 291 (150-400) 10^3/uL Neut % (Auto) 82.6 (35-85) % Lymph % (Auto) 5.6 L (10-55) % [place] % (Auto) 10.7 (0-16) % Eos % (Auto) 1.0 (0-5) % Baso % (Auto) 0.1 (0-3) % Neut # (Auto) 6.67 (1.80-7.00) 10^3/uL Lymph # (Auto) 0.45 L (1.00-4.80) 10^3/uL [place] # (Auto) 0.86 H (0.00-0.80) 10^3/uL Eos # (Auto) 0.08 (0.00-0.45) 10^3/uL Baso # (Auto) 0.01 10^3/uL PT 12.2 (9.7-12.3) SEC INR 1.13 (0.92-1.18) APTT 25.8 (23.2-32.3) SEC Sodium 140 (136-145) mEq/L Potassium 4.5 (3.5-5.0) mEq/L Chloride 104 (98-106) mEq/L Carbon Dioxide 26 (21-32) mmol/L BUN 36 H (7-18) mg/dL Creatinine 1.7 H (0.7-1.3) mg/dL Est Cr Clr Drug Dosing 33.23 mL/min Estimated GFR (MDRD) 39 L (>=60) mL/min Glucose 91 (75-99) mg/dL Calcium 8.6 (8.4-10.1) mg/dL Magnesium 2.2 (1.8-2.4) mg/dL Total Bilirubin 0.4 (0.0-1.0) mg/dL AST 20 (15-37) U/L ALT 21 (12-78) U/L Alkaline Phosphatase 89 (46-116) U/L Lactate Dehydrogenase 176 (100-190) U/L Creatine Kinase 70 (35-232) U/L Troponin I 0.169 H (0.00-0.06) ng/mL Total Protein 6.2 L (6.4-8.2) g/dL Albumin 2.4 L (3.4-5.0) g/dL Lipase 93 (73-393) U/L Urine Color (YELLOW) Urine Appearance (CLEAR) Urine pH (4.5-8.0) Ur Specific [place] (1.003-1.020) Urine Protein (NEGATIVE) mg/dL Urine Glucose (UA) (NEGATIVE) mg/dL Urine Ketones (NEGATIVE) mg/dL Urine Occult Blood (NEGATIVE) Urine Nitrite (NEGATIVE) Urine Bilirubin (NEGATIVE) Urine Urobilinogen (0.2-1.0) EU/dL Ur Leukocyte Esterase (NEGATIVE) Urine RBC (0-5) /HPF Urine WBC (0-5) /HPF 12/09/20 Range/Units 08:22 WBC (5.0-10.0) 10^3/uL RBC (4.50-6.00) 10^6/uL Hgb (14.0-18.0) g/dL Hct (40.0-54.0) % MCV (82.0-94.0) fL MCH (27.0-32.0) pg MCHC (33.0-38.0) g/dL RDW Coeff of Deborah (11.0-15.0) % Plt Count (150-400) 10^3/uL Neut % (Auto) (35-85) % Lymph % (Auto) (10-55) % [place] % (Auto) (0-16) % Eos % (Auto) (0-5) % Baso % (Auto) (0-3) % Neut # (Auto) (1.80-7.00) 10^3/uL Lymph # (Auto) (1.00-4.80) 10^3/uL [place] # (Auto) (0.00-0.80) 10^3/uL Eos # (Auto) (0.00-0.45) 10^3/uL Baso # (Auto) 10^3/uL PT (9.7-12.3) SEC INR (0.92-1.18) APTT (23.2-32.3) SEC Sodium (136-145) mEq/L Potassium (3.5-5.0) mEq/L Chloride (98-106) mEq/L Carbon Dioxide (21-32) mmol/L BUN (7-18) mg/dL Creatinine (0.7-1.3) mg/dL Est Cr Clr Drug Dosing mL/min Estimated GFR (MDRD) (>=60) mL/min Glucose (75-99) mg/dL Calcium (8.4-10.1) mg/dL Magnesium (1.8-2.4) mg/dL Total Bilirubin (0.0-1.0) mg/dL AST (15-37) U/L ALT (12-78) U/L Alkaline Phosphatase (46-116) U/L Lactate Dehydrogenase (100-190) U/L Creatine Kinase (35-232) U/L Troponin I (0.00-0.06) ng/mL Total Protein (6.4-8.2) g/dL Albumin (3.4-5.0) g/dL Lipase (73-393) U/L Urine Color Yellow (YELLOW) Urine Appearance Clear (CLEAR) Urine pH 5.5 (4.5-8.0) Ur Specific [place] 1.025 H (1.003-1.020) Urine Protein 30 H (NEGATIVE) mg/dL Urine Glucose (UA) Negative (NEGATIVE) mg/dL Urine Ketones Trace H (NEGATIVE) mg/dL Urine Occult Blood Negative (NEGATIVE) Urine Nitrite Negative (NEGATIVE) Urine Bilirubin Negative (NEGATIVE) Urine Urobilinogen 0.2 (0.2-1.0) EU/dL Ur Leukocyte Esterase Negative (NEGATIVE) Urine RBC Not seen (0-5) /HPF Urine WBC Not seen (0-5) /HPF Meds: Medications Generic Name Dose Route Start Last Admin Trade Name Freq PRN Reason Stop Dose Admin Acetaminophen 650 mg 12/09/20 09:50 Acetaminophen 325 Mg Tab PO Q4H PRN Pain/Fever Aspirin 81 mg 12/10/20 08:00 Aspirin 81 Mg Tab.Chew PO DAILY [facility] Atorvastatin Calcium 40 mg 12/10/20 08:00 Atorvastatin 20 Mg Tab PO DAILY [facility] Docusate Sodium 100 mg 12/09/20 14:24 Docusate Sodium 100 Mg Cap PO BID PRN Constipation Sodium Chloride 1,000 mls @ 50 mls/hr 12/09/20 09:50 12/09/20 10:22 Normal Saline IV 50 mls/hr ASDIRECTED DONNY Administration Latanoprost 0 ml 12/09/20 20:00 Latanoprost 0.005% Ophth Soln 2.5 Ml Bottle EYELF BEDTIME [facility] Levothyroxine Sodium 100 mcg 12/10/20 07:00 Levothyroxine 100 Mcg Tab PO ACBREAKFAST [facility] Lorazepam 0.5 mg 12/09/20 10:13 12/09/20 10:46 Lorazepam 0.5 Mg Tab PO 0.5 mg Q8H PRN Administration Anxiety Metoprolol Succinate 25 mg 12/10/20 08:00 Metoprolol Succinate 25 Mg Tab.Er PO DAILY [facility] Mirtazapine 15 mg 12/09/20 20:00 Mirtazapine 15 Mg Tab PO BEDTIME [facility] Morphine Sulfate 2 - 4 mg 12/09/20 15:29 12/09/20 16:19 Morphine 4 Mg/Ml Vial IVPUSH 2 mg Q4H PRN Administration Pain Ondansetron HCl 4 mg 12/09/20 09:50 Ondansetron 4 Mg/2 Ml Sdv IV Q4H PRN Nausea/Vomiting Pantoprazole Sodium 40 mg 12/09/20 20:00 Pantoprazole 40 Mg Tab.Cr PO BID [facility] Sertraline HCl 50 mg 12/10/20 08:00 Sertraline 25 Mg Tab PO DAILY [facility] Timolol Maleate 0 ml 12/10/20 08:00 Timolol Maleate 0.5% Ophth Soln 5 Ml Bottle EYEBOTH DAILY [facility] Discontinued Medications Generic Name Dose Route Start Last Admin Trade Name Freq PRN Reason Stop Dose Admin Acetaminophen 650 mg 12/09/20 09:50 Acetaminophen 325 Mg Tab PO Q4H PRN Pain (Mild 1-3)/fever Aspirin 324 mg 12/09/20 08:18 12/09/20 08:19 Aspirin 81 Mg Tab.Chew PO 12/09/20 08:19 324 mg ONETIME ONE Administration Departure - Departure Time of Disposition: 09:30 Disposition: Admitted As Inpatient 65 Clinical Impression: Palliative care status, Weakness generalized, ST segment depression, Elevated troponin, Metastasis from malignant melanoma of skin, Adult failure to thrive - Discharge Information *PRESCRIPTION DRUG MONITORING PROGRAM REVIEWED*: No *COPY OF PRESCRIPTION DRUG MONITORING REPORT IN PATIENT DEEPTI: No Sepsis Event Note (ED) - Evaluation Sepsis Screening Result: No Definite Risk - Focused Exam Vital Signs: Vital Signs Temp Pulse Resp BP Pulse Ox 12/09/20 09:20 97.4 F 96 20 109/46 L 96 12/09/20 08:30 106 H 25 H 122/57 L 97 12/09/20 08:15 96.1 F L 105 H 22 H 117/56 L 100 - Problem List & Annotations (1) Metastasis from malignant melanoma of skin SNOMED Code(s): 274365119 Code(s): C79.9 - SECONDARY MALIGNANT NEOPLASM OF UNSPECIFIED SITE; C43.9 - MALIGNANT MELANOMA OF SKIN, UNSPECIFIED Status: Acute Current Visit: Yes (2) Weakness SNOMED Code(s): 76427062 Code(s): R53.1 - WEAKNESS Status: Acute Priority: High Current Visit: Yes (3) Adult failure to thrive SNOMED Code(s): 639567696 Code(s): R62.7 - ADULT FAILURE TO THRIVE Status: Acute Current Visit: Yes (4) Palliative care status SNOMED Code(s): 673319314 Code(s): Z51.5 - ENCOUNTER FOR PALLIATIVE CARE Status: Acute Current Visit: Yes (5) Elevated troponin SNOMED Code(s): 869934231, 292359363, 857494242 Code(s): R77.8 - OTHER SPECIFIED ABNORMALITIES OF PLASMA PROTEINS Status: Acute Current Visit: Yes (6) ST segment depression SNOMED Code(s): 49828509 Code(s): R94.31 - ABNORMAL ELECTROCARDIOGRAM [ECG] [EKG] Status: Acute Current Visit: Yes - Problem List Review Problem List Initiated/Reviewed/Updated: Yes - My Orders Last 24 Hours: My Active Orders 12/09/20 08:22 Chest 2V [CR] Stat - Assessment/Plan Admission H&P: Please use this note as an admission H&P Last 24 Hours: My Active Orders 12/09/20 08:22 Chest 2V [CR] Stat Plan: Dillon is a direct admit to the hospital under acute care. Discussed into detail with Dillon his current status and with his . Dillon declines any further chemo treatment as this time. Laboratory work did show an indeterminate Troponin and questioning ST depression on EKG. Dillon declines consultation or transfer for cardiology at this timeas well. He asks that we keep him comfortable. He verbalized understanding of declining condition to include the possibility of . Dr. Becker aware of patient admission and in agreement.
[2020-12-09] MEDS: Morphine 4 MG/ML VIAL IVPUSH PRN ×2 (15:42→16:19)
[2020-12-09] MEDS ORDERED: Temazepam 15 MG Cap PO PRN (19:46)
[2020-12-09] MEDS ORDERED: Mirtazapine 15 MG Tab PO SCH (20:00)
[2020-12-09] MEDS ORDERED: Latanoprost 0.005% Ophth Soln 2.5 ML Bottle EYELF SCH (20:00)
[2020-12-09] MEDS: Pantoprazole 40 MG Tab.CR PO SCH (20:25)
[2020-12-10 01:06] VITALS: BP 107/32; PULSE 103
[2020-12-10] MEDS: Sodium Chloride 0.9% 1,000 ML IV SCH (05:34)
[2020-12-10] MEDS ORDERED: Levothyroxine 100 MCG Tab PO SCH (07:00)
[2020-12-10] MEDS ORDERED: Sertraline 25 MG Tab PO SCH (08:00)
[2020-12-10] MEDS ORDERED: atorvaSTATin 20 MG Tab PO SCH (08:00)
[2020-12-10] MEDS ORDERED: Aspirin 81 MG Tab.Chew PO SCH (08:00)
[2020-12-10] MEDS ORDERED: Timolol Maleate 0.5% Ophth Soln 5 ML Bottle EYEBOTH SCH (08:00)
[2020-12-10] MEDS ORDERED: Metoprolol Succinate 25 MG Tab.ER PO SCH (08:00)
[2020-12-10] MEDS: Pantoprazole 40 MG Tab.CR PO SCH (09:34)
--- NOTE | 2020-12-11 10:08 | PCM.DCSUM1 ---
Discharge Summary - Hospital Course Free Text/Narrative:: Dillon is an 80 year old male who presented to ER and evaluated by Scottie Dent. Patient initially had an appointment in clinic due to increasing weakness but due to shortness of breath and right sided chest pain was triaged over to ER. Patient has known metastatic lung cancer, has been undergoing chemotherapy. Has had increasing weakness, actually crawling around as unable to even walk at times. Was seen by his oncologist Dr. Solis the day prior, had IV fluids but did not want to be admitted in [place]. Chest pain on the right side comes and goes. Has not been able to sleep well. Labs noted troponin of indeterminate range. Patient informed and declines further work up or cardiology consult. Does not feel "this is a way to live". He was admitted due to weakness. IV fluids started. Aware that declining status and without further treatment, could lead to . Diagnosis: Stroke: No Modified [place] Scale: No Symptoms at All Modified [place] Scale Score: 0 - Discharge Data Discharge Date: 12/10/20 Discharge Disposition: 20 Condition: - Referral to Home Health Primary Care Physician: Pete Dent PA-C - Discharge Diagnosis/Problem(s) (1) Elevated troponin SNOMED Code(s): 416548460, 842235337, 523432499 ICD Code: R77.8 - OTHER SPECIFIED ABNORMALITIES OF PLASMA PROTEINS Status: Acute Priority: High (2) Metastasis from malignant melanoma of skin SNOMED Code(s): 237750474 ICD Code: C79.9 - SECONDARY MALIGNANT NEOPLASM OF UNSPECIFIED SITE; C43.9 - MALIGNANT MELANOMA OF SKIN, UNSPECIFIED Status: Acute Priority: High - Patient Summary/Data Consults: Consultations 12/09/20 09:50 Consult to Case Management/Network Liaison [CONS] Routine PT Evaluation and Treatment [CONS] Routine Hospital Course: Patient admitted with weakness, indeterminate troponin. Patient declined having further work up or cardiology consult. Given IV fluids. Repeat troponin, still indeterminate. Was resting comfortably. On nursing rounds, patient was found to be apneic, no heart beat, no attempt to be call for assistance. Is DNR. notified. - Discharge Plan *PRESCRIPTION DRUG MONITORING PROGRAM REVIEWED*: No *COPY OF PRESCRIPTION DRUG MONITORING REPORT IN PATIENT DEEPTI: No Home Medications: Home Meds Levothyroxine Sodium [Synthroid] 100 mcg PO DAILY 04/26/15 [History] Metoprolol Succinate [Toprol XL 50mg] 25 mg PO DAILY 04/26/15 [History] Mirtazapine [Remeron] 15 mg PO BEDTIME 04/26/15 [History] atorvaSTATin Calcium [Atorvastatin Calcium] 40 mg PO DAILY 04/26/15 [History] Sertraline HCl 50 mg PO DAILY 03/04/17 [History] Pantoprazole Sodium [Protonix] 40 mg PO BID 03/07/17 [History] Latanoprost [Xalatan 0.005% Ophth Soln] 1 drop EYELF BEDTIME 01/24/18 [History] timoloL maleate [Timoptic 0.5% Ophth Soln] 1 drop EYEBOTH DAILY 08/24/19 [History] Cholecalciferol (Vitamin D3) [Vitamin D3] 2,000 unit PO DAILY 04/29/20 [History] Acetaminophen 650 mg PO Q4H PRN 10/07/20 [History] Aspirin 81 mg PO DAILY 10/07/20 [History] Denosumab [Prolia] 1 dose SQ ASDIRECTED 10/07/20 [History] Melatonin 6 mg PO BEDTIME 10/07/20 [History] Ondansetron [Ondansetron ODT] 4 mg PO QID PRN 10/07/20 [History] Forms: ED Department Discharge Referrals: Pete Dent PA-C [Primary Care Provider] - - Discharge Summary/Plan Comment DC Time >30 min.: No - General Info Date of Service: 12/10/20 Admission Dx/Problem (Free Text: Metastatic Melanoma - Patient Data Vitals - Most Recent: Last Vital Signs Temp 96.8 F L 12/10/20 00:00 Pulse 103 H 12/10/20 00:00 Resp 20 12/10/20 00:00 BP 107/32 L 12/10/20 00:00 Pulse Ox 92 L 12/10/20 00:00 Weight - Most Recent: 158 lb 12.8 oz Med Orders - Current: Current Medications Discontinued Medications Acetaminophen (Acetaminophen 325 Mg Tab) 650 mg PO Q4H PRN PRN Reason: Pain (Mild 1-3)/fever Acetaminophen (Acetaminophen 325 Mg Tab) 650 mg PO Q4H PRN PRN Reason: Pain/Fever Aspirin (Aspirin 81 Mg Tab.Chew) 324 mg PO ONETIME ONE Stop: 04/02/21 08:19 Last Admin: 12/09/20 08:19 Dose: 324 mg Documented by: Aspirin (Aspirin 81 Mg Tab.Chew) 81 mg PO DAILY [facility] Last Admin: 12/10/20 09:34 Dose: Not Given Documented by: Atorvastatin Calcium (Atorvastatin 20 Mg Tab) 40 mg PO DAILY [facility] Last Admin: 12/10/20 09:34 Dose: Not Given Documented by: Docusate Sodium (Docusate Sodium 100 Mg Cap) 100 mg PO BID PRN PRN Reason: Constipation Sodium Chloride (Normal Saline) 1,000 mls @ 50 mls/hr IV ASDIRECTED [facility] Last Admin: 12/10/20 05:34 Dose: 50 mls/hr Documented by: Latanoprost (Latanoprost 0.005% Ophth Soln 2.5 Ml Bottle) 0 ml EYELF BEDTIME [facility] Last Admin: 12/09/20 20:25 Dose: 1 drop Documented by: Levothyroxine Sodium (Levothyroxine 100 Mcg Tab) 100 mcg PO ACBREAKFAST [facility] Last Admin: 12/10/20 06:44 Dose: Not Given Documented by: Lorazepam (Lorazepam 0.5 Mg Tab) 0.5 mg PO Q8H PRN PRN Reason: Anxiety Last Admin: 12/09/20 19:00 Dose: 0.5 mg Documented by: Metoprolol Succinate (Metoprolol Succinate 25 Mg Tab.Er) 25 mg PO DAILY [facility] Last Admin: 12/10/20 09:34 Dose: Not Given Documented by: Mirtazapine (Mirtazapine 15 Mg Tab) 15 mg PO BEDTIME [facility] Last Admin: 12/09/20 20:25 Dose: 15 mg Documented by: Morphine Sulfate (Morphine 4 Mg/Ml Vial) 2 - 4 mg IVPUSH Q4H PRN PRN Reason: Pain Last Admin: 12/09/20 16:19 Dose: 2 mg Documented by: Ondansetron HCl (Ondansetron 4 Mg/2 Ml Sdv) 4 mg IV Q4H PRN PRN Reason: Nausea/Vomiting Last Admin: 12/09/20 20:26 Dose: 4 mg Documented by: Pantoprazole Sodium (Pantoprazole 40 Mg Tab.Cr) 40 mg PO BID [facility] Last Admin: 12/10/20 09:34 Dose: Not Given Documented by: Sertraline HCl (Sertraline 25 Mg Tab) 50 mg PO DAILY [facility] Last Admin: 12/10/20 09:35 Dose: Not Given Documented by: Temazepam (Temazepam 15 Mg Cap) 15 mg PO BEDTIME PRN PRN Reason: Sleep Last Admin: 12/09/20 20:25 Dose: 15 mg Documented by: Timolol Maleate (Timolol Maleate 0.5% Ophth Soln 5 Ml Bottle) 0 ml EYEBOTH DAILY [facility] Last Admin: 12/10/20 09:34 Dose: Not Given Documented by:
== END 2020-12-10 13:00 | disposition expired | DRG 948 ==
LOC: CC.ED 08:07 → CC.MS 08:58 → UNDOADMIN 08:58 → CC.MS 09:29
PROVIDERS: ADMIT Physician Assistant Medical; ATTEND Family Medicine
DX: R53.1 Weakness (principal); C78.01 Secondary malignant neoplasm of right lung; C78.02 Secondary malignant neoplasm of left lung; C43.9 Malignant melanoma of skin, unspecified; C79.9 Secondary malignant neoplasm of unspecified site; Z51.5 Encounter for palliative care; R77.8 Other specified abnormalities of plasma proteins; Z85.820 Personal history of malignant melanoma of skin; R62.7 Adult failure to thrive; R94.31 Abnormal electrocardiogram [ECG] [EKG]; H54.7 Unspecified visual loss; H91.90 Unspecified hearing loss, unspecified ear; H40.9 Unspecified glaucoma; E78.00 Pure hypercholesterolemia, unspecified; I10 Essential (primary) hypertension; K21.9 Gastro-esophageal reflux disease without esophagitis; E03.9 Hypothyroidism, unspecified; Z79.01 Long term (current) use of anticoagulants; F32.9 Major depressive disorder, single episode, unspecified; F41.9 Anxiety disorder, unspecified; Z79.82 Long term (current) use of aspirin; Z87.891 Personal history of nicotine dependence; Z90.49 Acquired absence of other specified parts of digestive tract; Z95.2 Presence of prosthetic heart valve; Z95.828 Presence of other vascular implants and grafts; Z92.21 Personal history of antineoplastic chemotherapy; Z82.79 Family history of other congenital malformations, deformations and chromosomal abnormalities; Z68.20 Body mass index [BMI] 20.0-20.9, adult; Z98.49 Cataract extraction status, unspecified eye; Z79.890 Hormone replacement therapy; Z79.899 Other long term (current) drug therapy
CPT/HCPCS: 36415; 71046; 80053; 81001; 82550; 83615; 83690; 83735; 84484; 85025; 85610; 85730; 93005; 93010; 99285-25; A9270-GY; J2270; J2405; J7030